=== PATIENT | male | born 1995 | race Caucasian/White ===

== ENCOUNTER 2017-02-20 17:42 | Inpatient (IN) | payer OTHER ==
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
[2017-02-20] MEDS ORDERED: LORazepam 1 MG TAB PO STA (21:18)
[2017-02-20] MEDS ORDERED: ZIPRASIDONE 20 MG VIAL IM PRN (22:21)
[2017-02-20] MEDS ORDERED: MAGNESIUM HYDROXIDE 2,400 MG/10 ML CUP PO PRN (22:21)
[2017-02-20] MEDS ORDERED: MAG HYDROX/AL HYDROX/SIMETH 30 ML CUP PO PRN (22:21)
[2017-02-20] MEDS: QUEtiapine 100 MG TAB PO SCH (22:32)
[2017-02-20] MEDS: LORazepam 1 MG TAB PO PRN (22:37)
[2017-02-21] MEDS: NICOTINE 21MG/24HR PATCH TRANSDERM SCH ×2 (10:30→12:12)
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
[2017-02-21] MEDS: LORazepam 1 MG TAB PO PRN ×2 (12:14→22:57)
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
[2017-02-21] MEDS: QUEtiapine 100 MG TAB PO SCH (21:59)
[2017-02-21] MEDS ORDERED: QUETIAPINE FUMARATE 300 MG PO SCH (22:25)
[2017-02-22] MEDS: NICOTINE 21MG/24HR PATCH TRANSDERM SCH (10:22)
--- NOTE | 2017-02-22 11:09 | P.PN ---
Progress Note - Text Interval history: The patient is found in his room sleeping in bed. He is verbally arousable. He does not wish to follow me to an interview room to speak. He does appear sedated. Staff report that he has not eaten breakfast this morning has not attended groups. They report that yesterday afternoon he continued to demonstrate bizarre behavior make bizarre statements and would come out of his room without clothing. Mental status exam: The patient is a thin male he is lying in bed covered with a blanket eye contact is poor he provides brief quiet answers to questions asked. He keeps his eyes closed. He does shake his head yes or no to respond to some questions as well. He describes his mood as being "exquisite ". He provides no responses to questions pertaining to the presence of hallucinations or specific delusions. He provides no answer to questions regarding suicidal or homicidal thinking. He demonstrates no agitated behavior. Plan: We will continue the Seroquel but I will reduce the dose to 200 mg at bedtime as it seems to 300 mg dose was too high to initiate the medication. Vital signs reviewed. We will continue to monitor him for safety. For acute symptoms of psychosis sees requiring continued psychiatric inpatient care.
[2017-02-22] MEDS: ACETAMINOPHEN TAB 325 MG TAB PO PRN (16:02)
[2017-02-22] MEDS: LORazepam 1 MG TAB PO PRN (16:02)
[2017-02-22] MEDS: QUEtiapine 200 MG TAB PO SCH (22:24)
[2017-02-22] MEDS ORDERED: WATER FOR INJECTION, STERILE 10 ML IV ONE (23:11)
[2017-02-22] MEDS ORDERED: ZIPRASIDONE 20 MG VIAL IM ONE (23:11)
[2017-02-23] MEDS: NICOTINE 21MG/24HR PATCH TRANSDERM SCH ×2 (11:51→12:37)
[2017-02-23] MEDS ORDERED: WATER FOR INJECTION, STERILE 10 ML IV ONE (12:45)
--- NOTE | 2017-02-23 13:16 | P.PN ---
Progress Note - Text Interval history: Patient seen in [facility] today for Dr. Gallardo. The patient was initially seen out in the hallway with security and nurses there and he was seated in the area by the phone. Staff were discussing with him regarding receiving an IM injection which he did not want. I talked with the patient briefly and he is agreeable to come to the interview room to talk about alternative medication options. We discussed him receiving a dose of Seroquel which he was agreeable with. He states that he does not like to get IM injections. He states this episode started after he had talked with his mom on the phone and he relates that he felt she was controlling him. He then called his stepdad and felt he was supporting his mom so he called his girlfriend which did help him. Per staff, his mom had called the unit. Current diagnosis is unspecified psychotic disorder. Mental status exam: He is alert and cooperative with the interview. His affect overall is restricted. He does not show any significant agitation at this time. Denies any current thoughts of harm to self or others. He is agreeable to initiate an oral dose of Seroquel in the daytime. He does have a dose scheduled at night. Plan: We'll order a dose of Seroquel 50 mg now and daily to accompany his 200 mg at bedtime dose. We'll monitor his response and monitor for any agitated behavior. The Geodon Im is ordered as needed. We'll monitor for any medication side effects.
[2017-02-23] MEDS: QUEtiapine 50 MG TAB PO SCH ×2 (13:40→15:44)
--- NOTE | 2017-02-23 16:41 | P.PN ---
Progress Note - Text Met with patient again at patient's request. He had refused the added dose of Seroquel earlier today. Patient talked about wanting to take 50 mg of Geodon and then also makes reference to perhaps wanting to be switched over to Geodon orally instead of the Seroquel. Discussed with the patient that the plan was to titrate up on his Seroquel to add a 50 mg dose daily to help him. He again stated that he does not like the injection of Geodon and relayed that he wanted that to be discontinued because just thought of it bothers him. He makes reference to issues of control. His thought processes do show some disorganization at times. He talks or recent stressor was dog passing away. He makes reference to a lot of thoughts going through his mind. Discussed with him again the potential benefits of taking the extra dose of Seroquel which she at this time refuses. Explained to him that the injection of Geodon is ordered only as needed.
[2017-02-23] MEDS: QUEtiapine 200 MG TAB PO SCH (21:10)
[2017-02-23] MEDS: ACETAMINOPHEN TAB 325 MG TAB PO PRN (22:56)
[2017-02-24] MEDS: QUEtiapine 50 MG TAB PO SCH (11:17)
[2017-02-24] MEDS: NICOTINE 21MG/24HR PATCH TRANSDERM SCH (11:17)
--- NOTE | 2017-02-24 15:09 | P.PN ---
Progress Note - Text Interval history: Patient seen in [facility] today for Dr. Gallardo. He reports that he feels like he was forgetful of things for a certain period after receiving the IM Geodon, makes reference during the session regarding suing related to getting the shot. He was cooperative with taking the oral Seroquel this morning and relays that it did help him slow things down. It did Not make him feel too sedated. He does describe feeling as though he has difficulties with his memory. We discussed that memory difficulties can accompany for example mood disturbance He makes reference to his mom having brought in clothes for him. Mental status exam: He is alert and cooperative. He does show some range of affect. His thought processes do show some disorganization at times. His mood overall seems to be improved. He is not showing any agitation. He does not voice any thoughts of harm to self or others. He does not verbalize any hallucinations. Plan: We'll maintain current psychotropic medication regimen. We'll monitor for any medication side effects. Dr. Gallardo to resume care of this patient starting tomorrow.
[2017-02-24] MEDS: QUEtiapine 200 MG TAB PO SCH (21:02)
[2017-02-25] MEDS: NICOTINE 21MG/24HR PATCH TRANSDERM SCH (10:12)
[2017-02-25] MEDS: QUEtiapine 50 MG TAB PO SCH (10:12)
--- NOTE | 2017-02-25 11:07 | P.PN ---
Progress Note - Text Interval history: The patient is found in the hallway he follows me to an interview room. The patient states he would like to be discharged and he is mildly agitated when he learns that we are not planning for discharge today. He spent several minutes stating he does not believe I am Dr. Gallardo. He states I have not met with him before and I have only seen him at [facility]. Reality orientation was provided but he is not able to accept that. He freely describes paranoid and persecutory thoughts. Staff report that the patient has been intrusive and has been agitating to other patients. Mental status exam: The patient is a thin male he is alert he is dressed in his own clothing. Hygiene and grooming are adequate. Eye contact is staring in nature. He suspicious and guarded. He indicates he feels I have ulterior motives. He reports feelings of irritability and anger. He demonstrates no verbal or physical aggressiveness during our session. He intrusively yells my name or approaches me in the hallway and tries to discuss his treatment in that setting. He does require redirection. Insight and judgment are poor. He is reporting no suicidal or homicidal ideation. He denies having any auditory or visual hallucinations however he is likely underreporting. He is oriented to person daily week as Saturday year and place. Plan: The patient will continue on the Seroquel we will titrate the Seroquel to 300 mg at bedtime continue the 50 mg dose during the day that was started over the weekend. The patient continues to demonstrate psychosis he does not appear to be overly sedated due to the Seroquel at this time. We will continue to provide reality orientation when possible. We will continue monitoring him for safety.
[2017-02-25] MEDS: QUEtiapine 100 MG TAB PO SCH (21:33)
[2017-02-26] MEDS: NICOTINE 21MG/24HR PATCH TRANSDERM SCH (08:35)
[2017-02-26] MEDS: QUEtiapine 50 MG TAB PO SCH (08:35)
--- NOTE | 2017-02-26 08:49 | P.PN ---
Progress Note - Text Interval history: The patient is found at the [facility] he follows me to an interview room. He reports he slept well last night however it's documented he only slept 4 hours. He has been compliant with his medication we discussed the recent titration. The patient admits that he feels aggravated that he has not been discharged. He is lacking insight into his behavior and delusional thinking. Again he spontaneously reports paranoid and persecutory thoughts. He states he plans on filing complaints with the recipient's rights officer as he is still here in the hospital. Mental status exam: The patient is a thin male he seated calmly despite his frustration he demonstrates no verbal or physical aggressiveness. Eye contact is staring in nature. He continues to feel that we and an ulterior motive in keeping him here. He continues to have some paranoid and persecutory thoughts with some grandiose thinking. He is reporting no suicidal or homicidal ideation. Insight and judgment are impaired. Thought process is more linear he will still get off of topic randomly. No abnormal involuntary movements observed. He maintains a fairly Belva affect today. He describes and agitated mood. Plan: We will continue to titrate the Seroquel and increase to 100 mg in the morning 300 mg at bedtime. Vital signs reviewed. The patient requires continued psychiatric hospitalization for symptoms of psychosis and thought disorganization at times. He is encouraged to a properly participate in the milieu.
[2017-02-26] MEDS ORDERED: QUEtiapine 50 MG TAB PO ONE (09:00)
[2017-02-26] MEDS: LORazepam 1 MG TAB PO PRN (09:29)
[2017-02-26] MEDS: QUEtiapine 100 MG TAB PO SCH (21:43)
--- NOTE | 2017-02-27 09:31 | P.PN ---
Progress Note - Text Interval history: The patient is found in his room he reluctantly gets up to speak with me in an interview room. He states that we are ruining his life by keeping him here. He feels he should never have been admitted and certainly doesn't need to continue staying here. He is quite tired during our session but not lethargic. It appears he took an Ativan sometime this morning. He has no questions regarding the Seroquel. He reports selectively attending groups. Mental status exam: The patient's is seated calmly in the chair eye contact is intermittent. He speaks quietly. He has some spontaneous speech. He briefly response to questions asked. He appears tired but he is not lethargic area he is endorsing no suicidal or homicidal thoughts. He does continue to convey some paranoid and suspicious thinking. He describes persecutory thoughts stating that this is incarceration for him and he doesn't understand why he is here. Insight and judgment are impaired. He demonstrates no abnormal involuntary movements he demonstrates no verbal or physical aggressiveness. He denies having any auditory or visual hallucinations but could be underreporting. He is oriented to person place and date. Hygiene and grooming are fair. Plan: The patient will continue on the Seroquel we will increase the evening dose to 400 mg. It's likely that he appears tired this morning due to taking Ativan. We will continue to monitor him for safety and encourage his participation in the milieu. He requires continued psychiatric hospitalization for symptoms of psychosis.
[2017-02-27] MEDS: NICOTINE 21MG/24HR PATCH TRANSDERM SCH (09:54)
[2017-02-27] MEDS: QUEtiapine 100 MG TAB PO SCH (09:54)
[2017-02-27] MEDS: LORazepam 1 MG TAB PO PRN (09:56)
[2017-02-27] MEDS: QUEtiapine 400 MG TAB PO SCH ×2 (21:57→23:23)
[2017-02-27] MEDS ORDERED: QUEtiapine 100 MG TAB PO SCH (22:15)
--- NOTE | 2017-02-28 10:24 | P.PN ---
Progress Note - Text Interval History: The patient is found in his room he reluctantly gets up to speak with me. Staff report that the patient was found in a shower with appear last evening although there was no evidence of physical contact. The patient states he was just sitting in there because it was quiet and dark. We discussed the use of medication. Specifically we addressed his concerns related to Seroquel. He continues to lack insight into his symptoms and wants to be discharged. He states his stepfather and fianc visited last evening. He has not attended groups this morning or breakfast but plans on attending later in the day. Mental status exam: The patient is a thin male he seated calmly eye contact is staring in nature. He reports his mood is fine although he is frustrated he is still here. He is reporting no suicidal or homicidal thoughts he endorses no symptoms of psychosis however he continues to make bizarre statements and demonstrates bizarre behavior. He continues to accuse me of holding him here for unknown reasons when "everyone else thinks I'm fine to leave". He demonstrates no verbal or physical aggressiveness. No abnormal involuntary movements observed. Plan: The patient will be continued on Seroquel 100 mg in the morning 400 mg in the evening. He was previously stabilized on 600 mg during a previous hospitalization. Social work will contact family to discuss the interaction last evening. Vital signs reviewed. We will continue to monitor him for safety and provide reality orientation when possible.
[2017-02-28] MEDS: NICOTINE 21MG/24HR PATCH TRANSDERM SCH (11:18)
[2017-02-28] MEDS: QUEtiapine 100 MG TAB PO SCH (11:19)
[2017-02-28] MEDS: LORazepam 1 MG TAB PO PRN (15:43)
[2017-02-28] MEDS ORDERED: QUEtiapine 400 MG TAB PO SCH (21:00)
[2017-03-01] MEDS: NICOTINE 21MG/24HR PATCH TRANSDERM SCH (10:48)
[2017-03-01] MEDS: QUEtiapine 100 MG TAB PO SCH (11:03)
[2017-03-01] MEDS: OLANZapine 5 MG TAB PO PRN (13:01)
[2017-03-01] MEDS: ACETAMINOPHEN TAB 325 MG TAB PO PRN (21:35)
[2017-03-02 06:34] VITALS: RESP 16
[2017-03-02] MEDS: NICOTINE 21MG/24HR PATCH TRANSDERM SCH (09:10)
[2017-03-02] MEDS: OLANZapine 5 MG TAB PO PRN ×2 (09:11→21:27)
--- NOTE | 2017-03-02 12:47 | PN ---
DATE OF SERVICE: 03/01/2017 CHIEF COMPLAINT: The patient was admitted due to symptoms of psychosis. He has a prior diagnosis of bipolar disorder. He had stopped taking medications. He was making references that were delusional. He had hallucinations. He had suspiciousness. INTERVAL HISTORY: The patient has been doing fair. He continued to be distressed about being in the hospital. He says that he has various side effects of his medications. He does not like the increase in his Seroquel. He notes that he has been struggling in telephone contacts he has with his parents. Apparently, his stepfather called the transition social worker and indicated that the family did not want him calling his mother. He had been calling frequently where the two of them then get into quite a bit of arguing. On the patients part, he says he feels his mother is trying to control him and does not acknowledge things that are important in his life. He points to the fact that he was stable psychiatrically for an extended period of time of over a year and that he believes the current hospitalization was not necessary. We had an extensive discussion regarding these issues including behavior he has shown on the unit. He can be quite irritable and have an angry manner. He will be avoidant. I met with the patient and transition social worker and we reviewed these issues as well as what would be a reasonable treatment plan. For the patients part, he said that he would be comfortable at taking 300 mg of Seroquel just at bedtime with none in the daytime. He feels the morning dose of Seroquel makes him tired. He discussed issues about his mother being guardian. We discussed the process by which he can approach the court and if he can move towards at least beginning to get a public guardian and from there working to get released from having guardianship. The patient stated that was his goal. We discussed the behavior that he would need to demonstrate on the unit as part of planning for discharge. On the patients part, he said he would make an effort to not get into conflicted phone calls with his mother. In fact, it was suggested that he might consider some brief contacts leaving some messages that apology for his own behavior and desire to work on having a more productive relationship. At the same time, we discussed the need for him to engage in treatment on the unit including groups and appropriate interactions with staff. We discussed ways that he can work on managing some of his periods where he gets anxious and distressed including a walking program and activities to help calm him and divert some of his attention. The patient does seem to be willing to make an effort in that regard. He has not had change in his general health. He appears to tolerate psychotropic medications. MENTAL STATUS: The patient had fairly good eye contact. He was somewhat restless though he seemed to quiet down. As far as psychomotor activity his thoughts were clear and coherent. Additionally he rambled some when he would talk about some of the issue with his mother. As the interview went on, he was more interactive. His affect has seemed to move from being anxious to a calmer manner. His mood improved as the interview went on. He had a relaxed manner by the end of the interview. There were no indications of thought disorder. ASSESSMENT: I will continue the current diagnosis and treatment plan. As noted above, we reviewed behavior issues that would be critical for the patient to move towards discharge planning. I will continue Seroquel XR 300 mg to take at 7 in the evening. In addition, I will start Zyprexa 5 mg twice a day prn. Informed the patient that he can utilize Zyprexa as needed if he does get into more distress and anxiety. That along with non pharmacological ways to help control his anxiety, he has some medications for backup. We will continue to focus on stabilization and discharge planning. I discussed with the patient that we could possibly target early in the week for discharge though not until he has follow-up with Dr. Gallardo. I suggested that discharge planning would depend on his level of function over the next few days. HELEN
--- NOTE | 2017-03-02 16:01 | P.PN ---
Progress Note - Text Date of service: 03/02/2017 Chief complaint: "I feel very good" Subjective: The patient has been seen today as follow-up, chart reviewed, case discussed with the treatment team. Patient slept about 7 hours last night. Patient has been going to groups and other unit activities. Patient reports fair appetite problems. The patient stated he feels a stable emotionally and he denies any depression, severe anxiety, or any drastic mood swings. The patient denies any manic symptoms including sustained period of time with elevated or irritable mood, impulsive or irrational behavior, inflated self-esteem, or absence need to sleep due to increases goal-directed activities. The patient denies any auditory or visual hallucinations. Also the patient denies any paranoid ideation. The patient is compliant with his medications and denies any adverse reactions. Review of other systems: Patient denies any physical symptoms besides what has been mentioned above. No breathing problems, no chest pain reported today. Objective: Vitals has been reviewed. Mental status examination; Appearance: The patient appears stated age,fairly groomed and dressed, no specific features. Gait/posture: Normal arm swinging: No abnormal movements. Attitude and behavior: engaged, cooperative, fair eye contact. Motor activity: normal psychomotor activity Speech: normal rate, rhythm and articulation Mood:not depressed Affect: normal , congruent Thought form: goal-directed, linear, coherent. Thought content: Non-delusional, denies suicidal thoughts, denies homicidal thoughts, denies intentions or plans. Perception: Denies any auditory or visual hallucinations Attention: No impairment. Patient was able to repeat serial 7. Orientation: Patient patient was fully oriented to time place person and situation. Insight: Patient has fair insight about his psychiatric disorder. Judgment: Patient has fair judgment about his psychiatric treatment. Assessment: Psychosis unspecified History of bipolar 1 disorder Rule out schizoaffective disorder Cannabis use disorder Plan: Continue with inpatient psychiatric hospitalization for monitoring and continue treatment. Continue group therapy and other unit activities. Continue psychiatric medications: Seroquel 300mg HS as mood stabilizer Discharge planning is ongoing.
[2017-03-03] MEDS: ACETAMINOPHEN TAB 325 MG TAB PO PRN (08:17)
[2017-03-03] MEDS: NICOTINE 21MG/24HR PATCH TRANSDERM SCH (08:17)
[2017-03-03] MEDS ORDERED: BENZOCAIN/BENZALKONM ORAL GEL 12 GM TUBE MM PRN (11:47)
--- NOTE | 2017-03-03 12:05 | P.PN ---
Progress Note - Text Date of service: 03/03/2017 Chief complaint: "I broke my tooth" Subjective: The patient has been seen today as follow-up, chart reviewed, case discussed with the treatment team. Patient slept about 6 hours last night. Patient has been going to groups and other unit activities. Patient reports fair appetite problems. The patient reports in general feel stable emotionally and denies feeling depressed, severe anxiety or drastic mood swings. The patient was little stressed because of dental pain. Patient reports probably he was grinding his teeth during sleep. The patient denies any auditory or visual hallucinations. Also the patient denies any paranoid ideation. The patient is compliant with his medications and denies any adverse reactions. Review of other systems: Patient denies any physical symptoms besides what has been mentioned above. No breathing problems, no chest pain reported today. Objective: Vitals has been reviewed. Mental status examination; Appearance: The patient appears stated age,fairly groomed and dressed, no specific features. Gait/posture: Normal arm swinging: No abnormal movements. Attitude and behavior: engaged, cooperative, fair eye contact. Motor activity: normal psychomotor activity Speech: normal rate, rhythm and articulation Mood: not depressed Affect: normal , congruent Thought form: goal-directed, linear, coherent. Thought content: Non-delusional, denies suicidal thoughts, denies homicidal thoughts, denies intentions or plans. Perception: Denies any auditory or visual hallucinations Attention: No impairment. Patient was able to repeat serial 7. Orientation: Patient patient was fully oriented to time place person and situation. Insight: Patient has fair insight about his psychiatric disorder. Judgment: Patient has fair judgment about his psychiatric treatment. Assessment: Psychosis unspecified History of bipolar 1 disorder Rule out schizoaffective disorder Cannabis use disorder Plan: Continue with inpatient psychiatric hospitalization for monitoring and continue treatment. Continue group therapy and other unit activities. Continue psychiatric medications: Seroquel 300mg HS as mood stabilizer Orajel and Motrin PRN for dental pain Discharge planning is ongoing.
[2017-03-03] MEDS: IBUPROFEN 200 MG TAB PO PRN ×2 (12:29→22:35)
[2017-03-03] MEDS: OLANZapine 5 MG TAB PO PRN (21:28)
[2017-03-04 00:21] VITALS: BP 139/66; PULSE 70; TEMP 98.3
[2017-03-04] MEDS: NICOTINE 21MG/24HR PATCH TRANSDERM SCH (10:58)
[2017-03-04] MEDS: OLANZapine 5 MG TAB PO PRN (10:59)
== END 2017-03-04 13:53 | disposition home or self-care (01) | DRG 885 ==
LOC: EEVIPCON 17:42 → EC 17:42 → 3MHU 21:07
PROVIDERS: ADMIT Psychiatry & Neurology Psychiatry; ATTEND Psychiatry & Neurology Psychiatry
DX: F29 Unspecified psychosis not due to a substance or known physiological condition (principal); Z91.19 Patient's noncompliance with other medical treatment and regimen; F41.9 Anxiety disorder, unspecified; F17.200 Nicotine dependence, unspecified, uncomplicated; F12.90 Cannabis use, unspecified, uncomplicated; K08.89 Other specified disorders of teeth and supporting structures; Z79.899 Other long term (current) drug therapy; Z80.7 Family history of other malignant neoplasms of lymphoid, hematopoietic and related tissues; Z82.49 Family history of ischemic heart disease and other diseases of the circulatory system; Z83.3 Family history of diabetes mellitus
CPT/HCPCS: 80306; 82075

== ENCOUNTER 2017-04-18 21:33 | Inpatient (IN) | payer MEDICAID, OTHER ==
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
[2017-04-18] MEDS ORDERED: ARIPiprazole 5 MG TAB PO STA (23:29)
[2017-04-19 00:30] VITALS: BMI 22.4
[2017-04-19] MEDS ORDERED: LORazepam 1 MG TAB PO PRN (01:50)
[2017-04-19] MEDS ORDERED: ZIPRASIDONE 20 MG VIAL IM PRN (01:50)
[2017-04-19] MEDS ORDERED: MAG HYDROX/AL HYDROX/SIMETH 30 ML CUP PO PRN (01:50)
[2017-04-19] MEDS ORDERED: MAGNESIUM HYDROXIDE 2,400 MG/10 ML CUP PO PRN (01:50)
[2017-04-19] MEDS: NICOTINE 7MG/24HR PATCH TRANSDERM SCH ×2 (09:08→09:13)
[2017-04-19] MEDS: ACETAMINOPHEN TAB 325 MG TAB PO PRN (09:13)
[2017-04-19 10:27] LABS: Basophils % (A) 0 %; CHCM 33.3; Eosinophils # (A) 0.1 k/uL (0-0.7); Eosinophils % (A) 1 %; HCT 42.9 % (39.0-53.0); HGB 13.9 gm/dL (13.0-17.5); Luc # (Auto) 0.09; Luc % (Auto) 2; Lymphocytes # (A) 1.4 k/uL (1.0-4.8); Lymphocytes % (A) 27 %; MCH 29.5 pg (25.0-35.0); MCHC 32.5 g/dL (31.0-37.0); MCV 90.8 fL (80.0-100.0); Mean Platelet Volume 7.8; Monocytes # (A) 0.4 k/uL (0-1.0); Monocytes % (A) 7 %; Neutrophils # (A) 3.2 k/uL (1.3-7.7); Neutrophils % (A) 63 %; RBC 4.72 m/uL (4.30-5.90); RDW 14.3 % (11.5-15.5); WBC 5.1 k/uL (4.0-11.0); WBC (Perox) 4.69
[2017-04-19 11:02] LABS: Hemoglobin A1C 5.2 % (4.2-6.1)
[2017-04-19 11:03] LABS: ALT 30 U/L (21-72); AST 22 U/L (17-59); Alkaline Phosphatase 72 U/L (38-126); Anion Gap 12 mmol/L; Blood Urea Nitrogen 14 mg/dL (9-20); Calcium 9.4 mg/dL (8.4-10.2); Carbon Dioxide 27 mmol/L (22-30); Chloride 105 mmol/L (98-107); Cholesterol 99 mg/dL (<200); Glucose 77 mg/dL (74-99); HDL Cholesterol 41 mg/dL (40-60); Non-African American GFR(MDRD) >60 (>60 ml/min/1.73 sqM); Potassium 4.8 mmol/L (3.5-5.1); Sodium 144 mmol/L (137-145); Total Bilirubin 0.6 mg/dL (0.2-1.3); Total Protein 7.5 g/dL (6.3-8.2)
[2017-04-19] MEDS: LORazepam 1 MG TAB PO SCH ×2 (16:17→21:08)
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
[2017-04-20 06:41] VITALS: RESP 16
[2017-04-20] MEDS: ARIPiprazole 5 MG TAB PO SCH (08:51)
[2017-04-20] MEDS: NICOTINE 21MG/24HR PATCH TRANSDERM SCH (08:51)
[2017-04-20] MEDS: LORazepam 1 MG TAB PO SCH ×3 (08:51→21:58)
--- NOTE | 2017-04-20 15:35 | P.PN ---
Progress Note - Text Progress Note Date: 04/20/17 Interval history: Patient is seen in cross coverage today for Dr. Graves. He seems to be eating well overall and does not voice any adverse psychotropic medication side effects. He does describe that he is hungry now because he didn 't eat a full lunch. He does describe feeling better. Mental status exam: He is alert and cooperative with the interview. His speech is fluent, not rapid or pressured. Thought processes overall are organized. He denies any thoughts of harm to self or others. He seems to report that his mood is doing better. In describes it as an 8 out of 10. She does not show any agitation. Plan: We'll maintain current psychotropic medication regimen. Patient is reporting improvement. We will monitor for any medication side effects monitor his ongoing response. Continue to cover this patient for Dr. Graves through the weekend.
[2017-04-20 16:57] LABS: Appearance,Urine Clear (Clear); Bilirubin,Urine Negative (Negative); Glucose,Urine (UA) Negative (Negative); Ketones,Urine Negative (Negative); Leukocyte Esterase,Urine Negative (Negative); Nitrite,Urine Negative (Negative); Protein,Urine Negative (Negative); Specific Gravity,Urine 1.008 (1.001-1.035); UA Billing (MACRO vs. MICRO) CHEM; Urobilinogen,Urine <2.0 mg/dL (<2.0)
[2017-04-21] MEDS: ARIPiprazole 5 MG TAB PO SCH (10:03)
[2017-04-21] MEDS: LORazepam 1 MG TAB PO SCH ×4 (10:03→21:29)
[2017-04-21] MEDS: NICOTINE 21MG/24HR PATCH TRANSDERM SCH (10:03)
[2017-04-21] MEDS: ACETAMINOPHEN TAB 325 MG TAB PO PRN (12:31)
--- NOTE | 2017-04-21 18:08 | P.PN ---
Progress Note - Text Progress Note Date: 04/21/17 Interval history: Patient seen in cross coverage today for Dr. Graves. He does report feeling tired and wonders if this is coming from the Abilify. His Abilify scheduled in the morning. He relates that the Ativan does not cause sedation for him. It does help calm him. He states he talked with his fiance on the phone and things seem to be going well. He states that he does feel numb today. Mental status exam: He is alert and cooperative with the interview. His speech is fluent, not rapid or pressured. Thought processes are organized. His mood seems to be pretty stable he does describe feeling numb. He denies any thoughts of harm to self or others. He does not verbalize any hallucinations, he does not make any keren delusional statements. He does not show any agitation. Plan: We'll maintain current psychotropic medication regimen. Consider changing the scheduling of Abilify to bedtime if it is felt that it is causing some sedation. Dr. Graves resume care this patient starting tomorrow.
[2017-04-22] MEDS: ARIPiprazole 5 MG TAB PO SCH (10:05)
[2017-04-22] MEDS: LORazepam 1 MG TAB PO SCH ×2 (10:05→21:40)
[2017-04-22] MEDS: NICOTINE 21MG/24HR PATCH TRANSDERM SCH ×2 (10:08→12:22)
--- NOTE | 2017-04-22 19:22 | P.PN ---
Progress Note - Text Progress Note Date: 04/29/17 Vital Signs: Temp 97.6 F 04/22/17 07:02 Pulse 50 L 04/22/17 07:02 Resp 16 04/22/17 07:02 BP 100/53 04/22/17 07:02 Pulse Ox 98 04/18/17 21:36 Interval History: Patient interviewed privately. Patient looks more dull today and less energetic than previous exams. Patient doesn't endorse any new complaints although after multiple inquiries finally admits to difficulty staying asleep at night and waking up and feeling tired. Patient has no residual signs or addi or hypomania at present. Patient is still agreeable to discharge home tomorrow. All questions/concerns answered. Mental Status Exam: Appearance: alert, well groomed, appears stated age, steady gait Behavior: no psychomotor agitation, no abnormal movements, fair eye contact Attitude: cooperative Speech: normal rate, rhythm, fluency, articulation, volume, and prosody; primary language: Qatari Mood: "tired" Affect: dull Thought processes: linear Thought content: patient does not appear to be responding to internal stimuli; patient auditory and visual hallucinations, no delusions appreciated, denies SI/HI Insight: poor - improving Judgment: fair Cognitive: oriented to all 3 spheres, average intelligence Current Medications: Generic Name Dose Route Trade Name Freq PRN Reason Acetaminophen 650 mg Tylenol Tab PO Q4HR PRN Pain/Discomfort Al Hydroxide/Mg Hydroxide 30 ml Maalox PO Q4HR PRN GI Upset Aripiprazole 5 mg Abilify PO HS KARLY Lorazepam 1 mg Ativan PO TID PRN Anxiety, Agitation Lorazepam 1 mg Ativan PO BID KARLY Magnesium Hydroxide 2,400 mg Milk Of Magnesia PO DAILY PRN Constipation Nicotine 1 patch Habitrol 21mg/24hr Patch TRANSDERM DAILY KARLY Trazodone HCl 150 mg Desyrel PO HS KARLY Ziprasidone 20 mg Geodon IM BID PRN Agitation or Acute Psychosis
[2017-04-22] MEDS ORDERED: ARIPiprazole 5 MG TAB PO SCH (21:00)
[2017-04-22] MEDS ORDERED: traZODone HCL 50 MG TAB PO SCH (21:00)
[2017-04-23 06:21] VITALS: PULSE 51; TEMP 97.9
[2017-04-23 06:22] VITALS: BP 92/49
[2017-04-23] MEDS: NICOTINE 21MG/24HR PATCH TRANSDERM SCH ×2 (10:14→12:16)
[2017-04-23] MEDS: LORazepam 1 MG TAB PO SCH ×2 (10:14→12:16)
[2017-04-23] MEDS ORDERED: ARIPiprazole 5 MG TAB PO SCH (21:00)
--- NOTE | 2017-05-12 16:58 | P.DS ---
Providers Date of admission: 04/18/17 23:24 Expected date of discharge: 04/23/17 Attending physician: Lucas Graves DO Consults: 04/19/17 01:50 Consult Physician Routine Consulting Provider: Reyes Ag Consult Reason/Comments: H and P with medical follow up Do you want consulting provider notified?: Yes, Notify in am Primary care physician: Mauro Beaver - Discharge Diagnosis(es) (1) Bipolar I disorder Status: Inactive Hospital Course: HOSPITAL COURSE: * Legal status at discharge: Voluntary * Compliant with medications: Yes * Reported adverse side effects: No * Required restraints/seclusion: No * Emergency Medication administered: No * Attended group, recreational, activity therapies: Intermittently Patient is a 22-year-old male who was recently discharged on 2016 after an inpatient admission for manic episode. He was stabilized on Abilify, Seroquel XR, and Ativan. Patient was transitioned to Abilify Maintena 400 mg IM every 4 weeks and discharged home prescriptions for Seroquel XR and Ativan. Patient was insttructed to continue his Seroquel XR for at least 14 days and to follow-up with his psychiatrist and discussed tapering at that time. Per collateral from family approximately 3 weeks after discharge patient started to have breakthrough manic symptoms after otherwise doing well. Upon presentation patient was hyperverbal, but speech was not pressured. He was overall logical, circumstantial bordering on tangential. During his hospital course patient reported great difficulty sleeping since Seroquel XR had been stopped. Patient was started on trazodone which was titrated up to 150 mg by mouth daily at bedtime. Ativan was continued on milligram twice a day. Abilify 5 mg by mouth daily at bedtime was added to supplement Abilify Maintena , which worked well and resolved breakthrough manic symptoms. Prior to discharge, family was home with patient, his mother who is his guardian, community mental health social worker, and attending. Hospital course, treatment plan, medications, risks, benefits, side effects, realistic expectations, alternatives were discussed. All questions and concerns were answered. Patient and mother voiced understanding. At time of discharge, patient was calm and cooperative with no overt signs of depression or addi. He was sleeping at least 5 hours each night. He was eating well and drinking well. He denied SI /HI/ AVH. Patient will follow-up with [facility] for next injection. Discharge Medication List ARIPiprazole [Abilify] 5 mg PO HS #14 tab 04/23/17 [Rx] LORazepam [Ativan] 1 mg PO BID #14 tab 04/23/17 [Rx] Nicotine 21Mg/24Hr Patch [Habitrol] 1 patch TRANSDERM DAILY #14 patch 04/23/17 [ Rx] traZODone HCL 150 mg PO HS #14 tablet 04/23/17 [Rx] ARIPiprazole IM [Abilify Maintena] 400 mg IM QMONTH #1 vial 04/29/17 [Rx] MENTAL STATUS EXAM: Appearance: alert, well groomed, appears stated age, steady gait Behavior: no psychomotor agitation or psychomotor retardation, no abnormal movements, fair eye contact Attitude: cooperative Speech: normal rate, rhythm, fluency, articulation, volume, and prosody; primary language: Norwegian Mood: "pretty good" Affect: congruent, reactive Thought processes: linear Thought content: patient does not appear to be responding to internal stimuli ; patient denies auditory and visual hallucinations, no delusions appreciated Insight: fair Judgment: limited to fair - improving Cognitive: oriented to all 3 spheres, average intelligence Patient Condition at Discharge: Good Plan - Discharge Summary New Discharge Prescriptions: New ARIPiprazole [Abilify] 5 mg PO HS #14 tab LORazepam [Ativan] 1 mg PO BID #14 tab Nicotine 21Mg/24Hr Patch [Habitrol] 1 patch TRANSDERM DAILY #14 patch traZODone HCL 150 mg PO HS #14 tablet Continue ARIPiprazole IM [Abilify Maintena] 400 mg IM QMONTH #1 vial Discontinued clonazePAM [KlonoPIN] 0.5 mg PO BID #28 tab QUEtiapine XR [SEROquel XR] 300 mg PO HS #14 tab Acetaminophen [Tylenol Extra Strength] 500 mg PO DAILY PRN PRN Reason: Pain Discharge Medication List ARIPiprazole [Abilify] 5 mg PO HS #14 tab 04/23/17 [Rx] LORazepam [Ativan] 1 mg PO BID #14 tab 04/23/17 [Rx] Nicotine 21Mg/24Hr Patch [Habitrol] 1 patch TRANSDERM DAILY #14 patch 04/23/17 [ Rx] traZODone HCL 150 mg PO HS #14 tablet 04/23/17 [Rx] ARIPiprazole IM [Abilify Maintena] 400 mg IM QMONTH #1 vial 04/29/17 [Rx] Follow up Appointment(s)/Referral(s): [facility] [Outside] - 04/23/17 5:00 pm (04/23/17 @ 5:00PM w/ Elva Shah 04/29/17 @10:30 w/ Dr. Jaimes) Mauro Beaver MD [Primary Care Provider] - 1-2 days Patient Instructions/Handouts: How to Stop Smoking (DC), Cigarette Smoking and Your Health (GEN), Bipolar Disorder (DC) Activity/Diet/Wound Care/Special Instructions: Take all medications as prescribed and keep your follow-up appointment. Do not take any street drugs or drink alcohol. Crisis Line 2 [phone]. Discharge Disposition: HOME SELF-CARE
== END 2017-04-23 14:02 | disposition home or self-care (01) | DRG 885 ==
LOC: EC 21:33 → 3MHU 23:24
PROVIDERS: ADMIT Psychiatry & Neurology Psychiatry; ATTEND Psychiatry & Neurology Psychiatry
DX: F31.2 Bipolar disorder, current episode manic severe with psychotic features (principal); F20.9 Schizophrenia, unspecified; F17.200 Nicotine dependence, unspecified, uncomplicated; Z79.899 Other long term (current) drug therapy; Z80.7 Family history of other malignant neoplasms of lymphoid, hematopoietic and related tissues; T43.505A Adverse effect of unspecified antipsychotics and neuroleptics, initial encounter; R49.0 Dysphonia; Z91.5 Personal history of self-harm; Z87.898 Personal history of other specified conditions
CPT/HCPCS: 80053; 80061; 80306; 81003; 82075; 83036; 84443; 85025; 99285

== ENCOUNTER 2019-03-28 23:53 | Emergency (ER) | payer MEDICAID, OTHER ==
[2019-03-29] VITALS: BP 137/82; PULSE 52; RESP 18; TEMP 97.5
--- NOTE | 2019-03-29 00:10 | ED ---
General Adult HPI - General Source: patient, family Mode of arrival: ambulatory Limitations: no limitations <LamontBowen sun Gustavo - Last Filed: 03/29/19 01:09> <Orin Miranda Yaritza - Last Filed: 03/29/19 07:40> - General Chief complaint: Psychiatric Symptoms Stated complaint: Mental Health Time Seen by Provider: 03/29/19 00:02 - History of Present Illness Initial comments: Dictation was produced using [employer] dictation software. please excuse any grammatical, word or spelling errors. Chief Complaint: Patient is a 24-year-old male presents with suicidal ideation. History of Present Illness: 24-year-old male who presents today with suicidal ideation. Patient has been in and out of the hospital for suicidal complaints and other psychiatric acute issues before. Patient has outpatient psychiatrist. He has history of bipolar disorder. Patient and family were initially at [facility] however they were redirected to come here for psych services. Patient states he is feeling suicidal. He does not have a detailed plan. Patient denies having been suicidal before. He denies homicidality. No auditory or visual hallucinations. Presents with family family is concerned about his well-being and accompanied patient to the emergency department. She denies any other complaints at this time. The ROS documented in this emergency department record has been reviewed and confirmed by me. Those systems with pertinent positive or negative responses have been documented in the HPI. All other systems are other negative and/or noncontributory. PHYSICAL EXAM: General Impression: Alert and oriented x3, not in acute distress HEENT: Normocephalic atraumatic, extra-ocular movements intact, pupils equal and reactive to light bilaterally, mucous membranes moist. Cardiovascular: Heart regular rate and rhythm, S1&S2 audible, no murmurs, rubs or gallops Chest: Lungs clear to auscultation bilaterally, no rhonchi, no wheeze, no rales Abdomen: Bowel sounds present, abdomen soft, non-tender, non-distended, no organomegaly Musculoskeletal: Pulses present and equal in all extremities, no peripheral edema Motor: no focal deficits noted Neurological: CN II-XII grossly intact, no focal motor or sensory deficits noted Skin: Intact with no visualized rashes Psych: Flat affect ED course: 24-year-old male presents with suicidal ideation. Ends upon arrival are within acceptable limits. Patient medically cleared for EPS evaluation. Patient care signed out to Dr. Miranda for follow-up of EPS recommendations. (Bowen Rice) - Related Data Previous Rx's Medication Instructions Recorded ARIPiprazole [Abilify] 5 mg PO HS #14 tab 04/23/17 LORazepam [Ativan] 1 mg PO BID #14 tab 04/23/17 Nicotine 21Mg/24Hr Patch [Habitrol] 1 patch TRANSDERM DAILY #14 patch 04/23/17 traZODone HCL 150 mg PO HS #14 tablet 04/23/17 ARIPiprazole IM [Abilify Maintena] 400 mg IM QMONTH #1 vial 04/29/17 Allergies Allergy/AdvReac Type Severity Reaction Status Date / Time [place] Allergy Rash/Hives Uncoded 04/19/17 00:37 Review of Systems ROS Other: All systems not noted in ROS Statement are negative. <Bowen Rice - Last Filed: 03/29/19 01:09> ROS Other: All systems not noted in ROS Statement are negative. <Orin Miranda - Last Filed: 03/29/19 07:40> ROS Statement: Those systems with pertinent positive or pertinent negative responses have been documented in the HPI. Past Medical History Past Medical History: No Reported History Additional Past Medical History / Comment(s): he thinks that he may of have a seizure at that time per history-- Pt states that he has never been dx with seizure history. History of Any Multi-Drug Resistant Organisms: None Reported Past Surgical History: Orthopedic Surgery, Tonsillectomy Past Anesthesia/Blood Transfusion Reactions: No Reported Reaction Past Psychological History: Anxiety, Bipolar, Depression, Schizophrenia Smoking Status: Current every day smoker Past Alcohol Use History: None Reported Past Drug Use History: None Reported - Past Family History Mother History Unknown: Yes Additional Family Medical History / Comment(s): Mother is alive with history of diabetes, hypertension, stroke, chronic back problems. Father Additional Family Medical History / Comment(s): Patient states he does not know his father but does know he has Hodgkin's lymphoma. Brother(s) Additional Family Medical History / Comment(s): Patient has 7/2 brothers and does not know any medical problems. Patient has 1 half-sister and he does not know her medical problems. <Bowen Rice Gustavo - Last Filed: 03/29/19 01:09> General Exam Limitations: no limitations <Bowen Rice - Last Filed: 03/29/19 01:09> Course Vital Signs 03/28/19 23:54 Temperature 97.5 F L Pulse Rate 52 L Respiratory 18 Rate Blood Pressure 137/82 O2 Sat by Pulse 100 Oximetry Medical Decision Making - Lab Data Result diagrams: 03/29/19 01:54 03/29/19 01:54 <Orin Miranda - Last Filed: 03/29/19 07:40> - Lab Data Lab Results 03/29/19 03/29/19 03/29/19 Range/Units 00:30 00:30 01:54 WBC 8.2 (3.8-10.6) k/uL RBC 4.96 (4.30-5.90) m/uL Hgb 14.0 (13.0-17.5) gm/dL Hct 42.2 (39.0-53.0) % MCV 85.1 (80.0-100.0) fL MCH 28.2 (25.0-35.0) pg MCHC 33.2 (31.0-37.0) g/dL RDW 13.3 (11.5-15.5) % Plt Count 174 (150-450) k/uL Neutrophils % 63 % Lymphocytes % 27 % Monocytes % 7 % Eosinophils % 1 % Basophils % 1 % Neutrophils # 5.2 (1.3-7.7) k/uL Lymphocytes # 2.2 (1.0-4.8) k/uL Monocytes # 0.5 (0-1.0) k/uL Eosinophils # 0.1 (0-0.7) k/uL Basophils # 0.1 (0-0.2) k/uL Sodium (137-145) mmol/L Potassium (3.5-5.1) mmol/L Chloride (98-107) mmol/L Carbon Dioxide (22-30) mmol/L Anion Gap mmol/L BUN (9-20) mg/dL Creatinine (0.66-1.25) mg/dL Est GFR (CKD-EPI)AfAm (>60 ml/min/1.73 sqM) Est GFR (CKD-EPI)NonAf (>60 ml/min/1.73 sqM) Glucose (74-99) mg/dL Calcium (8.4-10.2) mg/dL Total Bilirubin (0.2-1.3) mg/dL AST (17-59) U/L ALT (21-72) U/L Alkaline Phosphatase (38-126) U/L Total Protein (6.3-8.2) g/dL Albumin (3.5-5.0) g/dL Urine Color Yellow Urine Appearance Clear (Clear) Urine pH 6.0 (5.0-8.0) Ur Specific [place] 1.023 (1.001-1.035) Urine Protein Trace H (Negative) Urine Glucose (UA) Negative (Negative) Urine Ketones Negative (Negative) Urine Blood Negative (Negative) Urine Nitrite Negative (Negative) Urine Bilirubin Negative (Negative) Urine Urobilinogen <2.0 (<2.0) mg/dL Ur Leukocyte Esterase Negative (Negative) Urine Opiates Screen Detected H (NotDetected) Ur Oxycodone Screen Not Detected (NotDetected) Urine Methadone Screen Not Detected (NotDetected) Ur Propoxyphene Screen Not Detected (NotDetected) Ur Barbiturates Screen Not Detected (NotDetected) U Tricyclic Antidepress Not Detected (NotDetected) Ur Phencyclidine Scrn Not Detected (NotDetected) Ur Amphetamines Screen Not Detected (NotDetected) U Methamphetamines Scrn Not Detected (NotDetected) U Benzodiazepines Scrn Not Detected (NotDetected) Urine Cocaine Screen Not Detected (NotDetected) U Marijuana (THC) Screen Detected H (NotDetected) 03/29/19 Range/Units 01:54 WBC (3.8-10.6) k/uL RBC (4.30-5.90) m/uL Hgb (13.0-17.5) gm/dL Hct (39.0-53.0) % MCV (80.0-100.0) fL MCH (25.0-35.0) pg MCHC (31.0-37.0) g/dL RDW (11.5-15.5) % Plt Count (150-450) k/uL Neutrophils % % Lymphocytes % % Monocytes % % Eosinophils % % Basophils % % Neutrophils # (1.3-7.7) k/uL Lymphocytes # (1.0-4.8) k/uL Monocytes # (0-1.0) k/uL Eosinophils # (0-0.7) k/uL Basophils # (0-0.2) k/uL Sodium 141 (137-145) mmol/L Potassium 3.9 (3.5-5.1) mmol/L Chloride 107 (98-107) mmol/L Carbon Dioxide 25 (22-30) mmol/L Anion Gap 9 mmol/L BUN 10 (9-20) mg/dL Creatinine 0.71 (0.66-1.25) mg/dL Est GFR (CKD-EPI)AfAm >90 (>60 ml/min/1.73 sqM) Est GFR (CKD-EPI)NonAf >90 (>60 ml/min/1.73 sqM) Glucose 92 (74-99) mg/dL Calcium 9.7 (8.4-10.2) mg/dL Total Bilirubin 0.8 (0.2-1.3) mg/dL AST 26 (17-59) U/L ALT 20 L (21-72) U/L Alkaline Phosphatase 76 (38-126) U/L Total Protein 8.2 (6.3-8.2) g/dL Albumin 4.6 (3.5-5.0) g/dL Urine Color Urine Appearance (Clear) Urine pH (5.0-8.0) Ur Specific [place] (1.001-1.035) Urine Protein (Negative) Urine Glucose (UA) (Negative) Urine Ketones (Negative) Urine Blood (Negative) Urine Nitrite (Negative) Urine Bilirubin (Negative) Urine Urobilinogen (<2.0) mg/dL Ur Leukocyte Esterase (Negative) Urine Opiates Screen (NotDetected) Ur Oxycodone Screen (NotDetected) Urine Methadone Screen (NotDetected) Ur Propoxyphene Screen (NotDetected) Ur Barbiturates Screen (NotDetected) U Tricyclic Antidepress (NotDetected) Ur Phencyclidine Scrn (NotDetected) Ur Amphetamines Screen (NotDetected) U Methamphetamines Scrn (NotDetected) U Benzodiazepines Scrn (NotDetected) Urine Cocaine Screen (NotDetected) U Marijuana (THC) Screen (NotDetected) Disposition <Bowen Rice - Last Filed: 03/29/19 01:09> Is patient prescribed a controlled substance at d/c from ED?: No - Out of Hospital Transfer - Req. Specs Out of Hospital Transfer - Requested Specifics: Other Non-Acute ([place]) <Orin Miranda - Last Filed: 03/29/19 07:40> Clinical Impression: Suicidal ideations Disposition: TRANSFER TO PSYCH HOSP/UNIT Condition: Stable Referrals: Mauro Beaver MD [Primary Care Provider] - 1-2 days
[2019-03-29 00:59] LABS: Amphetamine Screen,Urine Not Detected (NotDetected); Barbiturate Screen,Urine Not Detected (NotDetected); Benzodiazepines Screen,Urine Not Detected (NotDetected); Cocaine Screen,Urine Not Detected (NotDetected); Methadone Screen, Urine Not Detected (NotDetected); Opiate Screen,Urine Detected (NotDetected); Oxycodone Screen, Urine Not Detected (NotDetected); Phencyclidine Screen,Urine Not Detected (NotDetected); Tricyclic Antidepressant,Urine Not Detected (NotDetected); Urn Cannabinoid Scrn Detected (NotDetected)
[2019-03-29 01:57] LABS: Appearance,Urine Clear (Clear); Bilirubin,Urine Negative (Negative); Blood,Urine Negative (Negative); Color,Urine Yellow; Glucose,Urine (UA) Negative (Negative); Ketones,Urine Negative (Negative); Leukocyte Esterase,Urine Negative (Negative); Nitrite,Urine Negative (Negative); Protein,Urine Trace (Negative); Specific Gravity,Urine 1.023 (1.001-1.035); Urobilinogen,Urine <2.0 mg/dL (<2.0)
[2019-03-29 02:16] LABS: Basophils # (A) 0.1 k/uL (0-0.2); Basophils % (A) 1 %; Eosinophils # (A) 0.1 k/uL (0-0.7); Eosinophils % (A) 1 %; HCT 42.2 % (39.0-53.0); Lymphocytes # (A) 2.2 k/uL (1.0-4.8); Lymphocytes % (A) 27 %; MCH 28.2 pg (25.0-35.0); MCHC 33.2 g/dL (31.0-37.0); MCV 85.1 fL (80.0-100.0); Mean Platelet Volume 7.3; Monocytes # (A) 0.5 k/uL (0-1.0); Monocytes % (A) 7 %; Neutrophils # (A) 5.2 k/uL (1.3-7.7); Neutrophils % (A) 63 %; Platelet Count 174 k/uL (150-450); RBC 4.96 m/uL (4.30-5.90); RDW 13.3 % (11.5-15.5); WBC 8.2 k/uL (3.8-10.6)
[2019-03-29 02:24] LABS: ALT 20 U/L (21-72); AST 26 U/L (17-59); African American GFR (CKD) >90 (>60 ml/min/1.73 sqM); Albumin 4.6 g/dL (3.5-5.0); Alkaline Phosphatase 76 U/L (38-126); Anion Gap 9 mmol/L; Blood Urea Nitrogen 10 mg/dL (9-20); Calcium 9.7 mg/dL (8.4-10.2); Carbon Dioxide 25 mmol/L (22-30); Chloride 107 mmol/L (98-107); Glucose 92 mg/dL (74-99); Potassium 3.9 mmol/L (3.5-5.1); Sodium 141 mmol/L (137-145); Total Bilirubin 0.8 mg/dL (0.2-1.3); Total Protein 8.2 g/dL (6.3-8.2)
[2019-03-29] MEDS ORDERED: LORazepam 1 MG TAB PO STA (05:11)
== END 2019-03-29 08:00 ==
LOC: EC 23:53
DX: R45.851 Suicidal ideations (principal); F17.200 Nicotine dependence, unspecified, uncomplicated; Z91.018 Allergy to other foods; Z86.59 Personal history of other mental and behavioral disorders
CPT/HCPCS: 36415; 80053; 80306; 81003; 82075; 85025; 99285

== ENCOUNTER 2019-04-08 15:14 | Inpatient (IN) | payer MEDICAID, OTHER ==
--- NOTE | 2019-04-08 15:36 | ED ---
General Adult HPI - General Stated complaint: Mental health Time Seen by Provider: 04/08/19 15:19 - History of Present Illness Initial comments: Dictation was produced using [employer] dictation software. please excuse any grammatical, word or spelling errors. Chief Complaint: 24-year-old male with past medical history of psychiatric disease presents with acute addi. History of Present Illness: 24-year-old male presents with addi. Patient is unreliable historian at this time. According to EMS patient has been having manic behaviors. Patient was brought in by EMS. Mother allegedly called EMS. Patient has history of psychiatric disease. Recently admitted to the hospital. She has no medical complaints at this time. The ROS documented in this emergency department record has been reviewed and confirmed by me. Those systems with pertinent positive or negative responses have been documented in the HPI. All other systems are other negative and/or noncontributory. PHYSICAL EXAM: General Impression: Alert and oriented x3, not in acute distress HEENT: Normocephalic atraumatic, extra-ocular movements intact, pupils equal and reactive to light bilaterally, mucous membranes moist. Cardiovascular: Heart regular rate and rhythm Chest: Bilateral breath sounds Abdomen: abdomen soft, Motor: no focal deficits noted Neurological: CN II-XII grossly intact, no focal motor or sensory deficits noted Psych: Manic with tangential speech ED course: 24-year-old male presents with acute psychosis. Upon arrival are within acceptable limits. Medically speaking patient is well-appearing. Patient medically cleared for EPS evaluation. Patient was evaluated by EPS and recommended inpatient psychiatric admission. - Related Data Home Medications Medication Instructions Recorded Confirmed ARIPiprazole [Abilify Maintena] 300 mg IM Q28D 04/08/19 04/08/19 QUEtiapine [SEROquel] 25 - 50 mg PO DAILY PRN 04/08/19 04/08/19 Allergies Allergy/AdvReac Type Severity Reaction Status Date / Time Cantaloupe Allergy Rash/Hives Uncoded 04/08/19 16:53 Review of Systems ROS Statement: Those systems with pertinent positive or pertinent negative responses have been documented in the HPI. ROS Other: All systems not noted in ROS Statement are negative. Past Medical History Past Medical History: No Reported History Additional Past Medical History / Comment(s): he thinks that he may of have a seizure at that time per history-- Pt states that he has never been dx with seizure history. History of Any Multi-Drug Resistant Organisms: None Reported Past Surgical History: Orthopedic Surgery, Tonsillectomy Past Anesthesia/Blood Transfusion Reactions: No Reported Reaction Past Psychological History: Anxiety, Bipolar, Depression, Schizophrenia Smoking Status: Current every day smoker Past Alcohol Use History: None Reported Past Drug Use History: None Reported - Past Family History Mother History Unknown: Yes Additional Family Medical History / Comment(s): Mother is alive with history of diabetes, hypertension, stroke, chronic back problems. Father Additional Family Medical History / Comment(s): Patient states he does not know his father but does know he has Hodgkin's lymphoma. Brother(s) Additional Family Medical History / Comment(s): Patient has 7/2 brothers and does not know any medical problems. Patient has 1 half-sister and he does not know her medical problems. Course Vital Signs 04/08/19 04/08/19 04/08/19 15:27 17:36 17:47 Temperature 98.3 F 98.3 F 98.3 F Pulse Rate 69 69 69 Respiratory 18 18 18 Rate Blood Pressure 165/85 165/85 165/85 O2 Sat by Pulse 98 98 98 Oximetry Medical Decision Making - Lab Data Lab Results 04/08/19 Range/Units 15:43 Urine Opiates Screen Not Detected (NotDetected) Ur Oxycodone Screen Not Detected (NotDetected) Urine Methadone Screen Not Detected (NotDetected) Ur Propoxyphene Screen Not Detected (NotDetected) Ur Barbiturates Screen Not Detected (NotDetected) U Tricyclic Antidepress Detected H (NotDetected) Ur Phencyclidine Scrn Not Detected (NotDetected) Ur Amphetamines Screen Not Detected (NotDetected) U Methamphetamines Scrn Not Detected (NotDetected) U Benzodiazepines Scrn Not Detected (NotDetected) Urine Cocaine Screen Not Detected (NotDetected) U Marijuana (THC) Screen Detected H (NotDetected) Disposition Clinical Impression: Acute psychosis Disposition: ADMITTED IP TO THIS [facility] Condition: Fair Decision Time: 07:11
[2019-04-08 16:42] LABS: Amphetamine Screen,Urine Not Detected (NotDetected); Barbiturate Screen,Urine Not Detected (NotDetected); Benzodiazepines Screen,Urine Not Detected (NotDetected); Cocaine Screen,Urine Not Detected (NotDetected); Methadone Screen, Urine Not Detected (NotDetected); Opiate Screen,Urine Not Detected (NotDetected); Oxycodone Screen, Urine Not Detected (NotDetected); Phencyclidine Screen,Urine Not Detected (NotDetected); Tricyclic Antidepressant,Urine Detected (NotDetected); Urn Cannabinoid Scrn Detected (NotDetected)
[2019-04-08] MEDS ORDERED: LORazepam 2 MG/ML INJ IM STA (17:13)
[2019-04-08] MEDS ORDERED: HALOPERIDOL LACTATE 5 MG/ML 1 ML VIAL IM ONE (17:30)
[2019-04-08] MEDS ORDERED: MAGNESIUM HYDROXIDE 2,400 MG/10 ML CUP PO PRN (17:47)
[2019-04-08] MEDS ORDERED: MAG HYDROX/AL HYDROX/SIMETH 30 ML CUP PO PRN (17:47)
[2019-04-08] MEDS: QUEtiapine 50 MG TAB PO SCH (23:41)
[2019-04-08] MEDS: LORazepam 2 MG/ML INJ IM PRN (23:42)
[2019-04-08] MEDS: HALOPERIDOL LACTATE 5 MG/ML 1 ML VIAL IM PRN (23:42)
[2019-04-09] MEDS: QUEtiapine 50 MG TAB PO SCH (00:38)
[2019-04-09] MEDS: NICOTINE 7MG/24HR PATCH TRANSDERM SCH (08:22)
[2019-04-09] MEDS: LORazepam 1 MG TAB PO PRN ×2 (10:28→18:59)
--- NOTE | 2019-04-09 13:01 | P.HP ---
Psychiatric H&P - . H&P Date: 04/09/19 History & Physical: Allergies Allergy/AdvReac Type Severity Reaction Status Date / Time Cantaloupe Allergy Rash/Hives Uncoded 04/08/19 16:53 Vital Signs Temp 98.4 F 04/08/19 18:42 Pulse 144 H 04/09/19 05:41 Resp 18 04/09/19 05:41 BP 147/89 04/09/19 05:41 Pulse Ox 97 04/08/19 18:42 Intake & Output 04/08/19 04/09/19 04/09/19 18:59 06:59 18:59 Weight 64.8 kg Laboratory Last Values Urine Opiates Screen Not Detected (NotDetected) 04/08/19 15:43 Ur Oxycodone Screen Not Detected (NotDetected) 04/08/19 15:43 Urine Methadone Screen Not Detected (NotDetected) 04/08/19 15:43 Ur Propoxyphene Screen Not Detected (NotDetected) 04/08/19 15:43 Ur Barbiturates Screen Not Detected (NotDetected) 04/08/19 15:43 U Tricyclic Antidepress Detected (NotDetected) H 04/08/19 15:43 Ur Phencyclidine Scrn Not Detected (NotDetected) 04/08/19 15:43 Ur Amphetamines Screen Not Detected (NotDetected) 04/08/19 15:43 U Methamphetamines Scrn Not Detected (NotDetected) 04/08/19 15:43 U Benzodiazepines Scrn Not Detected (NotDetected) 04/08/19 15:43 Urine Cocaine Screen Not Detected (NotDetected) 04/08/19 15:43 U Marijuana (THC) Screen Detected (NotDetected) H 04/08/19 15:43 04/09/19 12:48 IDENTIFYING DATA: Patient is a 24-year-old male is currently and lives with his and one child is son in a trailer HPI: Patient presented to the hospital after his mother called EMS due to concerns that patient was exhibiting manic behavior at his house. Patient was evaluated in the ER yesterday and appeared to be manic and agitated and exhibiting bizarre behaviors. On admission to the unit patient was aggressive and intrusive and trying to open up to worse from other patient's rooms and required when necessary medications. Patient was escorted to the quiet room however patient hit his nose the door and suffered a superficial small laceratio n which was attended to by the nurses and the doctor. Today patient was seen near the nurse's desk being intrusive and inappropriate loud however was directable and agreeable to be interviewed in the conference room. Patient appears to have a blank stare and was inappropriate with expert medical writer during the conversation. Patient has poor insight and poor judgment and poor impulse control. Patient was also tangential and illogical in his responses. He states that his family and his mother have a problem with him and that he was "blowing up" on his mother which is why he is in the hospital. Patient spoke about wanting to leave to take care of his kid and asked multiple options to expert medical writer about himself. Patient also stated that he 7 times and states that this is why he went to [facility] and that he also on the ambulance ride coming to [place] in hospital. Patient states that he stayed 10 days at [facility] and received his Abilify IM injection. When asked about other medications that helped him patient states that only Seroquel helps them when asked about lithium and Depakote, patient stated that Depakote gets me "hard on my chest". Patient denies any suicidal or homicidal ideations intent or plan. At this time patient denies any auditory or visual hallucinations. Patient admits to using marijuana however does not specify the quantity. Patient claims that he is a every day smoker. He denies any other drugs or alcohol use. PAST PSYCHIATRIC HISTORY: Patient states that he has a history of bipolar disorder with several hospitalizations his last hospitalization was at [facility] and he received Abilify Maintenna 400 mg IM injection last on 04/01 and has been getting this monthly injection through [facility] prior to that. Patient was also discharged on Lamictal 100 mg daily. Patient is previously been on Seroquel in the past. Patient admits to 3 previous suicide attempts however does not give information about them. She was last hospitalized on the mental unit on 04/2017 for bipolar addi PMH:denies ALLERGIES: as per EMR CHEMICAL DEPENDENCY HISTORY: as per HPI FAMILY PSYCHIATRIC/SUBSTANCE USE HISTORY: He states that "bipolar runs in my family". SOCIAL HISTORY: Patient states that he was born and raised in [place] and dropped out of the 12th grade to start working. Patient currently lives with his one child who is his son and lives in a trailer. MENTAL STATUS EXAM: General Appearance: Patient appears to be stated age is alert, intrusive, and appears to be bizarre. Patient has poor hygiene and poor grooming and a blank stare. Behavior: Patient is seated without any agitated behavior however appears to be intrusive at times. Speech: Patient's speech is fluent and nonpressured. Monotone Mood/Affect: Patient reports their mood is happy, affect is incongruent and constricted. Suicidality/Homicidality: Patient denies having any suicidal or homicidal ideation intent or plan. Perceptions: Patient denies any auditory or visual hallucinations. Though content/process: Patient has disorganized thought process is tangential and illogical. Memory and concentration: AOX3, grossly intact for the purposes of this session. Cannot spell "WORLD" backwards Judgment and insight: Poor STRENGTHS/WEAKNESSES: strength is that patient has a supportive family. Weaknesses that patient has chronic history of mental illness and noncompliance. INTELLECT: Below average IMPRESSIONS: Bipolar disorder, currently in manic episode severe without psychotic features Cannabis use disorder Nicotine dependence PLAN: -Patient is admitted under voluntary status to MHU for stabilization of psychiatric symptoms and safety. Patient signed adult voluntary form and medication consent and is placed in patient's chart. -Medications : Will start patient on Seroquel 100 mg daily at bedtime for mood stabilization/insomnia. This will be increased as tolerated. Patient will also be started on lithium 450 mg twice a day for mood stabilization. Patient is already on and received Abilify Maintenna 400 mg every monthly last given on 04/01/2019. Will be due for her next injection on 04/29/2019 -He is on and Haldol and Ativan PRN for agitation/aggression -Patient was informed of the risks, benefits and side effects of the medication and patient verbally consented to taking the medications. Patient signed med consent form and was placed in chart. -NRT - nicotine patch - on board for discharge planning
[2019-04-09] MEDS: LITHIUM CARBONATE 150 MG CAP PO SCH ×2 (13:35→21:41)
--- NOTE | 2019-04-09 18:22 | P.CONS ---
History of Present Illness - Reason for Consult Consult date: 04/09/19 Medical management Requesting physician: Leif Cruz - Chief Complaint Manic - History of Present Illness Consultation: This is a 24-year-old patient who follows with Dr. David Beaver. Patient was brought into the ER who presented to the [facility]. Per the EMS patient is having really manic behavior. Patient's mother had called the EMS. When questioning the patient patient sometimes rather divergent. He is not sure why he is here. He is very hyperactive during the interview. Somewhat restless. He wants to start working with me. 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 Appetite is good. No change in bowel pattern no fever no chills. Denies any heartburn. Difficult to get a proper history from the patient. Patient does smoke cigarettes. Possibly marijuana. Currently not working. Review of systems: GEN.: None EYES: None HEENT: None NECK: None RESPIRATORY: None CARDIOVASCULAR: None GASTROINTESTINAL: None GENITOURINARY: None MUSCULOSKELETAL: None LYMPHATICS: None HEMATOLOGICAL: None PSYCHIATRY: As above NEUROLOGICAL: None Social history: Currently not employed. Lives with his and a child. Does smoke cigar ettes. He apparently in the past he has used some crack cocaine and heroine for a limited use. Does agree to smoking cigarettes. Physical examination: VITAL SIGNS: 98.3, 69, 18, 165/85, 98% room air GENERAL: BMI 19.9, sitting up somewhat restless. EYES: Pupils equal. Conjunctiva normal. HEENT: External appearance of nose and ears normal, oral cavity grossly normal. NECK: JVD not raised; masses not palpable. HEART: First and second heart sounds are normal; no edema. LUNGS: Respiratory rate normal; clear to auscultation. ABDOMEN: Soft, nontender, liver spleen not palpable, no masses palpable. PSYCH: Alert and oriented x3; mood and affect hyperactivel. NEUROLOGICAL: Cranial nerves grossly intact; no facial asymmetry, power and sensation grossly intact. LYMPHATICS: No lymph nodes palpable in the axilla and neck INVESTIGATIONS, reviewed in the clinical context: Urine drug screen positive for tricyclic antidepressants and marijuana Assessment: -Recreational marijuana use -Chronic nicotine dependence patient cigarette smoker -Bipolar disorder with manic episode Plan: Patient advised against use of smoking and marijuana. Did have a nicotine patch. Patient should follow with his family doctor. Thank you Dr. Cruz Past Medical History Past Medical History: No Reported History Additional Past Medical History / Comment(s): he thinks that he may of have a seizure at that time per history-- Pt states that he has never been dx with seizure history. History of Any Multi-Drug Resistant Organisms: None Reported Past Surgical History: Orthopedic Surgery, Tonsillectomy Past Anesthesia/Blood Transfusion Reactions: No Reported Reaction Past Psychological History: Anxiety, Bipolar, Depression, Schizophrenia Smoking Status: Current every day smoker Past Alcohol Use History: None Reported Past Drug Use History: None Reported - Past Family History Mother History Unknown: Yes Additional Family Medical History / Comment(s): Mother is alive with history of diabetes, hypertension, stroke, chronic back problems. Father Additional Family Medical History / Comment(s): Patient states he does not know his father but does know he has Hodgkin's lymphoma. Brother(s) Additional Family Medical History / Comment(s): Patient has 7/2 brothers and does not know any medical problems. Patient has 1 half-sister and he does not know her medical problems. Medications and Allergies Home Medications Medication Instructions Recorded Confirmed Type ARIPiprazole [Abilify Maintena] 300 mg IM Q28D 04/08/19 04/08/19 History QUEtiapine [SEROquel] 25 - 50 mg PO DAILY PRN 04/08/19 04/08/19 History Allergies Allergy/AdvReac Type Severity Reaction Status Date / Time Cantaloupe Allergy Rash/Hives Uncoded 04/08/19 16:53 Physical Exam Vitals: Vital Signs Temp Pulse Pulse Resp BP BP Pulse Ox 04/09/19 05:41 144 H 18 147/89 04/08/19 18:42 98.4 F 107 H 20 122/77 97 04/08/19 17:47 98.3 F 69 18 165/85 98 04/08/19 17:36 98.3 F 69 18 165/85 98 04/08/19 15:27 98.3 F 69 18 165/85 98 Intake and Output 04/08/19 04/09/19 04/09/19 22:59 06:59 14:59 Other: Weight 64.8 kg Results Labs: Abnormal Lab Results - Last 24 Hours (Table) 04/08/19 Range/Units 15:43 U Tricyclic Antidepress Detected H (NotDetected) U Marijuana (THC) Screen Detected H (NotDetected)
[2019-04-09] MEDS: QUEtiapine 100 MG TAB PO SCH (21:42)
[2019-04-10] MEDS: NICOTINE 7MG/24HR PATCH TRANSDERM SCH ×2 (08:25→09:01)
[2019-04-10] MEDS: LITHIUM CARBONATE 150 MG CAP PO SCH ×2 (08:25→21:16)
[2019-04-10] MEDS: ACETAMINOPHEN TAB 325 MG TAB PO PRN (11:54)
--- NOTE | 2019-04-10 13:04 | PN ---
PROGRESS NOTE DATE OF SERVICE: 04/10/2019 CHIEF COMPLAINT: The patient was agitated. He was exhibiting bizarre behavior. He was distressed over family issues and had agitation. He was admitted on an involuntary status. INTERVAL HISTORY: The patient continues to struggle. Last evening he was noted to be quite disorganized in his thoughts and function. He had episodes of anger. He made statements that were nonsensical such as "I have 7 times". He was noted to be intrusive. He was coming to the nursing station with various demands. He was making threatening statements towards staff in regard to what actions he might take. He did not make any specific statements in that regard. Last evening at 7:15 in the evening, he received Ativan 1 mg due to escalating anger and being argumentative. It was documented that he slept 6 hours last night. Today he has been up. He wanders the unit. He has been attending groups. He is noted to be intrusive and disorganized in his thoughts. When I saw the patient, he was wandering about the unit. He did not seem to be interacting with others. He made a number of statements that was hard to follow his train of thought. He declined getting blood work drawn. He has been compliant with his medications. He reports no problems or side effects with his medications. MENTAL STATUS: Patient was quite restless. He talked quite a bit, though it was difficult to follow his train of thought. He made tangential comments. He was not able to provide much clear history about his coming to the hospital. He had an intense angry affect. His mood was depressed. He was significantly distressed. He made unusual statements that suggested underlying thought disorder. He made a comment to me several times about dying different times when he was in the hospital during his previous admission recently at [facility]. On cognitive exam, he was oriented to his immediate circumstances. He gave some accurate history. He did make an effort to answer formal cognitive questions. ASSESSMENT: I will continue the current diagnosis and treatment plan. We will continue to engage the patient in individual and group therapeutic activities. I will encourage the patient to consider an increase in his Seroquel though I deferred presenting it to him during the initial interview due to his disorganized thoughts. I would look at increasing his Seroquel to possibly b.i.d. dosing. At this point, he is subtherapeutic in Seroquel in regards to an indication for psychosis at 100 mg a day. The indicated dose would be 400 to 600 mg a day. I will continue lithium 450 mg twice a day. We would likely need to get a lithium level drawn on Saturday. Lab work on 03/29 included a CBC and comprehensive profile that was unremarkable. Creatinine 0.7. TSH 1.0. Urinalysis is unremarkable. We will continue to focus on stabilization and discharge planning. MMODL / IJN: [id number] /
[2019-04-10] MEDS: QUEtiapine 100 MG TAB PO SCH (21:17)
[2019-04-10] MEDS: LORazepam 1 MG TAB PO PRN (21:18)
[2019-04-11] MEDS: ACETAMINOPHEN TAB 325 MG TAB PO PRN ×2 (03:49→12:07)
[2019-04-11] MEDS: LORazepam 1 MG TAB PO PRN (05:16)
[2019-04-11] MEDS: NICOTINE 7MG/24HR PATCH TRANSDERM SCH (08:25)
[2019-04-11] MEDS: LITHIUM CARBONATE 150 MG CAP PO SCH ×2 (08:25→20:15)
--- NOTE | 2019-04-11 10:45 | P.PN ---
Progress Note - Text Interval history: The patient is found in the hallway. He intrusively approaches me several times. He states that he would like me to take him off of lithium and off of Seroquel. He would like melatonin in their place. We discussed that both medications have a therapeutic purpose and they would not be discontinued at this time. He reports he slept through the night staff recorded he slept 2 hours. He indicates appetite is stable. He states he would like to be discharged immediately as he wants to go home and be with his family. Mental status exam: The patient is tired appearing but not lethargic. He is dressed in his own clothing he has a disheveled appearance. He is observed ambulating felt the hallway talking to anybody passing by. Thought process is disorganized at times he demonstrates a mildly irritable affect but affect is labile he will demonstrate smiling and laughter at times as well. During a portion of the session is focused on lyrics that he is having printed off. He is reporting no suicidal or homicidal thoughts. Insight and judgment are impaired. He demonstrates no involuntary or tardive movements. Plan: The patient will continue on his current psychotropic medication. He has been recently started on lithium and restarted on Seroquel. He already has Abilify maintena in place. We will allow the time to demonstrate efficacy. We will monitor him for safety and encourage participation in the milieu.
[2019-04-11] MEDS: QUEtiapine 100 MG TAB PO SCH (20:15)
[2019-04-12] MEDS: ACETAMINOPHEN TAB 325 MG TAB PO PRN ×2 (01:10→16:44)
[2019-04-12] MEDS: LORazepam 1 MG TAB PO PRN ×2 (01:12→18:35)
[2019-04-12] MEDS: HALOPERIDOL LACTATE 5 MG/ML 1 ML VIAL IM PRN (01:52)
[2019-04-12] MEDS: NICOTINE 7MG/24HR PATCH TRANSDERM SCH ×2 (07:38→16:46)
[2019-04-12] MEDS: LITHIUM CARBONATE 150 MG CAP PO SCH ×2 (07:39→20:57)
--- NOTE | 2019-04-12 10:29 | P.PN ---
Progress Note - Text Interval history: The patient's found in the hallway he intrusively approaches me several times. We met in a conference room. Staff report that he had a difficult evening last night he did receive an injection for agitated behavior. The indicated he slept 2 hours. The patient refutes that and states he slept throughout the night. He does acknowledge that he received an injection. He ventilates frustration that he is still in the hospital. We reviewed his psychotropic medication. He continues to ask to be taken off of lithium but he was informed we will continue this to see if that will have a stabilizing influence. He will be due for a level early this week. We discussed titrating the Seroquel further. Initially he was resistant and then eventually he was more agreeable. Mental status exam: The patient is alert he is dressed in his own clothing. Eye contact is appropriate. He is intrusive in conversation he is intrusive on the unit in observing him with others. He demonstrates a disorganized thought process. He demonstrates tangential thinking and loose associations. He lacks insight into his current symptoms. He is reporting no thoughts of harming himself or others. He demonstrated no verbal or physical aggressiveness during our session. He had inappropriate exaggerated laughter at times. He is endorsing no symptoms of psychosis but likely he has a delusional thought content. He demonstrates no involuntary repetitive movements. Plan: The patient will continue his current psychotropic medications. We will add a 50 mg Seroquel dose in the morning and increase the bedtime Seroquel to 200 mg. This may be a temporary maneuver but we are trying to stabilize his mood and psychotic symptoms which so far have been fairly refractory. Vital signs reviewed. He is encouraged to appropriate participate in the milieu. Vital signs reviewed.
[2019-04-12] MEDS: QUEtiapine 50 MG TAB PO SCH (10:30)
[2019-04-12] MEDS ORDERED: QUEtiapine 200 MG TAB PO SCH (21:00)
[2019-04-13] MEDS: ACETAMINOPHEN TAB 325 MG TAB PO PRN (01:18)
[2019-04-13] MEDS: BENZOCAINE 20 % GEL 15 GM TUBE MM PRN ×2 (01:18→20:05)
[2019-04-13] MEDS: LORazepam 1 MG TAB PO PRN ×3 (03:46→20:05)
[2019-04-13] MEDS: NICOTINE 7MG/24HR PATCH TRANSDERM SCH (08:50)
[2019-04-13] MEDS: LITHIUM CARBONATE 150 MG CAP PO SCH ×2 (08:51→20:05)
[2019-04-13] MEDS: QUEtiapine 50 MG TAB PO SCH (08:52)
--- NOTE | 2019-04-13 11:37 | P.PN ---
Progress Note - Text Progress Note Date: 04/13/19 Interval History: Patient was seen at the nurse's desk and was agreeable to speak to underwriter mortgage loan in the office. Patient continues to have a blank stare and acts bizarrely in front of underwriter mortgage loan. Patient is tangential and often times illogical. Patient has poor insight and poor judgment. He has been noted to an disruptive in groups and was also noted to be kicked out of a morning group due to throwing a pen at someone else. Patient continues to minimize symptoms and is preoccupied with discharge. Patient does appear somewhat calmer and denies any depressive symptoms or anxiety at this time. He states that he slept to the night. He also claimed that his mother visited him over the weekend. At this time patient denies any suicidal or homical ideations, intent or plan. Patient denies any auditory, visual hallucinations. Patient denies any side effects from the medications and has been compliant with meds. Mental Status Exam: General Appearance: Patient appears to be stated age is alert, directable, and appears to be bizarre. Patient has improving hygiene and poor grooming and a bl ank stare. Behavior: Patient is seated without any agitated behavior however appears to be intrusive at times. Speech: Patient's speech is fluent and nonpressured. Mood/Affect: Patient reports their mood is happy, affect is incongruent and constricted. Suicidality/Homicidality: Patient denies having any suicidal or homicidal ideation intent or plan. Perceptions: Patient denies any auditory or visual hallucinations. Though content/process: Patient is less disorganized thought process is tangential and illogical. Memory and concentration: AOX3, grossly intact for the purposes of this session. Judgment and insight: Poor/superficial Assessment Bipolar disorder, currently in manic episode severe without psychotic features Cannabis use disorder Nicotine dependence Plan: -Patient continues to meet criteria for inpatient psychiatric admission for symptom stabilization and safety. Patient has signed adult voluntary form and medication consent and was placed in patient's chart. -Medications: Will continue with lithium 450 mg twice a day for mood stabilization. We'll check level tomorrow prior to dosing in the a.m. Seroquel will be increased to 50 mg +250 mg for mood stabilization/psychosis. -Patient is already on and received Abilify Maintenna 400 mg every monthly last given on 04/01/2019. Will be due for her next injection on 04/29/2019 -When necessary Haldol and Ativan for agitation/aggression. -NRT - [nicotine patch] -SW on board for discharge planning. Patient's case has been filed for court by [facility] who are attempting to get treatment in order as patient is currently on deferral.
[2019-04-13] MEDS: QUEtiapine 100 MG TAB PO SCH (20:05)
[2019-04-14] MEDS: ACETAMINOPHEN TAB 325 MG TAB PO PRN (00:35)
[2019-04-14] MEDS: BENZOCAINE 20 % GEL 15 GM TUBE MM PRN (03:08)
[2019-04-14] MEDS: NICOTINE 7MG/24HR PATCH TRANSDERM SCH (08:02)
[2019-04-14] MEDS: LITHIUM CARBONATE 150 MG CAP PO SCH ×2 (08:02→21:14)
[2019-04-14] MEDS: QUEtiapine 50 MG TAB PO SCH (08:02)
--- NOTE | 2019-04-14 10:09 | P.PN ---
Progress Note - Text Progress Note Date: 04/14/19 Interval History: Patient was seen at the nurse's desk and was agreeable to speak to internal communications writer in the office. Patient is somewhat directable however continues to have a blank stare and acts bizarrely, asking inappropriate questions to internal communications writer at times. Patient is tangential and often times illogical. Patient has poor insight and poor judgment. Patient continues to minimize symptoms and is preoccupied with discharge and his medications. Patient states that he is going to court today however does not know why as he claims that "I'm taking my meds, what are they want from me". Patient is somewhat grandiose claiming that he wants to get his GED and go to University so he can "change the world". Patient does appear somewhat calmer and denies any depressive symptoms or anxiety at this time. He states that he slept throughout the night. He states that he does not want his mother is his guardian any longer. At this time patient denies any suicidal or homical ideations, intent or plan. Patient denies any auditory, visual hallucinations. Patient denies any side effects from the medications and has been compliant with meds. Mental Status Exam: General Appearance: Patient appears to be stated age is alert, directable, and appears to be bizarre. Patient has improving hygiene and poor grooming and a blank stare. Behavior: Patient is seated without any agitated behavior however appears to be intrusive at times. Speech: Patient's speech is fluent and nonpressured. Mood/Affect: Patient reports their mood is "awesome", affect is incongruent and constricted. Suicidality/Homicidality: Patient denies having any suicidal or homicidal ideation intent or plan. Perceptions: Patient denies any auditory or visual hallucinations. Though content/process: Patient is less disorganized thought process is tangential and illogical. Memory and concentration: AOX3, grossly intact for the purposes of this session. Judgment and insight: Poor/superficial Assessment Bipolar disorder type I, currently in manic episode severe without psychotic features Cannabis use disorder Nicotine dependence Plan: -Patient continues to meet criteria for inpatient psychiatric admission for symptom stabilization and safety. Patient has signed adult voluntary form and medication consent and was placed in patient's chart. -Medications: Will continue with lithium 450 mg twice a day for mood stabilization. Patient declined lithium level this morning. Seroquel will be increased to 100 mg +250 mg for mood stabilization/psychosis. -Patient is already on and received Abilify Maintenna 400 mg every monthly last given on 04/01/2019. Will be due for her next injection on 04/29/2019 -When necessary Haldol and Ativan for agitation/aggression. -NRT - nicotine patch - on board for discharge planning. Patient's case has been filed for court by [employer] [facility] who are attempting to get treatment in order as patient is currently on deferral, court date set for today.
[2019-04-14] MEDS: LORazepam 1 MG TAB PO PRN (21:14)
[2019-04-14] MEDS: QUEtiapine 100 MG TAB PO SCH (21:14)
[2019-04-15] MEDS: LORazepam 2 MG/ML INJ IM PRN ×2 (02:50→12:39)
[2019-04-15] MEDS: HALOPERIDOL LACTATE 5 MG/ML 1 ML VIAL IM PRN ×3 (02:50→23:00)
[2019-04-15] MEDS ORDERED: diphenhydrAMINE 50 MG/ML 1 ML VIAL IM STA (03:23)
[2019-04-15] MEDS: BENZOCAINE 20 % GEL 15 GM TUBE MM PRN (05:50)
[2019-04-15] MEDS: NICOTINE 7MG/24HR PATCH TRANSDERM SCH (08:48)
[2019-04-15] MEDS: LITHIUM CARBONATE 150 MG CAP PO SCH ×2 (08:49→20:54)
[2019-04-15] MEDS ORDERED: QUEtiapine 100 MG TAB PO SCH ×2 (09:00→21:00)
--- NOTE | 2019-04-15 13:17 | P.PN ---
Progress Note - Text Progress Note Date: 04/15/19 Interval History: Patient was seen at the nurse's desk and was agreeable to speak to fiction writer in the office. Patient was noted by overnight staff to be in the bathroom with his pants down and another female in the room with him. He stated that she was not doing anything sexual to him and that he was only using the toilet. Patient was initially directable however continues to have a blank stare and acts bizarrely, asking inappropriate questions to fiction writer during the interview. Patient contin ues to be inappropriate and illogical in his answers and spoke of multiple things that he wants to do when he leaves the hospital. Patient did say threatening words towards fiction writer which was unprovoked. Patient has poor insight and poor judgment. Patient continues to minimize symptoms and is preoccupied with discharge. Patient stated that he did consent to treatment and claims "you can do whatever you want me, they're happy?". Patient is grandiose and appears to continue to be hyperverbal. Patient does appear somewhat calmer and denies any depressive symptoms or anxiety at this time. He states that he slept throughout the night and multiple staff members informed fiction writer that patient did not sleep at all. At this time patient denies any suicidal or homical ideations, intent or plan. Patient denies any auditory, visual hallucinations. Patient denies any side effects from the medications and has been compliant with meds. Prior to ending the interview with the patient, patient refused to leave the room and started singing lyrics from a song written on paper. Staff was called to escort the patient out however patient continued to decline to leave the office and became agitated when he was directed to leave. Patient required a PRN medication afterwards. Mental Status Exam: General Appearance: Patient appears to be stated age is alert, directable, and appears to be bizarre. Patient has improving hygiene and poor grooming and a blank stare. Behavior: Patient is seated without any agitated behavior however appears to be intrusive at times and inappropriate. Speech: Patient's speech is fluent and nonpressured. Mood/Affect: Patient reports their mood is "fine", affect is incongruent and constricted. Suicidality/Homicidality: Patient denies having any suicidal or homicidal ideation intent or plan. Perceptions: Patient denies any auditory or visual hallucinations. Though content/process: Patient is disorganized thought process is tangential and illogical and is inappropriate. Memory and concentration: AOX3, grossly intact for the purposes of this session. Judgment and insight: Poor/superficial Assessment Bipolar disorder type I, currently in manic episode severe without psychotic features Cannabis use disorder Nicotine dependence Plan: -Patient continues to meet criteria for inpatient psychiatric admission for symptom stabilization and safety. Patient has signed adult voluntary form and medication consent and was placed in patient's chart. Patient was court ordered yesterday as he agreed to treatment after the demand for hearing. -Medications: Will continue with lithium 450 mg twice a day for mood stabilization. Patient declined lithium level, will retry to obtain this once patient improves clinically. Seroquel will be decreased down to 50 mg daily at bedtime and further will be titrated off as patient does not appear to be responding to it. -Steward/Stewardess Room spoke with patient's mother/guardian on the phone Jyoti Aguayo [phone] and explained patient's clinical course and medication/treatment options. It was agreed upon that patient was not doing well on Abilify Maintenna and that it should be discontinued at this time. Discussed the other options available including Haldol and Prolixin which are available in long- acting injections and mother stated that she would prefer patient be put on Prolixin. Started Prolixin 2 mg twice a day by mouth for psychosis/aggression. If patient refuses or is seen to be cheeking medication, then by court order should receive Haldol IM. -Patient received Abilify Maintenna 400 mg every monthly last given on 04/01/2019. We'll discontinue this medication at this time as it is not helping patient symptoms. -When necessary Haldol and Ativan for agitation/aggression. Haldol IM if patient is seen to be cheeking medications or refusing Prolixin by mouth. -NRT - nicotine patch -SW on board for discharge planning. Patient agreed to court ordered treatment yesterday after the demand for hearing.
[2019-04-15] MEDS: LORazepam 1 MG TAB PO PRN ×2 (15:27→20:56)
[2019-04-15] MEDS: QUEtiapine 50 MG TAB PO SCH (20:54)
[2019-04-16] MEDS: NICOTINE 7MG/24HR PATCH TRANSDERM SCH (08:57)
[2019-04-16] MEDS: LITHIUM CARBONATE 150 MG CAP PO SCH ×2 (08:57→21:30)
[2019-04-16] MEDS ORDERED: HALOPERIDOL LACTATE 5 MG/ML 1 ML VIAL IM PRN (09:42)
--- NOTE | 2019-04-16 09:53 | P.PN ---
Progress Note - Text Progress Note Date: 04/16/19 Interval History: Patient was seen during [facility] activity group and was agreeable to speak to assembly instructions writer in the [facility] area. Patient was noted by overnight staff to be agitated and hit the meter in his room with his hand and also kicking the door at night. Patient received Haldol and Ativan for agitation and slept thereafter. Patient appears to be more directable today and more appropriate during conversation however at times is tangential and illogical. Patient continues to try and nego tiate his medications and his treatment and is preoccupied with discharge. Patient has mildly improved insight and judgment. Patient is less threatening today and less agitated. He continues to show an improvement in his sedation level and also his speech becoming less hyperverbal and less intrusive. Patient denies any depressive symptoms or anxiety at this time. He states that he slept throughout the night and minimized the events that happened last night where he felt agitated. At this time patient denies any suicidal or homical ideations, intent or plan. Patient denies any auditory, visual hallucinations. Patient denies any side effects from the medications and has been compliant with meds. Mental Status Exam: General Appearance: Patient appears to be stated age is more alert and directable today. Patient has improving hygiene and poor grooming Behavior: Patient is seated without any agitated behavior. Less inappropriate comments. Speech: Patient's speech is fluent and nonpressured. Mood/Affect: Patient reports their mood is "ok", affect is incongruent and constricted. Suicidality/Homicidality: Patient denies having any suicidal or homicidal ideation intent or plan. Perceptions: Patient denies any auditory or visual hallucinations. Though content/process: Patient is less disorganized in his thought process is tangential and illogical at times Memory and concentration: AOX3, grossly intact for the purposes of this session. Judgment and insight: Poor/superficial, improving moderately. Assessment Bipolar disorder type I, currently in manic episode severe without psychotic features Cannabis use disorder Nicotine dependence Plan: -Patient continues to meet criteria for inpatient psychiatric admission for symptom stabilization and safety. Patient has signed adult voluntary form and medication consent and was placed in patient's chart. Patient was court ordered on 04/14/2019 as he agreed to treatment after the demand for hearing. -Medications: Will increase Prolixin to 2.5 mg twice a day for psychosis/mood stabilization. Plan will be to give long-acting injection prior to discharge. Will continue with lithium 450 mg twice a day for mood stabilization. Patient declined lithium level, will retry to obtain tomorrow morning. Seroquel to be continued at 50 mg daily at bedtime and further will be titrated off if possible. -When necessary Haldol and Ativan for agitation/aggression. Haldol IM was increased to 5 mg every 6 hours PRN if patient is seen to be cheeking medications or refusing Prolixin by mouth. -NRT - nicotine patch -SW on board for discharge planning. Patient is court ordered at this time.
[2019-04-16] MEDS: MELATONIN 3 MG TABLET PO SCH (21:30)
[2019-04-16] MEDS: QUEtiapine 50 MG TAB PO SCH (21:31)
[2019-04-17] MEDS: LORazepam 1 MG TAB PO PRN (11:29)
[2019-04-17] MEDS: NICOTINE 7MG/24HR PATCH TRANSDERM SCH (11:29)
[2019-04-17] MEDS: LITHIUM CARBONATE 150 MG CAP PO SCH ×2 (11:42→23:12)
--- NOTE | 2019-04-17 13:47 | P.PN ---
Progress Note - Text Progress Note Date: 04/17/19 Interval History: Patient was seen today after lunch and was agreeable to speak to marketing underwriter. Patient was noted by overnight staff to have slept through the majority of the night however was caught with some sort of silver ring object in his possession which was taken from them. Patient did not receive any Haldol and Ativan injections the past 24 hours. Patient appears to be more directable today and is showing some mild improvement with regards to his tangential and illogical thinking. Patient did ask some inappropriate questions today to the marketing underwriter and tried to pose different scenarios and demands to the marketing underwriter about his medications. Patient continues to try and negotiate his medications. Patient asked several times about his treatment and is preoccupied with discharge. Patient has mildly improved insight and judgment. Patient is less threatening today and more directable. He continues to show an improvement in his sedation level. Patient denies any depressive symptoms or anxiety at this time. He states that he slept throughout the night. At this time patient denies any suicidal or homical ideations, intent or plan. Patient denies any auditory, visual hallucinations. Patient denies any side effects from the medications and has been compliant with meds. Mental Status Exam: General Appearance: Patient appears to be stated age is more alert and directable today. Patient has improving hygiene and poor grooming Behavior: Patient is seated without any agitated behavior. Less inappropriate comments. Speech: Patient's speech is fluent and nonpressured. Mood/Affect: Patient reports their mood is "fine", affect is incongruent and constricted. Suicidality/Homicidality: Patient denies having any suicidal or homicidal ideation intent or plan. Perceptions: Patient denies any auditory or visual hallucinations. Though content/process: Patient is less disorganized in his thought process is tangential and illogical at times Memory and concentration: AOX3, grossly intact for the purposes of this session. Judgment and insight: Poor/superficial, improving mildly Assessment Bipolar disorder type I, currently in manic episode severe without psychotic features Cannabis use disorder Nicotine dependence Plan: -Patient continues to meet criteria for inpatient psychiatric admission for symptom stabilization and safety. Patient has signed adult voluntary form and medication consent and was placed in patient's chart. Patient was court ordered on 04/14/2019 as he agreed to treatment after the demand for hearing. -Medications: Will increase Prolixin to 3 mg twice a day for psychosis/mood stabilization. Plan will be to give long-acting injection prior to discharge. Will continue with lithium 450 mg twice a day for mood stabilization. [place] level drawn this morning 0.6. Seroquel to be to be discontinued. We'll continue with melatonin for sleep. -When necessary Haldol and Ativan for agitation/aggression. Haldol IM was increased to 5 mg every 6 hours PRN if patient is seen to be cheeking medications or refusing Prolixin by mouth. -NRT - nicotine patch -I spoke with patient's mother/guardian Jyoti over the phone. She stated her concerns with patient's medications and questions and concerns were addressed. Informed her of patient's gradual improvement over time and planning for future treatment. -ROCK on board for discharge planning. Patient is court ordered at this time. Likely discharge next week.
[2019-04-17] MEDS: LORazepam 1 MG TAB PO SCH ×2 (14:22→23:12)
[2019-04-17] MEDS: BENZOCAINE 20 % GEL 15 GM TUBE MM PRN (14:23)
[2019-04-17] MEDS: ACETAMINOPHEN TAB 325 MG TAB PO PRN (17:43)
[2019-04-17] MEDS: MELATONIN 3 MG TABLET PO SCH (23:12)
[2019-04-18] MEDS: NICOTINE 7MG/24HR PATCH TRANSDERM SCH (09:03)
[2019-04-18] MEDS: LORazepam 1 MG TAB PO SCH ×2 (09:05→21:07)
[2019-04-18] MEDS: LITHIUM CARBONATE 150 MG CAP PO SCH ×2 (09:05→21:06)
[2019-04-18] MEDS: MELATONIN 3 MG TABLET PO SCH (21:07)
--- NOTE | 2019-04-18 21:11 | P.PN ---
Progress Note - Text Progress Note Date: 04/18/19 IDENTIFICATION DATA: 24-year-old male admitted to [facility] with symptoms of addi and aggression INTERVAL HISTORY: Patient was seen today. He reports feeling better and says his medications are helping him to stay stable and focused. He says his thoughts are much organized and is able to think well. He says his goals are to get a job aunts boyfriends company and also to work in the golf course. He reports good sleep and appetite. MENTAL STATUS EXAMINATION: 24-year old male appears stated age in fair grooming and hygine. Is alert and oriented 4. Mood is reported as good and affect is appropriate. Speech and thought processes are linear and goal directed. thought content is negative for suicidal or homicidal ideation. Denies auditory and visual hallucinations. Denies paranoid ideations. insight and judgment are improving Assessment Bipolar disorder type I, currently in manic episode severe without psychotic features Cannabis use disorder Nicotine dependence Plan continue Prolixin to 3 mg twice a day for psychosis/mood stabilization. Patient to receive long-acting injection prior to discharge. Will continue with lithium 450 mg twice a day for mood stabilization. [place] level is 0.6. melatonin for sleep.
[2019-04-19] MEDS: LORazepam 1 MG TAB PO SCH ×2 (09:05→21:13)
[2019-04-19] MEDS: LITHIUM CARBONATE 150 MG CAP PO SCH ×2 (09:05→21:13)
[2019-04-19] MEDS: NICOTINE 14MG/24HR PATCH TRANSDERM SCH (09:55)
[2019-04-19] MEDS: ACETAMINOPHEN TAB 325 MG TAB PO PRN (09:59)
[2019-04-19] MEDS: NICOTINE 7MG/24HR PATCH TRANSDERM SCH (10:01)
--- NOTE | 2019-04-19 15:15 | P.PN ---
Progress Note - Text Progress Note Date: 04/19/19 IDENTIFICATION DATA: 24-year-old male admitted to [facility] with symptoms of addi and aggression INTERVAL HISTORY: Patient was seen today. He reports feeling better denies symptoms of depression, anxiety. He reports stable moods and is happy with his progress. Tolerates medi cations well with no side effects. No symptoms of psychosis. MENTAL STATUS EXAMINATION: 24-year old male appears stated age in fair grooming and hygine. Is alert and oriented 4. Mood is reported as better and affect is appropriate. Speech and thought processes are linear and goal directed. thought content is negative for suicidal or homicidal ideation. Denies auditory and visual hallucinations. Denies paranoid ideations. insight and judgment are improving Assessment Bipolar disorder type I, currently in manic episode severe without psychotic features Cannabis use disorder Nicotine dependence Plan continue Prolixin to 3 mg twice a day for psychosis/mood stabilization. continue with lithium 450 mg twice a day for mood stabilization. [place] level is 0.6. melatonin for sleep. Patient to receive long-acting injection prior to discharge
[2019-04-19] MEDS: MELATONIN 3 MG TABLET PO SCH (21:13)
[2019-04-20] MEDS: BENZOCAINE 20 % GEL 15 GM TUBE MM PRN (05:13)
[2019-04-20 07:04] VITALS: RESP 16
[2019-04-20] MEDS: LORazepam 1 MG TAB PO SCH ×2 (08:46→21:22)
[2019-04-20] MEDS: NICOTINE 14MG/24HR PATCH TRANSDERM SCH ×2 (08:46→12:28)
[2019-04-20] MEDS: LITHIUM CARBONATE 150 MG CAP PO SCH ×2 (08:46→21:22)
--- NOTE | 2019-04-20 09:53 | P.PN ---
Progress Note - Text Progress Note Date: 04/20/19 Interval History: Patient was seen today after breakfast and was agreeable to speak to screenplay writer. Patient appeared to be participating in goal setting this morning appropriately. Patient was not noted to have any overnight events. Patient appears to be more directable today and cooperative with the interview. Patient apologized for his behaviors earlier on in the hospitalization and thanked screenplay writer for helping him. Patient was more directable today and appeared to have improved insight and j udgment. Patient stated that she would like to be discharged soon so he can spend time with his fianc and go to [place]. He states that he is attending groups and finding them helpful. He continues to show an improvement in his sedation level and appears to be more awake today. Patient denies any depressive symptoms or anxiety at this time. He states that he slept throughout the night. At this time patient denies any suicidal or homical ideations, intent or plan. Patient denies any auditory, visual hallucinations. Patient denies any side effects from the medications and has been compliant with meds. Mental Status Exam: General Appearance: Patient appears to be stated age is more alert and directable today. Patient has improving hygiene and poor grooming Behavior: Patient is seated without any agitated behavior Speech: Patient's speech is fluent and nonpressured. Mood/Affect: Patient reports their mood is "good", affect is congruent and constricted. Suicidality/Homicidality: Patient denies having any suicidal or homicidal ideation intent or plan. Perceptions: Patient denies any auditory or visual hallucinations. Though content/process: Patient is less disorganized in his thought process is more goal oriented and logical. Memory and concentration: AOX3, grossly intact for the purposes of this session. Judgment and insight: improving mildly Assessment Bipolar disorder type I, currently in manic episode severe without psychotic features Cannabis use disorder Nicotine dependence Plan: -Patient continues to meet criteria for inpatient psychiatric admission for symptom stabilization and safety. Patient has signed adult voluntary form and medication consent and was placed in patient's chart. Patient was court ordered on 04/14/2019 as he agreed to treatment after the demand for hearing. -Medications: Will continue with Prolixin to 3 mg twice a day for psychosis/mood stabilization. Plan will be to give long-acting injection today. Will continue with lithium 450 mg twice a day for mood stabilization. [place] level drawn this morning 0.6. We'll continue with melatonin for sleep. -When necessary Haldol and Ativan for agitation/aggression. -NRT - nicotine patch -SW on board for discharge planning. Patient is court ordered at this time. Likely discharge tomorrow after receiving long-acting injection.
[2019-04-20] MEDS ORDERED: fluPHENAZine DECANOATE 25 MG/ML 5ML MDV IM ONE (13:00)
[2019-04-20] MEDS: MELATONIN 3 MG TABLET PO SCH (21:22)
[2019-04-21 00:59] VITALS: BMI 19.9
[2019-04-21] MEDS: ACETAMINOPHEN TAB 325 MG TAB PO PRN (02:41)
[2019-04-21 07:07] VITALS: BP 115/67; PULSE 83; TEMP 97.8
[2019-04-21] MEDS: NICOTINE 14MG/24HR PATCH TRANSDERM SCH (07:46)
[2019-04-21] MEDS: LORazepam 1 MG TAB PO SCH (07:47)
[2019-04-21] MEDS: LITHIUM CARBONATE 150 MG CAP PO SCH (07:47)
--- NOTE | 2019-04-21 09:18 | P.DS ---
Providers Date of admission: 04/08/19 17:21 Expected date of discharge: 04/21/19 Attending physician: Leif Cruz MD Consults: 04/08/19 17:47 Consult Physician Routine Consulting Provider: Reyes Ag Consult Reason/Comments: H&P for mental [facility] admission Do you want consulting provider notified?: Yes, Notify in am Primary care physician: Mauro Beaver - Discharge Diagnosis(es) (1) Bipolar disorder with severe addi Current Visit: Yes Status: Acute Priority: High (2) Cannabis abuse Current Visit: Yes Status: Acute Priority: Medium (3) Nicotine dependence Current Visit: Yes Status: Acute Priority: Low Hospital Course: Admission HPI: Patient is a 24-year-old male is currently and lives with his and one child his son in a trailer. Patient presented to the hospital after his mother called EMS due to concerns that patient was exhibiting manic behavior at his house. Patient was evaluated in the ER yesterday and appeared to be manic and agitated and exhibiting bizarre behaviors. On admission to the unit patient was aggressive and intrusive and trying to open up to worse from other patient's rooms and required when necessary medications. Patient was escorted to the quiet room however patient hit his nose the door and suffered a superficial small laceration which was attended to by the nurses and the doctor. Today patient was seen near the nurse's desk being intrusive and inappropriate loud however was directable and agreeable to be interviewed in the conference room. Patient appears to have a blank stare and was inappropriate with speech writer during the conversation. Patient has poor insight and poor judgment and poor impulse control. Patient was also tangential and illogical in his responses. He states that his family and his mother have a problem with him and that he was "blowing up" on his mother which is why he is in the hospital. Patient spoke about wanting to leave to take care of his kid and asked multiple options to speech writer about himself. Patient also stated that he 7 times and states that this is why he went to [facility] and that he also on the ambulance ride coming to [place] in hospital. Patient states that he stayed 10 days at [facility] and received his Abilify IM injection. When asked about other medications that helped him patient states that only Seroquel helps them when asked about lithium and Depakote, patient stated that Depakote gets me "hard on my chest". Patient denies any suicidal or homicidal ideations intent or plan. At this time patient denies any auditory or visual hallucinations. Patient admits to using marijuana however does not specify the quantity. Patient claims that he is a every day smoker. He denies any other drugs or alcohol use. Hospital course: Upon admission to the unit patient was initially bizarre, aggressive, uncooperative. Patient was however directable and agreeable to commence treatment. patient initially had several behavioral problems and required PRN medications for agitation and aggression. Patient also required the seclusion/quiet room for being difficult to redirect and aggressive towards others. Patient was compliant with the medications and denied any side effects throughout hospital course. Patient had received his Abilify Maintenna injection several days prior to coming into the hospital and patient was not able to be stabilized on Seroquel alone. Patient did not want to be started on Depakote due to side effects and inability to tolerate the medication and opted to start on lithium 450 mg twice a day as a mood stabilizer. patient was also started on Prolixin by mouth and titrated up to a dose of 3 mg twice a day for psychosis/mood stabilization which patient tolerated well and improved his symptoms. Patient received Prolixin-Decanoate 25 mg IM on 04/20/2019 and tolerated it well. patient was also started on Ativan 1 mg twice a day for anxiety/agitation. patient had a demand for hearing which was started by [employer] and patient was given a treatment order by the court on 04/14/2019. Patient spoke of his stressors and engaged in therapy both group and individual. Patient was also seen by medical team for history and physical exam. during hospitalization, lithium level was drawn and found to be 0.6. Throughout the course of the hospitalization patient gradually improved with regards to mood, behaviors, anxiety, sleep and became future oriented with improved insight and judgment. On the day of discharge patient denied any suicidal or homicidal ideations intent or plan denied any auditory or visual hallucinations. Patient endorsed wanting to live for his family. The patient denied any access to guns or weapons. Patient denied any paranoia and did not endorse any delusions. Patient does have a significant history of substance abuse and was counseled on abstaining from all substances including alcohol and marijuana. Patient was also counseled on the medications and need for regular compliance and was encouraged to follow-up with their outpatient appointment for mental health and also for primary care. Prior to discharge a family meeting will be arranged by high school social science teacher to answer any questions and ensure safety upon discharge. speech writer did call and spoke with over the phone patient's guardian/mother Jyoti, to give update on patient's condition and answer any questions regarding medications and treatment. Mental status exam: General Appearance: Patient appears to be stated age is alert, pleasant, and cooperative. Patient is in no acute distress and has fair hygiene and grooming Behavior: Patient is calmly seated without any agitated behavior. Speech: Patient's speech is fluent and nonpressured. Mood/Affect: Patient reports their mood is "better", affect is congruent and euthymic. Suicidality/Homicidality: Patient denies having any suicidal or homicidal ideation intent or plan. Perceptions: Patient denies any auditory or visual hallucinations. Though content/process: There is no evidence of any delusional thought content and thought process is linear and goal-directed. Memory and concentration: AOX3, grossly intact for the purposes of this session. Can spell "WORLD" backwards correctly. Judgment and insight: fair, improved Impression: bipolar disorder type I, severe manic episode without psychotic features. Cannabis use disorder Nicotine dependence Plan: -Continue with discharge today as patient has improved and stabilized psychiatrically and is not currently an imminent threat to himself and/or others. -Continue medications: Prolixin 3 mg will be decreased to daily at bedtime dosing for psychosis and will be continued for 5 days. Patient received Prolixin D 25 mgIM injection on04/20/2019 and tolerated it well. Patient will be due for next long-acting injection dose in 3 weeks. Continue with lithium 450 mg twice a day for mood stabilization. we'll continue Ativan 1 mg daily when necessary for anxiety. -Patient was counseled on the need for medication compliance and appropriate follow-up at mental health and also primary care for medical issues. Patient verbalized understanding and agreed. -patient is court ordered for treatment starting from 04/14/2019. -Social work to arrange for and conduct family meeting to ensure safety upon discharge and answer any questions/concerns. Social work also to arrange for patients follow up appointments with [facility] along with follow up with primary care provider. -Patient counseled on abstaining from recreational drugs and marijuana and alcohol. Was informed/educated on the adverse effects on their physical and mental health. patient verbally understood and agreed. -Patient was instructed to return to the hospital or seek immediate medical care if their psychiatric or medical systems do worsen or reoccur. Patient Condition at Discharge: Fair Plan - Discharge Summary Discharge Rx Participant: No New Discharge Prescriptions: New LORazepam [Ativan] 1 mg PO DAILY PRN #14 tab PRN Reason: Anxiety Nicotine 14Mg/24Hr Patch [Habitrol] 1 patch TRANSDERM DAILY 14 Days patch [place] Carbonate 450 mg PO BID 28 Days cap Melatonin 6 mg PO HS 28 Days tablet Benzocaine 20 % Gel [Orajel] 0.5 gm MM Q6HR PRN #2 tube PRN Reason: right back mouth pain fluPHENAZine [Prolixin] 3 mg PO HS 5 Days tab Discontinued QUEtiapine [SEROquel] 25 - 50 mg PO DAILY PRN PRN Reason: MOOD ARIPiprazole [Abilify Maintena] 300 mg IM Q28D Discharge Medication List Benzocaine 20 % Gel [Orajel] 0.5 gm MM Q6HR PRN #2 tube 04/21/19 [Rx] LORazepam [Ativan] 1 mg PO DAILY PRN #14 tab 04/21/19 [Rx] [place] Carbonate 450 mg PO BID 28 Days cap 04/21/19 [Rx] Melatonin 6 mg PO HS 28 Days tablet 04/21/19 [Rx] Nicotine 14Mg/24Hr Patch [Habitrol] 1 patch TRANSDERM DAILY 14 Days patch 04/21/19 [Rx] fluPHENAZine [Prolixin] 3 mg PO HS 5 Days tab 04/21/19 [Rx] Follow up Appointment(s)/Referral(s): Mauro Beaver MD [Primary Care Provider] - 1-2 days Activity/Diet/Wound Care/Special Instructions: Activity and diet as tolerated. No guns or weapons in the home. Refrain from A lcohol and street drugs not prescribed by your physician/s. Take all medications as prescribed, and attend your scheduled follow up appointments for psychiatric after care. If in need of medication refills, please to your primary care physician, or your out patient psychiatric provider. If in crisis please call , or go the nearest ER for an evaluation. Discharge Disposition: HOME SELF-CARE
[2019-04-21 11:01] LABS: Appearance,Urine Clear (Clear); Bilirubin,Urine Negative (Negative); Blood,Urine Negative (Negative); Color,Urine Colorless; Glucose,Urine (UA) Negative (Negative); Ketones,Urine Negative (Negative); Leukocyte Esterase,Urine Negative (Negative); Nitrite,Urine Negative (Negative); Protein,Urine Negative (Negative); Specific Gravity,Urine 1.002 (1.001-1.035); Urobilinogen,Urine <2.0 mg/dL (<2.0)
== END 2019-04-21 12:14 | disposition home or self-care (01) | DRG 885 ==
LOC: EC 15:14 → 3MHU 17:21
PROVIDERS: ADMIT Psychiatry & Neurology Psychiatry; ATTEND Psychiatry & Neurology Psychiatry
DX: F30.10 Manic episode without psychotic symptoms, unspecified (principal); F17.210 Nicotine dependence, cigarettes, uncomplicated; F41.9 Anxiety disorder, unspecified; Z80.7 Family history of other malignant neoplasms of lymphoid, hematopoietic and related tissues; Z82.3 Family history of stroke; Z82.49 Family history of ischemic heart disease and other diseases of the circulatory system; Z83.3 Family history of diabetes mellitus; Z91.5 Personal history of self-harm; Z91.018 Allergy to other foods; F12.10 Cannabis abuse, uncomplicated; S01.21XA Laceration without foreign body of nose, initial encounter; W22.01XA Walked into wall, initial encounter
CPT/HCPCS: 80178; 80306; 81003; 82075; 93005; 96372; 99285

== ENCOUNTER 2019-06-08 12:08 | Inpatient (IN) | payer MEDICAID, OTHER ==
--- NOTE | 2019-06-08 12:44 | ED ---
General Adult HPI - General Chief complaint: Psychiatric Symptoms Stated complaint: Mental health Time Seen by Provider: 06/08/19 12:30 Source: EMS, RN notes reviewed, old records reviewed Limitations: no limitations - History of Present Illness Initial comments: This is a 24-year-old male who presents emergency Department with a past medical history significant for bipolar. Patient states he is not taking his lithium for the last few days because he hasn't had it with him. Patient states he was petition by the court. Patient states he is not suicidal or homicidal. Patient states he just came here because his counselor advised him to and he isn't like to be checked out. Patient denies any physical complaints today patient denies hearing any voices patient denies seeing anything abnormal. Patient states she's not been any drugs or drinking alcohol. - Related Data Home Medications Medication Instructions Recorded Confirmed [place] Carbonate ER [Lithobid] 450 mg PO HS 06/08/19 06/08/19 fluPHENAZine DECANOATE [Prolixin 25 mg IM Q21D 06/08/19 06/08/19 Decanoate] Allergies Allergy/AdvReac Type Severity Reaction Status Date / Time [place] Allergy Rash/Hives Uncoded 04/08/19 16:53 Review of Systems ROS Statement: Those systems with pertinent positive or pertinent negative responses have been documented in the HPI. ROS Other: All systems not noted in ROS Statement are negative. Past Medical History Past Medical History: No Reported History Additional Past Medical History / Comment(s): he thinks that he may of have a seizure at that time per history-- Pt states that he has never been dx with seizure history. History of Any Multi-Drug Resistant Organisms: None Reported Past Surgical History: Orthopedic Surgery, Tonsillectomy Past Anesthesia/Blood Transfusion Reactions: No Reported Reaction Past Psychological History: Anxiety, Bipolar, Depression, Schizophrenia Smoking Status: Current every day smoker Past Alcohol Use History: None Reported Past Drug Use History: None Reported - Past Family History Mother History Unknown: Yes Additional Family Medical History / Comment(s): Mother is alive with history of diabetes, hypertension, stroke, chronic back problems. Father Additional Family Medical History / Comment(s): Patient states he does not know his father but does know he has Hodgkin's lymphoma. Brother(s) Additional Family Medical History / Comment(s): Patient has 7/2 brothers and does not know any medical problems. Patient has 1 half-sister and he does not know her medical problems. General Exam - General Exam Comments Initial Comments: GENERAL: Patient is well-developed and well-nourished. Patient is nontoxic and well- hydrated and is in no acute distress. ENT: Neck is soft and supple. No significant lymphadenopathy is noted. Oropharynx is clear. Moist mucous membranes. Neck has full range of motion without eliciting any pain. EYES: The sclera were anicteric and conjunctiva were pink and moist. Extraocular movements were intact and pupils were equal round and reactive to light. Eyelids were unremarkable. PULMONARY: Unlabored respirations. Good breath sounds bilaterally. No audible rales rhonchi or wheezing was noted. CARDIOVASCULAR: There is a regular rate and rhythm without any murmurs gallops or rubs. ABDOMEN: Soft and nontender with normal bowel sounds. No palpable organomegaly was noted. There is no palpable pulsatile mass. SKIN: Skin is clear with no lesions or rashes and otherwise unremarkable. NEUROLOGIC: Patient is alert and oriented x3. Cranial nerves II through XII are grossly intact. Motor and sensory are also intact. Normal speech, volume and content. Symmetrical smile. MUSCULOSKELETAL: Normal extremities with adequate strength and full range of motion. No lower extremity swelling or edema. No calf tenderness. LYMPHATICS: No significant lymphadenopathy is noted PSYCHIATRIC: Normal psychiatric evaluation. Patient denies any suicidal or homicidal ideations. Limitations: no limitations Course Vital Signs 06/08/19 12:27 Temperature 98 F Pulse Rate 94 Respiratory 18 Rate Blood Pressure 126/77 O2 Sat by Pulse 98 Oximetry Medical Decision Making - Lab Data Lab Results 06/08/19 Range/Units 12:45 Urine Opiates Screen Detected H (NotDetected) Ur Oxycodone Screen Not Detected (NotDetected) Urine Methadone Screen Not Detected (NotDetected) Ur Propoxyphene Screen Not Detected (NotDetected) Ur Barbiturates Screen Not Detected (NotDetected) U Tricyclic Antidepress Not Detected (NotDetected) Ur Phencyclidine Scrn Not Detected (NotDetected) Ur Amphetamines Screen Not Detected (NotDetected) U Methamphetamines Scrn Not Detected (NotDetected) U Benzodiazepines Scrn Not Detected (NotDetected) Urine Cocaine Screen Detected H (NotDetected) U Marijuana (THC) Screen Detected H (NotDetected) Disposition Clinical Impression: Bipolar disorder Disposition: ADMITTED IP TO THIS HOSP Referrals: Mauro Beaver MD [Primary Care Provider] - 1-2 days Time of Disposition: 14:47
[2019-06-08 13:14] LABS: Amphetamine Screen,Urine Not Detected (NotDetected); Barbiturate Screen,Urine Not Detected (NotDetected); Benzodiazepines Screen,Urine Not Detected (NotDetected); Cocaine Screen,Urine Detected (NotDetected); Methadone Screen, Urine Not Detected (NotDetected); Opiate Screen,Urine Detected (NotDetected); Oxycodone Screen, Urine Not Detected (NotDetected); Phencyclidine Screen,Urine Not Detected (NotDetected); Tricyclic Antidepressant,Urine Not Detected (NotDetected); Urn Cannabinoid Scrn Detected (NotDetected)
[2019-06-08] MEDS ORDERED: LORazepam 1 MG TAB PO STA (14:48)
[2019-06-08] MEDS ORDERED: fluPHENAZine DECANOATE 25 MG/ML 5ML MDV IM SCH (17:00)
[2019-06-08] MEDS ORDERED: MAG HYDROX/AL HYDROX/SIMETH 30 ML CUP PO PRN (17:01)
[2019-06-08] MEDS ORDERED: MAGNESIUM HYDROXIDE 2,400 MG/10 ML CUP PO PRN (17:01)
[2019-06-08] MEDS: NICOTINE 14MG/24HR PATCH TRANSDERM SCH (17:22)
[2019-06-08] MEDS ORDERED: LITHIUM CARBONATE ER 450 MG TABLET.ER PO SCH (21:00)
--- NOTE | 2019-06-08 22:52 | CONS ---
CONSULTATION DATE OF CONSULTATION: 06/08/2019. REASON FOR CONSULTATION: Medical management requested by Dr. Ramsay. CONSULTATION: This is a 24-year-old patient who follows with Dr. David Beaver. The patient has a known history of bipolar disorder. The patient has been on lithium. Patient got 5 days ago, has a 3-year-old son turning 4 tomorrow. The patient ran out of his lithium 4 days ago and patient has not slept for a few days. The patient does smoke cigarettes. Does marijuana. Has done other recreational drugs in the past. The patient has otherwise been tolerating his diet. 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 The patient does appear to be a bit tensed and slightly anxious. REVIEW OF SYSTEMS: CONSTITUTIONAL: None. HEENT: None. RESPIRATORY none. CARDIOVASCULAR: None. GASTROINTESTINAL none. GENITOURINARY: None. MUSCULOSKELETAL: None. HEMATOLOGIC: None. LYMPHATICS: None. PSYCHIATRY as above. NEUROLOGICAL none. DERMATOLOGICAL: Patient has some body tattoo and skin piercing. PAST MEDICAL HISTORY: Bipolar disorder. Recreational marijuana use. SOCIAL HISTORY: The patient is only working 1 job right now. Went through a divorce 5 days ago. He has a 3-year-old child. Does smoke cigarettes, variable amount. Does marijuana. In the past, has done crack cocaine and heroin not recently. FAMILY HISTORY: Reviewed. Noncontributory to presentation. HOME MEDICATIONS: 1. Prolixin 25 mg IM q.21 days. 2. Lithobid ER 450 mg q.h.s. ALLERGIES: CANTALOUPE. PHYSICAL EXAMINATION: VITAL SIGNS: On examination, temperature 98.6. Pulse 107, respiratory 16, blood pressure 124/79, pulse ox 98% on room air. GENERAL APPEARANCE: Average built, slightly anxious. EYES: Pupil equal. Conjunctivae normal. HEENT: External appearance of nose and ears normal. Oral cavity normal. Ear piercing. NECK: JVD not raised. Mass not palpable. RESPIRATORY effort normal. LUNGS are clear. CARDIOVASCULAR: First and second sounds normal. No edema. ABDOMEN soft, nontender. Liver and spleen not palpable. LYMPHATIC: No lymph nodes palpable in the neck and axilla. PSYCHIATRY: Alert and oriented times three. Mood and affect anxious-appearing. INVESTIGATIONS: Urine positive for opiate and cocaine, marijuana. ASSESSMENT: 1. Bipolar disorder with possible manic episode. 2. Chronic nicotine dependence, patient is a cigarette smoker. 3. Recreational marijuana use. 4. Cocaine use occasionally. PLAN: Care was discussed with the patient. Told to avoid any recreational drugs. The patient will be given a nicotine patch. The patient should follow up with Dr. David Beaver upon discharge. Thank you Dr. Ramsay. Copy to Dr. David Beaver [facility]. MMKATHLEENL / APOLINARN: [id number] /
[2019-06-08] MEDS: LORazepam 1 MG TAB PO PRN (23:43)
[2019-06-09] MEDS: ZIPRASIDONE 20 MG VIAL IM PRN ×2 (01:12→12:20)
[2019-06-09] MEDS: LORazepam 2 MG/ML INJ IM PRN ×2 (01:12→12:20)
[2019-06-09] MEDS ORDERED: NICOTINE 14MG/24HR PATCH TRANSDERM SCH (09:00)
[2019-06-09] MEDS: NICOTINE 14MG/24HR PATCH TRANSDERM SCH (09:18)
[2019-06-09 09:20] LABS: ALT 27 U/L (21-72); AST 29 U/L (17-59); African American GFR (CKD) >90 (>60 ml/min/1.73 sqM); Alkaline Phosphatase 82 U/L (38-126); Anion Gap 14 mmol/L; Blood Urea Nitrogen 19 mg/dL (9-20); Calcium 9.9 mg/dL (8.4-10.2); Carbon Dioxide 26 mmol/L (22-30); Chloride 102 mmol/L (98-107); Cholesterol 105 mg/dL (<200); Glucose 82 mg/dL (74-99); HDL Cholesterol 43 mg/dL (40-60); LDL Cholesterol,Calculated 44 mg/dL (0-99); Non-African American GFR(CKD) >90 (>60 ml/min/1.73 sqM); Potassium 4.4 mmol/L (3.5-5.1); Sodium 142 mmol/L (137-145); Total Bilirubin 0.8 mg/dL (0.2-1.3); Total Protein 8.8 g/dL (6.3-8.2); Triglycerides 92 mg/dL (<150)
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
[2019-06-09] MEDS: LITHIUM CARBONATE ER 450 MG TABLET.ER PO SCH (20:17)
[2019-06-09] MEDS: LORazepam 1 MG TAB PO PRN (20:17)
[2019-06-10] MEDS: LITHIUM CARBONATE ER 450 MG TABLET.ER PO SCH ×2 (09:15→21:00)
[2019-06-10] MEDS: NICOTINE 14MG/24HR PATCH TRANSDERM SCH (09:15)
[2019-06-10] MEDS: ACETAMINOPHEN TAB 325 MG TAB PO PRN (11:18)
[2019-06-10] MEDS: LORazepam 1 MG TAB PO PRN ×2 (11:18→21:01)
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
[2019-06-11] MEDS: NICOTINE 14MG/24HR PATCH TRANSDERM SCH (07:42)
[2019-06-11] MEDS: LORazepam 1 MG TAB PO PRN ×2 (07:43→20:58)
[2019-06-11] MEDS: LITHIUM CARBONATE ER 450 MG TABLET.ER PO SCH ×2 (07:43→20:57)
[2019-06-11] MEDS: ZIPRASIDONE 20 MG VIAL IM PRN ×2 (12:09→21:28)
[2019-06-11] MEDS: LORazepam 2 MG/ML INJ IM PRN (12:10)
--- NOTE | 2019-06-11 16:12 | P.PN ---
Progress Note - Text Progress Note Date: 06/11/19 linical Problems: Bipolar disorder most recent episode manic with psychotic features, cocaine use disorder, marijuana abuse disorder, opiate disorder, poor compliance with psychiatric treatment Interim history: I reviewed the medical record, interviewed the patient and discuss his treatment and treatment plan during team meeting. He approached me several times throughout the day requesting to talk. During each meeting he requested to be taken off "one-to-one" and alleged that "someone else" placed the sharp items in his room. He also repeatedly requested to discharge and denying that he has a mental illness or needs psychiatric treatment. Mental status exam: He presented as a tall, thin male. His hands remain heavily ink stained. He was demanding and intrusive. He had a blunted facial expression and frequently stare mute during the interview. At times began sobbing when he talked about missing his son's birthday republican. He was able to sit during the interview but is frequently pacing the unit. His speech was spontaneous and varied according to his mood. His speech was at times rapid. His affect was labile. He denied suicidal ideation or wishes. He expressed feeling hopeless and helpless regarding his continued hospitalization. He ruminated about this hospitalization and didn't be discharged to attend his son's birthday republican. He appeared paranoid and guarded. His thinking was illogical and associations were not coherent. He denied hallucinations and did not appear to be responding to internal stimuli. Assessment: He is seriously mentally ill and minimally improve from admission. He shows no insight or understanding of his need for psychiatric treatment. Plan: Continue inpatient treatment. Continue safety cautions with one-to-one. Continue Lithobid 450 mg twice a day, obtain lithium level in 1-2 days and adjust the dose lithium to achieve a serum level between 0.80 and 1.2. Continue monthly injections of Prolixin decanoate 25 mg IM. Continue Ativan 1 mg by mouth/IM 3 times a day when necessary for agitation or aggression as well as Geodon 20 mg IM twice a day when necessary for agitation or aggression. Encourage participation in therapeutic groups and activities. Evaluate clinical status response to treatment daily basis.
[2019-06-11] MEDS: ACETAMINOPHEN TAB 325 MG TAB PO PRN (17:08)
[2019-06-12] MEDS: NICOTINE 14MG/24HR PATCH TRANSDERM SCH (09:13)
[2019-06-12] MEDS: LORazepam 1 MG TAB PO PRN (09:13)
[2019-06-12] MEDS: LITHIUM CARBONATE ER 450 MG TABLET.ER PO SCH (09:13)
--- NOTE | 2019-06-12 12:26 | P.PN ---
Progress Note - Text Progress Note Date: 06/12/19 Clinical Problems: Bipolar disorder most recent episode manic with psychotic features, cocaine use disorder, marijuana abuse disorder, opiate disorder, poor compliance with psychiatric treatment Interim history: I reviewed the medical record, interviewed the patient and discuss his treatment and treatment plan during team meeting. He remains on one-to-one due to his impulsivity and confusion. He is frequently requesting when necessary Ativan for complaints of anxiety. Yesterday, he became angry and restless following a conversation with his mother and ex-. He demanded "a shot of Ativan and Geodon." Apparently his parents informed him that he cannot return to his former home and they're recommending placement in a long term. He complained that his "" is selling their home. Yesterday he received 2 mg of Ativan by mouth, 1 mg IM and 20 mg of Geodon IM. Macopin level this morning was 0.5 Mental status exam: He presented as a tall, thin male. His hands remainink stained. He was not demanding intrusive as he was during prior encounters. He had a blunted facial expression and frequently stare mute during the interview. He cried when he talked about his "divorce" and his , selling their home." He was able to sit during the interview but is frequently pacing the unit. His speech was spontaneous but so that at times he was inaudible. His affect was labile. He denied suicidal ideation or wishes. He expressed feeling hopeless and helpless regarding his continued hospitalization. He did not ruminated about discharge. He appeared paranoid and guarded. His thinking was illogical and associations were not coherent. He denied hallucinations and did not appear to be responding to internal stimuli. Assessment: He is seriously mentally ill and minimally improve from admission. He shows no insight or understanding of his need for psychiatric treatment. Plan: Continue inpatient treatment. Continue safety cautions with one-to-one. Increase lithium to 600 mg twice a day. Continue monthly injections of Prolixin decanoate 25 mg IM. Continue Ativan 1 mg by mouth/IM 3 times a day when necessary for agitation or aggression as well as Geodon 20 mg IM twice a day when necessary for agitation or aggression. Encourage participation in therapeutic groups and activities. Evaluate clinical status response to treatment daily basis.
[2019-06-12] MEDS: BENZOCAINE 20 % GEL 15 GM TUBE MM PRN (14:52)
[2019-06-12] MEDS: ACETAMINOPHEN TAB 500 MG TAB PO PRN (19:33)
[2019-06-12] MEDS: LITHIUM CARBONATE 300 MG CAP PO SCH (21:56)
--- NOTE | 2019-06-13 09:44 | P.PN ---
Progress Note - Text Interval history: The patient is in the hallway he approaches the office to speak with me. He indicates feeling frustrated that he is not discharge. He asked to be discharged this weekend. In reviewing the last progress note the patient's lithium has just been increased to 600 mg twice daily. The last lithium levels have been 0.2 and most recently 0.5. BUN and creatinine have been within normal limits. We discussed the purpose of the lithium his questions were answered regarding his medications. Staff report he slept 5 hours last evening. He indicates he is going to groups and eating meals. He does demonstrate some thought disorganization. At one point he was discussing concern as to where he will stay and requested to go to a "half way house". Mental status exam: The patient is a tired appearing but not lethargic. He is a disheveled appearance eye contact is appropriate speech is fluent spontaneous nonpressured. He answer several questions briefly in a linear fashion. Was spontaneous speech he discusses unrelated topics. He continues to demonstrate a lack of appreciation for his presenting symptoms and his mental illness in general. He is reporting no suicidal or homicidal ideation. He is reporting no auditory or visual hallucinations he denies having specific delusions however he is not a valid historian. He demonstrates no verbal or physical aggressiveness. He demonstrates no tremor or involuntary repetitive movement. Plan: The patient will continue on his current psychotropic medication. We will continue to monitor him for safety he is encouraged to participate in the milieu. Vital signs reviewed. He requires continued psychiatric hospitalization.
[2019-06-13] MEDS: LITHIUM CARBONATE 300 MG CAP PO SCH ×2 (09:49→20:49)
[2019-06-13] MEDS: NICOTINE 14MG/24HR PATCH TRANSDERM SCH (09:49)
[2019-06-13] MEDS: ACETAMINOPHEN TAB 500 MG TAB PO PRN (23:27)
[2019-06-13] MEDS: LORazepam 1 MG TAB PO PRN (23:27)
[2019-06-14] MEDS: NICOTINE 14MG/24HR PATCH TRANSDERM SCH (09:04)
[2019-06-14] MEDS: LITHIUM CARBONATE 300 MG CAP PO SCH ×2 (09:05→21:54)
[2019-06-14] MEDS: BENZOCAINE 20 % GEL 15 GM TUBE MM PRN (09:05)
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
[2019-06-15] MEDS: NICOTINE 14MG/24HR PATCH TRANSDERM SCH (10:29)
[2019-06-15] MEDS: LITHIUM CARBONATE 300 MG CAP PO SCH ×2 (10:29→20:41)
[2019-06-15] MEDS: BENZOCAINE 20 % GEL 15 GM TUBE MM PRN ×3 (10:30→20:46)
[2019-06-15] MEDS: ACETAMINOPHEN TAB 500 MG TAB PO PRN ×2 (13:27→20:44)
[2019-06-15] MEDS ORDERED: ETODOLAC 400 MG TAB PO PRN (13:44)
--- NOTE | 2019-06-15 14:58 | P.PN ---
Progress Note - Text Progress Note Date: 06/15/19 Clinical Problems: Bipolar disorder most recent episode manic with psychotic features, cocaine use disorder, marijuana abuse disorder, opiate disorder, poor compliance with psychiatric treatment Interim history: I reviewed the medical record, interviewed the patient and discuss his treatment and treatment plan during team meeting. We discontinued one-to-one last Saturday. He has had no episodes of behavioral dyscontrol or episodes of aggression since we discontinued the one-to-one. He complained of increased sedation from the increased dose of lithium. He talked about returning to his trailer home after discharge. He does not want to be placed in the detention as recommended by his guardian. He is attending most therapeutic groups and activities. He slept 5 hours last night. Mental status exam: He presented as a tall, thin male who appeared mildly sedated. Most of the ink has been washed his hands. He was not demanding or intrusive as he was during prior encounters. He had a blunted facial expression and frequently stare mute during the interview. He was not l abile. He is able to focus and attend to the interview. He was able to sit during the interview and is not been pacing the unit. His speech was spontaneous but so that at times he was inaudible. His affect was blunted but stable. He denied suicidal ideation or wishes. He did not expressed feeling hopeless and helpless. He did not ruminated about discharge. He did not appear paranoid and guarded. His thinking was concrete and associations were coherent. He denied hallucinations and did not appear to be responding to internal stimuli. Assessment: He is seriously mentally ill and moderately improve from admission. He shows no insight or understanding of his need for psychiatric treatment. Plan: Continue inpatient treatment. Continue safety cautions with one-to-one. Increase lithium to 600 mg twice a day and obtain a repeat lithium level in 2 days. Continue monthly injections of Prolixin decanoate 25 mg IM. Continue Ativan 1 mg by mouth/IM 3 times a day when necessary for agitation or aggression as well as Geodon 20 mg IM twice a day when necessary for agitation or aggression. Encourage participation in therapeutic groups and activities. Evaluate clinical status response to treatment daily basis.
[2019-06-15] MEDS: LORazepam 1 MG TAB PO PRN (20:42)
[2019-06-16] MEDS: NICOTINE 14MG/24HR PATCH TRANSDERM SCH (11:07)
[2019-06-16] MEDS: LITHIUM CARBONATE 300 MG CAP PO SCH ×2 (11:07→21:12)
[2019-06-16] MEDS: ACETAMINOPHEN TAB 500 MG TAB PO PRN ×2 (11:10→21:12)
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
[2019-06-16] MEDS: BENZOCAINE 20 % GEL 15 GM TUBE MM PRN (21:12)
[2019-06-16] MEDS: LORazepam 1 MG TAB PO PRN (21:12)
[2019-06-17] MEDS: NICOTINE 14MG/24HR PATCH TRANSDERM SCH ×2 (09:43→09:48)
[2019-06-17] MEDS: LITHIUM CARBONATE 300 MG CAP PO SCH ×2 (09:44→21:34)
--- NOTE | 2019-06-17 14:32 | P.PN ---
Progress Note - Text Progress Note Date: 06/17/19 Clinical Problems: Bipolar disorder most recent episode manic with psychotic features, cocaine use disorder, marijuana abuse disorder, opiate disorder, poor compliance with psychiatric treatment Interim history: I reviewed the medical record, interviewed the patient and discuss his treatment and treatment plan during team meeting. He remains angry about the guardians recommendation for alf placement. Again, he expressed a belief that his mother wants him placed in a alf so she could profit from selling his property. I asked him why he place a hinge pen in his shoe. He alleged that he found it in the laundry room and hid it because he planned to use it "to escape". He t hought he might be able to use the hinge pin to pry open a door or "pick a lock." He gave a disjointed explanation of how he would use a hinge pin to pry open a locked door or pick a lot. After he escaped he would both live in work at the [facility]. He stated that he will not allow us to "draw another lithium level". He talked about "it being of violation of God." Mental status exam: He presented as a tall, thin male who appeared mildly sedated. He now only had ink stains under his fingernails. He was not demanding or intrusive. He had a blunted facial expression. He was angry about the discharge plan but was not hostile or inappropriate during our interview. He is able to focus and attend to the interview. He was able to sit during the interview. His speech was spontaneous but so that at times he was inaudible. He smiled intermittently during the interview. He denied suicidal ideation or wishes. He did not expressed feeling hopeless and helpless. He did not ruminated about discharge. He did not appear paranoid and guarded. His thinking was concrete and associations were not coherent, logical or organized. He denied hallucinations and did not appear to be responding to internal stimuli. Assessment: He is seriously mentally ill and moderately improve from admission. He shows no insight or understanding of his need for psychiatric treatment. Plan: Continue inpatient treatment. Continue safety cautions with one-to-one. Continue lithium to 600 mg twice a day and encourage him to allow a repeat lithium level. Continue monthly injections of Prolixin decanoate 25 mg IM. Continue Ativan 1 mg by mouth/IM 3 times a day when necessary for agitation or aggression as well as Geodon 20 mg IM twice a day when necessary for agitation or aggression. Encourage participation in therapeutic groups and activities. Evaluate clinical status response to treatment daily basis. [facility] is pursuing alf placement.
[2019-06-17] MEDS: ACETAMINOPHEN TAB 500 MG TAB PO PRN (21:30)
[2019-06-17] MEDS: BENZOCAINE 20 % GEL 15 GM TUBE MM PRN ×2 (21:34→23:51)
[2019-06-17] MEDS: LORazepam 1 MG TAB PO PRN (21:34)
[2019-06-18] MEDS ORDERED: ETODOLAC 400 MG TAB PO PRN (00:34)
[2019-06-18] MEDS: LIDOCAINE VISCOUS 2% 15 ML CUP MUCOUS MEM PRN (00:51)
[2019-06-18] MEDS: LITHIUM CARBONATE 300 MG CAP PO SCH ×2 (09:28→20:40)
[2019-06-18] MEDS: NICOTINE 14MG/24HR PATCH TRANSDERM SCH (09:28)
--- NOTE | 2019-06-18 15:30 | P.PN ---
Progress Note - Text Progress Note Date: 06/18/19 Clinical Problems: Bipolar disorder most recent episode manic with psychotic features, cocaine use disorder, marijuana abuse disorder, opiate disorder, poor compliance with psychiatric treatment Interim history: I reviewed the medical record, interviewed the patient and discuss his treatment and treatment plan during team meeting. He complained of being "overmedicated" and expressed continued dissatisfaction regarding halfway placement. I again encouraged him to consent to the lithium level to evaluate the appropriateness of the current dose. He is not attending therapeutic groups or activities. He spends most of his time in bed. Mental status exam: He presented as a tall, thin male who appeared mildly sedated. He was not demanding or intrusive. He had a blunted facial expression. He was angry about the discharge plan but was not hostile or inappropriate during our interview. He is able to focus and attend to the interview. He was able to sit during the interview. His speech was spontaneous but so that at times he was inaudible. His affect was blunted. He denied suicidal ideation or wishes. He did not expressed feeling hopeless and helpless. He did not ruminated about discharge. He did not appear paranoid and guarded. His thinking was concrete and associations were not coherent, logical or organized. He denied hallucinations and did not appear to be responding to internal stimuli. Assessment: He is seriously mentally ill and moderately improve from admission. He shows no insight or understanding of his need for psychiatric treatment. Plan: Continue inpatient treatment. Continue safety cautions. Continue lithium to 600 mg twice a day and encourage him to allow a repeat lithium level. Continue monthly injections of Prolixin decanoate 25 mg IM. Continue Ativan 1 mg by mouth/IM 3 times a day when necessary for agitation or aggression as well as Geodon 20 mg IM twice a day when necessary for agitation or aggression. Encourage participation in therapeutic groups and activities. Evaluate clinical status response to treatment daily basis. [facility] is pursuing halfway placement.
[2019-06-18] MEDS: ACETAMINOPHEN TAB 500 MG TAB PO PRN (20:50)
[2019-06-18] MEDS: LORazepam 1 MG TAB PO PRN (23:34)
[2019-06-19] MEDS: LITHIUM CARBONATE 300 MG CAP PO SCH (09:33)
[2019-06-19] MEDS: NICOTINE 14MG/24HR PATCH TRANSDERM SCH ×2 (09:33→09:36)
--- NOTE | 2019-06-19 12:36 | P.PN ---
Progress Note - Text Progress Note Date: 06/19/19 Clinical Problems: Bipolar disorder most recent episode manic with psychotic features, cocaine use disorder, marijuana abuse disorder, opiate disorder, poor compliance with psychiatric treatment Interim history: I reviewed the medical record, interviewed the patient and discuss his treatment and treatment plan during team meeting. He again complained of being "overmedicated" again. He remains unhappy with his mother's decision regarding custodial placement. We discussed treatment options and agreed to decrease the lithium back to 900 mg daily. We discussed other options including switching to a second generation antipsychotic. He requested to "hold off" a major medication changes until after he is discharged. He again refused as blood drawn for a lithium level. He is not attending therapeutic groups or activities. He spends most of his time in bed. Mental status exam: He presented as a tall, thin male who appeared mildly sedated. He had a blunted facial expression. He was pleasant and cooperative with the interview. He is able to focus and attend to the inte rview. He was able to sit during the interview. His speech was spontaneous but with decreased rate and rhythm. His affect was blunted. He denied suicidal ideation or wishes. He did not expressed feeling hopeless and helpless. He did not ruminated about discharge. He did not appear paranoid and guarded. His thinking was concrete and associations were not coherent, logical or organized. He denied hallucinations and did not appear to be responding to internal stimuli. Assessment: He is seriously mentally ill and moderately improve from admission. He shows no insight or understanding of his need for psychiatric treatment. Plan: Continue inpatient treatment. Continue safety cautions. Change lithium to 450 mg twice a day and continue to encourage him to allow a repeat lithium level. Continue monthly injections of Prolixin decanoate 25 mg IM. Continue Ativan 1 mg by mouth/IM 3 times a day when necessary for agitation or aggression as well as Geodon 20 mg IM twice a day when necessary for agitation or aggression. Encourage participation in therapeutic groups and activities. Evaluate clinical status response to treatment daily basis. [facility] is pursuing custodial placement.
[2019-06-19] MEDS: ACETAMINOPHEN TAB 500 MG TAB PO PRN (20:13)
[2019-06-19] MEDS: LITHIUM CARBONATE ER 450 MG TABLET.ER PO SCH (20:13)
[2019-06-19] MEDS: LORazepam 1 MG TAB PO PRN (20:13)
[2019-06-20] MEDS: LITHIUM CARBONATE ER 450 MG TABLET.ER PO SCH ×2 (08:15→20:18)
[2019-06-20] MEDS: NICOTINE 14MG/24HR PATCH TRANSDERM SCH (08:16)
--- NOTE | 2019-06-20 12:17 | P.PN ---
Progress Note - Text Progress Note Date: 06/20/19 Interval history: Patient was seen in his room lying down in the bed and was agreeable street to contract technical writer. Patient appeared to be more cooperative today and states that he is "doing much better document". He states that he is getting her to take his lithium at the current dose and also states that he may be going to [facility] upon discharge. He also claims that he's been speaking with his family members and possibly his friend may come and visit him today but she is looking forward to. Patient states that he slept well last night and has been going to groups however did not quit the morning group. He admits to fair energy and fair appetite. At this time patient denies any suicidal or homicidal ideations intent or plan. Denies any Auditory or visual hallucinations. Patient denies any side effects from the medications and has been compliant with meds. Mental status exam: General Appearance: Patient appears to be stated age is alert, directable with marginal hygiene and grooming. Fair eye contact. Behavior: No agitated behavior. Patient is calm and directable Speech: Patient's speech is fluent and nonpressured. Soft-spoken. Mood/Affect: Mood is improving, affect is congruent and constricted. Suicidality/Homicidality: Patient denies having any suicidal or homicidal ideation intent or plan. Perceptions: Patient denies any auditory or visual hallucinations. Though content/process: There is no evidence of any delusional thought content and thought process is linear and goal-directed. More future oriented. Memory and concentration: AOX3, grossly intact for the purposes of this session Judgment and insight: improving mildly. Assessment/Plan: Continue with current diagnosis. Patient continues to meet criteria for inpatient psychiatric admission for symptom stabilization and safety.Patient will be maintained on current psychotropic medication regimen. Monitor for medication compliance and for any psychotropic medication side effects. Will continue to monitor ongoing response to treatment.
[2019-06-21] MEDS: ACETAMINOPHEN TAB 500 MG TAB PO PRN (00:57)
[2019-06-21] MEDS: LORazepam 1 MG TAB PO PRN ×2 (01:18→23:35)
[2019-06-21] MEDS: LITHIUM CARBONATE ER 450 MG TABLET.ER PO SCH ×2 (09:30→21:04)
[2019-06-21] MEDS: NICOTINE 14MG/24HR PATCH TRANSDERM SCH (09:30)
[2019-06-21 10:32] VITALS: BMI 21.8
--- NOTE | 2019-06-21 11:04 | P.PN ---
Progress Note - Text Progress Note Date: 06/21/19 Interval history: Patient was seen in his room lying down in the bed and was agreeable street to editorial writer. patient refused to leave his room and states that he is feeling tired today. He claims that he had a difficult time sleeping last night. He offered no other complaints and states that he is doing well at this time. Patient was asking about possible discharge and wanted to leave the hospital. He states that his mood has been improving. he claimed that he went to some groups yesterday however not this morning. He admits to fair energy and fair appetite. At this time patient denies any suicidal or homicidal ideations intent or plan. Denies any Auditory or visual hallucinations. Patient denies any side effects from the medications and has been compliant with meds. Mental status exam: General Appearance: Patient appears to be stated age is alert, directable with marginal hygiene and grooming. Fair eye contact. Behavior: No agitated behavior. Patient is calm and directable Speech: Patient's speech is fluent and nonpressured. Soft-spoken. Mood/Affect: Mood is improving, affect is congruent and constricted. Suicidality/Homicidality: Patient denies having any suicidal or homicidal ideation intent or plan. Perceptions: Patient denies any auditory or visual hallucinations. Though content/process: There is no evidence of any delusional thought content and thought process is linear and goal-directed.focused on discharge. Memory and concentration: AOX3, grossly intact for the purposes of this session Judgment and insight: improving Assessment/Plan: Continue with current diagnosis. Patient continues to meet criteria for inpatient psychiatric admission for symptom stabilization and safety.Patient will be maintained on current psychotropic medication regimen. Monitor for medication compliance and for any psychotropic medication side effects. Will continue to monitor ongoing response to treatment.
[2019-06-22] MEDS: LITHIUM CARBONATE ER 450 MG TABLET.ER PO SCH ×2 (09:30→20:44)
[2019-06-22] MEDS: NICOTINE 14MG/24HR PATCH TRANSDERM SCH ×2 (09:30→09:34)
--- NOTE | 2019-06-22 13:37 | P.PN ---
Progress Note - Text Progress Note Date: 06/22/19 Interval History: Patient is a 24-year-old male, his chart was reviewed and the patient was seen. Patient states that he is refusing another lithium level, states that he is going to sleep during his time here on the unit until he can leave. Patient states that he had been living with his partner and son and was working prior to his admission. He states that he and his partner in [facility], he left the home. He states that he went downhill at that time and states that he ran out of his medication for 3 days prior to admission. He reports that prior to coming into the hospital he had been living in his car in [place] because he had better access to drugs in and started using cocaine and heroin since the separation from his partner. He states that he has used marijuana on a daily basis since the age of 18. Patient states that his mother is his guardian and he is going to petition the court to have her removed is his guardian does not agree with placement in a senior living. Patient states that he doesn't see why he needs to go to a senior living and got into an argument with his mother last evening on the phone and stated to her that he might as well "hang myself in the bathroom" and he stated to me that he did not mean this but said it because he was angry with his mother. Patient states that he does not have any current suicide attempts and denied any prior attempts. Patient had no complaints of side effects from his medications. He states that he is attending activities but not group therapy. Mental Status: Appearance/Attitude: Patient is casually dressed, makes intermittent eye contact and was cooperative during the interview. Behavior: Patient did not exhibit any psychomotor agitation or retardation Speech/Language: Patient's speech was spontaneous of normal volume and rhythm and he was coherent Thought Process: Patient was goal-directed was no evidence of loose association or flight of ideas Thought Content: Patient denied any auditory or visual hallucinations and no delusions or paranoid ideation were elicited. Patient states that he got into an argument with his mother last evening on the phone that she is insisting that he go to a senior living when he is discharged from the hospital and the patient does not wish to do so. Patient's mother is his guardian and he states that he doesn't know why he has a guardian. Patient states that he threatened to hang himself in the bathroom last night when he was speaking with his mother states he had no intention of doing that. Patient's been sleeping about 4 hours a night, states he is going to sleep his way through the rest of his admission. Suicidal/Homicidal Ideation: Patient denies any current suicidal or homicidal ideation Sensorium/Cognition: Patient is alert and oriented to person, place and time and his recent and remote memory are grossly intact Mood/Affect: Patient's mood is irritable and affect is appropriate to his mood Insight/Judgment: Patient's insight and judgment are limited Assessment: Patient again refused to have a lithium level drawn, patient states that he is not attending group therapy but is a attending activities in the afternoon and stated that he was then going to sleep his way for the rest of his admission. Patient does not agree with the plan of his guardian to go to a senior living after discharge. Patient partner had asked him to leave in [facility] and patient have been living in his car prior to his admission stating that he was in [place] where he had better access to cocaine and heroin. Patient had no complaints of side effects from his medication. Patient denied any current suicidal ideation and states that he had no intent to act yesterday but was only making a comment to his mother because he was angry with her and angry with the plan for senior living placement. [facility] placement was discussed in team treatment meeting antedate there is no availability. Plan: Patient will continue on lithium 450 mg twice a day and he continues to refuse to have a lithium level drawn. Patient is also on Prolixin decanoate 25 mg every 21 days and last received an injection on June 08. Patient continues to require hospitalization to stabilize his symptoms. Will discontinue the one-to-one suicide precautions as the patient denies any current suicidal ideation. Continue to look for senior living placement for this patient.
[2019-06-22] MEDS: LORazepam 1 MG TAB PO PRN (20:45)
[2019-06-22] MEDS: ACETAMINOPHEN TAB 500 MG TAB PO PRN (20:45)
[2019-06-23] MEDS: LITHIUM CARBONATE ER 450 MG TABLET.ER PO SCH ×2 (10:47→20:28)
[2019-06-23] MEDS: NICOTINE 14MG/24HR PATCH TRANSDERM SCH (10:50)
--- NOTE | 2019-06-23 12:17 | P.PN ---
Progress Note - Text Progress Note Date: 06/23/19 Interval History: Patient is a 24-year-old male who was seen today, he was in his room in bed when approached. Patient states that he's still sleeping, had no complaints and stated "are we done here" and got up and left the office. Mental Status: Appearance/Attitude: Patient is casually dressed and makes intermittent eye contact and is superficially cooperative Behavior: Patient does not exhibit any psychomotor agitation or retardation Speech/Language: Patient's speech is spontaneous of normal volume and rhythm and he is coherent Thought Process: Patient is goal-directed there is no evidence of loose association or flight of ideas Thought Content: Patient denies any auditory or visual hallucinations and no delusions or paranoid ideation or elicited. Patient states that he is sleeping and eating well, not attending groups and states that he has no current concerns. Suicidal/Homicidal Ideation: Patient denied any current suicidal or homicidal ideation Sensorium/Cognition: Patient is alert and oriented to person, place, and time and his recent and remote memory are grossly intact Mood/Affect: Patient's mood is euthymic and his affect appropriate to his mood Insight/Judgment: Patient's insight and judgment are poor Assessment: Patient continues to spend his time in his room in bed, not attending groups or activities and today stated that if there was no new information regarding placement that he had nothing more state and left the interview room. He denies any current suicidal ideation. Patient is sleeping and eating. Patient reported no side effects from his medication. Patient continues to refuse to allow to have repeat lithium level drawn. Plan: He'll continue on lithium 450 mg twice a day to target his mood and Prolixin decanoate 25 mg every 21 days. In team treatment meeting was discussed that there is no source of financing for his fdc placement, [facility] will continue to research financial assistance for placement in a fdc as his guardian does not feel the patient can return to her home. Patient's guardian states that they've applied for SSI. Patient continues to require hospitalization until appropriate discharge placement can be arranged.
[2019-06-23] MEDS: ACETAMINOPHEN TAB 500 MG TAB PO PRN (20:29)
[2019-06-23] MEDS: BENZOCAINE 20 % GEL 15 GM TUBE MM PRN (20:29)
[2019-06-23] MEDS: LORazepam 1 MG TAB PO PRN (20:30)
[2019-06-23] MEDS: ETODOLAC 400 MG TAB PO PRN (23:11)
[2019-06-23] MEDS: LIDOCAINE VISCOUS 2% 15 ML CUP MUCOUS MEM PRN (23:12)
[2019-06-24] MEDS: LITHIUM CARBONATE ER 450 MG TABLET.ER PO SCH ×2 (09:48→21:00)
[2019-06-24] MEDS: NICOTINE 14MG/24HR PATCH TRANSDERM SCH (09:50)
--- NOTE | 2019-06-24 11:51 | P.PN ---
Progress Note - Text Progress Note Date: 06/24/19 Interval History: patient is a 24-year-old male who was in his room lying in bed and refused to get up and speak with me. Patient stated that he had spoken to his parents and they're coming to pick him up today. Patient refused to have any further conversation with me and continued to lie in his bed with his eyes closed. Mental Status: patient was seen in his room as he refused to get up out of bed and come to the office to speak with me. Patient stated that his parents were coming to pick him up today to take him home and he refused to answer any further questions or have any further conversation with me. Assessment: patient continues to spend his days in bed coming out in the even ing, patient is not attending groups, he is eating and sleeping. Plan: patient continues on lithium 450 mg twice a day and Prolixin [id number] mg every 21 days next dose due on June 29. We continue to await placement in a [facility], as his guardian has requested. Patient continues to require hospitalization until appropriate discharge placement can be obtained.
[2019-06-24] MEDS: ACETAMINOPHEN TAB 500 MG TAB PO PRN (21:02)
[2019-06-24] MEDS: LORazepam 1 MG TAB PO PRN (21:02)
[2019-06-24] MEDS: BENZOCAINE 20 % GEL 15 GM TUBE MM PRN (21:04)
[2019-06-25] MEDS: LITHIUM CARBONATE ER 450 MG TABLET.ER PO SCH ×2 (08:34→21:20)
[2019-06-25] MEDS: NICOTINE 14MG/24HR PATCH TRANSDERM SCH ×2 (08:34→18:58)
--- NOTE | 2019-06-25 13:09 | P.PN ---
Progress Note - Text Progress Note Date: 06/25/19 Interval History: patient is a 24-year-old male who refuses to get up out of bed and come to the interview room so spoke with him in his room. Patient continues to insist that his parents are coming up to pick him up and that he is being discharged. Patient refused to come and speak with me stating that if I wasn't going to tell me was discharged there is no reason for him to speak with me. Mental Status: patient is lying in a hospital bed and makes no eye contact and refuses to get up and come to the interview room to speak with me. Patient states he is being discharged as his parents agreed to take him home and that he won't speak to me unless about discharge. Further evaluation was not performed as patient refused to answer any further questions Assessment: patient continues to stay in bed and not attending any groups or activities, refused to come and speak with me and insists that his parents are coming to take him back home. In team meeting it was discussed that there still is no placement for this gentleman and social workers trying to contact the parents to clarify whether his statements are correct or not. Patient did sleep for 6 hours last night and has been compliant with his medications. Plan: patient will continue on lithium 450 mg twice a day and Prolixin long- acting injectable due on 06/29/2019.patient continues to require hospitalization to obtain appropriate placement at the time of discharge.
[2019-06-25] MEDS: ACETAMINOPHEN TAB 500 MG TAB PO PRN ×2 (17:41→23:26)
[2019-06-25] MEDS: ETODOLAC 400 MG TAB PO PRN (17:42)
[2019-06-25] MEDS: LORazepam 1 MG TAB PO PRN (17:43)
[2019-06-25] MEDS: BENZOCAINE 20 % GEL 15 GM TUBE MM PRN (21:21)
[2019-06-25] MEDS: LIDOCAINE VISCOUS 2% 15 ML CUP MUCOUS MEM PRN (23:26)
[2019-06-26] MEDS: NICOTINE 14MG/24HR PATCH TRANSDERM SCH (08:42)
[2019-06-26] MEDS: LITHIUM CARBONATE ER 450 MG TABLET.ER PO SCH ×2 (08:42→21:37)
--- NOTE | 2019-06-26 12:55 | P.PN ---
Progress Note - Text Progress Note Date: 06/26/19 Interval History: patient is a 24-year-old male who was seen today, he did come to the interview room questioned about why he got angry with the clinical social work aide yesterday he stated to me that his stepfather had said that she was the one who suggested a usp, he realized later that this wasn't in fact true and did apologize to her. Patient states he is getting tired of being in the hospital and waiting for placement. Patient states that his stepfather typically sets him off when he speaks with them. Patient states that he is frustrated with the lack of progress in placement. Mental Status: Appearance/Attitude: patient is casually dressed, makes eye contact and was superficially cooperative Behavior: patient did not display any psychomotor agitation or retardation. Speech/Language: patient's speech was spontaneous of normal volume and rhythm and he was coherent Thought Process: patient was goal-directed there is no evidence of loose association or flight of ideas Thought Content: patient denied any auditory or visual hallucinations and no delusions or paranoid ideation were elicited. Patient states that he is frustrated staying in the hospital and he only came here to get his meds adjusted. Patient states that he is sleeping fairly well, attended some groups this morning. He reports no appetite disturbance. Suicidal/Homicidal Ideation: patient denies any current suicidal or homicidal ideation Sensorium/Cognition: patient is alert and oriented to person, place and time and his recent and remote memory are grossly intact Mood/Affect: patient's mood is more pleasant today however he does remain irritable and his affect is appropriate to his mood Insight/Judgment: patient's insight and judgment are limited Assessment: patient continues to get angry at times his most recent episode with social work as his stepfather told him they suggested he go to a usp. Patient states he sees that is not true and apologized to the clinical social work aide. Per social work patient's mother will not speak with the patient on the phone because he is always making threats to her. Patient has attended some groups today, no appetite or sleep disturbance. Plan: patient continues on lithium 450 mg twice a day and Prolixin long-acting injectable 25 mg every 21 days. Patient was encouraged to continue to attend groups and activities, we continue to await placement prior to making discharge arrangements patient requires hospitalization to arrange a safe discharge plan.
[2019-06-26] MEDS: LORazepam 1 MG TAB PO PRN (14:47)
[2019-06-26] MEDS: ACETAMINOPHEN TAB 500 MG TAB PO PRN (21:36)
[2019-06-27] MEDS: LITHIUM CARBONATE ER 450 MG TABLET.ER PO SCH ×2 (10:04→21:28)
[2019-06-27] MEDS: NICOTINE 14MG/24HR PATCH TRANSDERM SCH (10:05)
--- NOTE | 2019-06-27 16:22 | P.PN ---
Progress Note - Text Progress Note Date: 06/27/19 interval history: Patient is seen in [facility] today. He reports he is waiting for placement in a [facility]. He does not voice any adverse psychotropic medication side effects. He has been attending some groups. Mental status exam: He is alert and cooperative with the interview. His speech is fluent, not rapid or pressured. Thought processes organized. His mood seems to be stable. He does not verbalize any thoughts of harm to self others. No evidence of active psychosis. He does not display any agitation. Plan: Patient will be maintained on current psychotropic medication regimen. Continue to monitor for any medication side effects and monitor his ongoing response to treatment. He is awaiting [facility] placement.
[2019-06-27] MEDS: LORazepam 1 MG TAB PO PRN (21:28)
[2019-06-28 07:09] VITALS: RESP 16
[2019-06-28] MEDS: LITHIUM CARBONATE ER 450 MG TABLET.ER PO SCH ×2 (08:51→20:21)
[2019-06-28] MEDS: NICOTINE 14MG/24HR PATCH TRANSDERM SCH (08:51)
[2019-06-28] MEDS: LORazepam 1 MG TAB PO PRN (14:25)
[2019-06-28] MEDS: ACETAMINOPHEN TAB 500 MG TAB PO PRN (14:27)
--- NOTE | 2019-06-28 18:34 | P.PN ---
Progress Note - Text Progress Note Date: 06/28/19 interval history: Patient is seen in [facility] [place] today. He reports that his mood is doing okay. He talks about having upcoming visit with his parents time. He makes reference to his parents wanting to take him home, he has been waiting for [facility] placement. He describes he feels like on his current dose of Prolixin at times with his blood pressure he gets more agitated and makes reference to wanting to be back on his lower dose. He is encouraged to continue to discuss potential side effects.he does describe dealing with some tooth pain. Mental status exam: He is alert and cooperative with the interview.his mood overall seems to be stable. He denies any thoughts of harm to self or others. He does not verbalize any hallucinations or keren delusions. He does not show any current agitation. Plan: Patient will be maintained on current psychotropic medication regimen. He is encouraged to continue discuss issues regarding side effects. We'll continue to monitor for any psychotropic medication side effects and monitor his ongoing response to treatment.
[2019-06-29] MEDS: NICOTINE 14MG/24HR PATCH TRANSDERM SCH (10:30)
[2019-06-29] MEDS: LITHIUM CARBONATE ER 450 MG TABLET.ER PO SCH ×2 (10:30→20:57)
[2019-06-29] MEDS ORDERED: fluPHENAZine DECANOATE 25 MG/ML 5ML MDV IM SCH (12:00)
--- NOTE | 2019-06-29 14:07 | P.PN ---
Progress Note - Text Progress Note Date: 06/29/19 Chief complaint: "I feel ready for discharge " Subjective: The patient has been seen today as follow-up, chart reviewed, case discussed with the treatment team. Patient slept about 4-5 hours last night. Patient has been going to some groups and other unit activities. Patient reports fair appet ite. Patient has been waiting for placement and according to the patient and social media content specialist who verified information from parents that parents willing to take the patient back to their house and he doesn't want the patient to wait for placement at a intermediate. Parents are the patient's guardian. Patient reports taking his medications and he is willing to get lithium level before discharge. He denies feeling depressed and he denies anxiety or mood swings. He denies any manic or psychotic symptoms and he denies suicidal or homicidal ideation. Patient denies any auditory or visual hallucinations or paranoid ideation. Patient generally presented with very restricted affect and was very superficial in his answers. Objective: Vitals has been reviewed. Mental status examination; Appearance: The patient appears stated age, adequately groomed and dressed, no specific features. Gait/posture: Normal gait, Normal arm swinging: No abnormal movements. Attitude and behavior: engaged, cooperative, eye contact. Motor activity: Normal psychomotor activity Speech: Normal rate, tone. Mood: Anxious Affect: Restricted Thought form: goal-directed, linear, coherent. Thought content: Non-delusional, denies suicidal thoughts, denies homicidal thoughts, denies intentions or plans. Perception: Denies any auditory or visual hallucinations Attention: No impairment. Patient was able to repeat serial 5. Orientation: Patient patient was fully oriented to time place person and situation. Insight: Patient has fair insight about his psychiatric disorder. Judgment: Patient has fair judgment about his psychiatric treatment. Assessment: Bipolar disorder type I, most recent episode manic with psychotic features. Cocaine use disorder. Cannabis use disorder. Opioid use disorder. Plan: Continue inpatient level of care due to need for further stabilization on medications, and discharge planning. Precautions: Continue 15 minutes check for safety. Consider medical consultation if any acute medical issues arise. Provide the patient individual, group therapy, substance use disorder counseling to give better insight and learn coping skills. Medications: Continue Prolixin D can wait 25 mg IM every 21 days for psychotic symptoms, the patient is due for injection today. Continue lithium 450 mg twice daily for mood stabilization. Labs: Obtain lithium level tomorrow. Discharge patient to OUTPATIENT services upon a stabilization Expected LOS: 1-2 days.
[2019-06-30 07:23] VITALS: BP 134/64; PULSE 72; TEMP 98.7
[2019-06-30] MEDS: NICOTINE 14MG/24HR PATCH TRANSDERM SCH (09:50)
[2019-06-30] MEDS: LITHIUM CARBONATE ER 450 MG TABLET.ER PO SCH (09:50)
--- NOTE | 2019-06-30 14:15 | P.DS ---
Providers Date of admission: 06/08/19 14:56 Expected date of discharge: 06/30/19 Attending physician: Cheyenne Mtz MD Consults: 06/08/19 17:01 Consult Physician Routine Consulting Provider: Reyes Ag Consult Reason/Comments: H&P and medical Do you want consulting provider notified?: Yes Primary care physician: Mauro Beaver [facility] Course: Brief HPI: As per the HPI from initial psychiatric evaluation during this hospital stay: " I reviewed the medical record and interviewed the patient. I approached him for the interview when he was sitting in the activity room. This was an unusual interview because he initially stated he could not come into my office because he is paralyzed from the waist down. He then proceeded to hop the chair across the hallway into my room. [place] through the hallway he slid off the chair and pulled himself across the hallway into my room and onto another chair. 15 minutes later he was walking normally along hallway. He alleged that he has "cerebral palsy" that ntermittently causes paralysis of his legs. He alleged that he came in hospital on his own accord in order to be "checked out". He is feeling better and wishes to be discharged. He perseverated about attending his 4-year-old son's birthday tomorrow. On admission to unit he was acutely agitated and required frequent redirection. He tampered with the water faucet in his room and flooded the floor of his room. He also removed the emergency messaging sensor on the ceiling of his room. He ripped the mirror off the wall of his room and was writing on the smith with a pen. His management required security and the administration of IM Ativan and Geodon. I asked about the results of his urine drug screen which was positive for opiates, cocaine and marijuana. He stated that his psychiatric medications "have not been working" and he was "self-medicating" with cocaine and took his girlfriend was T3's. He admitted to not taking lithium alleging that he had "ran out" and could not get an appointment. His lithium level on admission to the unit was less than 0.2. He did not keep his appointment for his monthly injection of Prolixin Decanoate. He denied problems or concerns. She denied all psychiatric symptoms. He denied feeling depressed, anxious or being restless. " Hospital Course: Psychiatric: The patient was initiated on psychotropic medication lithium for mood stabilization and Prolixin for psychotic symptoms which were the same psychiatric medication prior to his admission. Patient reports he was prescribed Ativan as needed for severe anxiety prior to this admission. Prolixin was given to the patient every 21 days with the first of those during this hospital stay was given on the June 08 and last dose prior to discharge was given on June 29, and his next injection is due on July 20. The medication doses has been adjusted to optimize the stability of the psychiatric symptoms, and to avoid side effects. Patient tolerated the above medication/s very well, without side effects. The patient was admitted for a safe and supportive environment. A psychiatric, medical, and psychosocial evaluations were done on admission. The patient attended some groups to obtain coping skills and process stress. Patient was compliant with his medications. Patient got along with other peers and with staff. The objective signs of mood instability and psychotic symptoms have been improved. Pt. denies any suicidal ideation, not made any hopelessness/helplessness statements for more than 3 days prior to discharge. Maximum hospitalization benefit was reached and subsequently discharge was planned, and patient is appropriate to continue treatment on an outpatient basis. On the day of discharge the patient was able to create an appropriate safety plan and denies any side effect of medications. Patient was educated about his psychiatric medications including need to monitor lithium level and obtain blood work to rule out any toxic side effects from lithium, patient expressed understanding and willing to continue blood work as ordered by his outpatient psychiatrist/provider. Discussion was held about need to stop use of drugs including marijuana , opioid, and cocaine , including their effects on mood, interaction with psychiatric medications, and their role in events leading up to admission. Patient is in the pre-contemplation stage of a change. Medical: Patient was educated about smoking cessation and a prescription for nicotine replacement therapy was offered and the time of discharge but the patient refused. Assessment: Assessment at the day of discharge: The patient was seen at the day of discharge. Patient denies any sleep or appetite disturbances, denies feeling hopeless, worthless or helpless. Also, patient denies any other depressive or manic symptoms. Patient denies any psychotic symptoms. Patient denies suicidal or homicidal thoughts, intention or plans. Nurses and therapist reported patient is psychiatrically stable, and agreed to discharge plan. Mental status examination on discharge: Appearance: The patient appears stated age, adequately groomed and dressed, no specific features. Gait/posture: Normal gait, Normal arm swinging: No abnormal movements. Attitude and behavior: engaged, cooperative, eye contact. Motor activity: Normal psychomotor activity Speech: Normal rate, tone. Mood: "fine" Affect: Constricted Thought form: goal-directed, linear, coherent. Thought content: Non-delusional, denies suicidal thoughts, denies homicidal thoughts, denies intentions or plans. Perception: Denies any auditory or visual hallucinations Attention: No impairment. Patient was able to repeat serial 5. Orientation: Patient patient was fully oriented to time place person and situation. Insight: Patient has fair insight about his psychiatric disorder. Judgment: Patient has fair judgment about his psychiatric treatment. Discharge diagnoses: Bipolar disorder type I, most recent episode manic with psychotic features. Cocaine use disorder. Cannabis use disorder. Opioid use disorder. Health Concerns: Activity: As tolerated Diet: Regular Special Instructions: Labs to be completed after discharge: As clinically indicated by his outpatient psychiatrist and PCP. Continue blood work to monitor lithium level in the rule out any toxic effect including kidney function test and thyroid function as clinically indicated. Discharge checklist for suicide and violence to determine stability: Safety plan was discussed with the patient. Patient denies any current suicidal/ homicidal or violent ideation/plan/ intent. Patient has ability to address stressors/emotions. Patient understands and is comfortable with discharge plan. [facility] Emergency number (911, crisis number) provided to the patient. Avoid the use of street drugs and alcohol. Take all medications as prescribed. When you are in need of refills please contact your medical provider and/or outpatient psychiatrist to have this done. Please go to scheduled outpatient appointment for aftercare. If symptoms return or become worse call the crisis line at and/or go to the nearest emergency room for an evaluation. Pertinent Studies: Laboratory Tests Range/Units 06/08/19 06/08/19 06/08/19 12:45 17:41 17:41 Sodium (137-145) mmol/L 142 Potassium (3.5-5.1) mmol/L 4.4 Chloride (98-107) mmol/L 102 Carbon Dioxide (22-30) mmol/L 26 Anion Gap mmol/L 14 BUN (9-20) mg/dL 19 Creatinine (0.66-1.25) mg/dL 0.97 Est GFR (CKD-EPI)AfAm (>60 ml/min/1.73 sqM) >90 Est GFR (CKD-EPI)NonAf (>60 ml/min/1.73 sqM) >90 Glucose (74-99) mg/dL 82 Calcium (8.4-10.2) mg/dL 9.9 Total Bilirubin (0.2-1.3) mg/dL 0.8 AST (17-59) U/L 29 ALT (21-72) U/L 27 Alkaline Phosphatase (38-126) U/L 82 Total Protein (6.3-8.2) g/dL 8.8 H Albumin (3.5-5.0) g/dL 5.0 Triglycerides (<150) mg/dL 92 Cholesterol (<200) mg/dL 105 LDL Cholesterol, Calc (0-99) mg/dL 44 HDL Cholesterol (40-60) mg/dL 43 TSH (0.465-4.680) mIU/L 1.130 Urine Opiates Screen (NotDetected) Detected H Ur Oxycodone Screen (NotDetected) Not Detected Urine Methadone Screen (NotDetected) Not Detected Ur Propoxyphene Screen (NotDetected) Not Detected Ur Barbiturates Screen (NotDetected) Not Detected U Tricyclic Antidepress (NotDetected) Not Detected Ur Phencyclidine Scrn (NotDetected) Not Detected Ur Amphetamines Screen (NotDetected) Not Detected U Methamphetamines Scrn (NotDetected) Not Detected U Benzodiazepines Scrn (NotDetected) Not Detected [place] mmol/L <0.2 Urine Cocaine Screen (NotDetected) Detected H U Marijuana (THC) Screen (NotDetected) Detected H Range/Units 06/12/19 06/30/19 08:40 08:22 Sodium (137-145) mmol/L Potassium (3.5-5.1) mmol/L Chloride (98-107) mmol/L Carbon Dioxide (22-30) mmol/L Anion Gap mmol/L BUN (9-20) mg/dL Creatinine (0.66-1.25) mg/dL Est GFR (CKD-EPI)AfAm (>60 ml/min/1.73 sqM) Est GFR (CKD-EPI)NonAf (>60 ml/min/1.73 sqM) Glucose (74-99) mg/dL Calcium (8.4-10.2) mg/dL Total Bilirubin (0.2-1.3) mg/dL AST (17-59) U/L ALT (21-72) U/L Alkaline Phosphatase (38-126) U/L Total Protein (6.3-8.2) g/dL Albumin (3.5-5.0) g/dL Triglycerides (<150) mg/dL Cholesterol (<200) mg/dL LDL Cholesterol, Calc (0-99) mg/dL HDL Cholesterol (40-60) mg/dL TSH (0.465-4.680) mIU/L Urine Opiates Screen (NotDetected) Ur Oxycodone Screen (NotDetected) Urine Methadone Screen (NotDetected) Ur Propoxyphene Screen (NotDetected) Ur Barbiturates Screen (NotDetected) U Tricyclic Antidepress (NotDetected) Ur Phencyclidine Scrn (NotDetected) Ur Amphetamines Screen (NotDetected) U Methamphetamines Scrn (NotDetected) U Benzodiazepines Scrn (NotDetected) [place] mmol/L 0.5 0.5 Urine Cocaine Screen (NotDetected) U Marijuana (THC) Screen (NotDetected) Procedures: Plan: Patient will continue follow-up at-. As per discharge plan Continue the following medications: As per discharge plan Patient Condition at Discharge: Stable Patient will be discharge to home Last dose of Prolixin Decanoate 25 mg IM given 06/29 and didn't injection due on 07/20. Last [place] level obtained 06/30 and was 0.5 Discharge Medication List fluPHENAZine DECANOATE [Prolixin Decanoate] 25 mg IM Q21D 06/08/19 [History] [place] Carbonate ER [Lithobid] 450 mg PO BID #60 tablet.er 06/30/19 [Rx] Plan - Discharge Summary Discharge Rx Participant: No New Discharge Prescriptions: New [place] Carbonate ER [Lithobid] 450 mg PO BID #60 tablet.er Continue fluPHENAZine DECANOATE [Prolixin Decanoate] 25 mg IM Q21D Discontinued [place] Carbonate ER [Lithobid] 450 mg PO HS Discharge Medication List fluPHENAZine DECANOATE [Prolixin Decanoate] 25 mg IM Q21D 06/08/19 [History] [place] Carbonate ER [Lithobid] 450 mg PO BID #60 tablet.er 06/30/19 [Rx] Follow up Appointment(s)/Referral(s): [facility] [Outside] - 07/02/19 12:30 pm ([place] ) Mauro Beaver MD [Primary Care Provider] - 1-2 days Patient Instructions/Handouts: How to Stop Smoking (DC), Bipolar Disorder (DC), Cannabis Abuse (DC), Suicide Prevention (DC) Activity/Diet/Wound Care/Special Instructions: Activity and diet as tolerated. Avoid the use of street drugs and alcohol. Take all medications as prescribed. When you are in need of refills on your medications please contact your medical provider and/or outpatient psychiatrist to have this done. Please go to scheduled outpatient appointment for aftercare treatment. If symptoms return or become worse, call the crisis line at and/or go to the nearest emergency room for evaluation. Discharge Disposition: HOME SELF-CARE
== END 2019-06-30 13:00 | disposition home or self-care (01) | DRG 885 ==
LOC: EC 12:08 → 3MHU 14:56
PROVIDERS: ADMIT Psychiatry & Neurology Psychiatry; ATTEND Psychiatry & Neurology Psychiatry
DX: F31.2 Bipolar disorder, current episode manic severe with psychotic features (principal); F14.99 Cocaine use, unspecified with unspecified cocaine-induced disorder; F12.99 Cannabis use, unspecified with unspecified cannabis-induced disorder; F11.99 Opioid use, unspecified with unspecified opioid-induced disorder; F17.210 Nicotine dependence, cigarettes, uncomplicated; F41.9 Anxiety disorder, unspecified; G80.9 Cerebral palsy, unspecified; Y04.0XXA Assault by unarmed brawl or fight, initial encounter; Z80.7 Family history of other malignant neoplasms of lymphoid, hematopoietic and related tissues; Z82.3 Family history of stroke; Z82.49 Family history of ischemic heart disease and other diseases of the circulatory system; Z83.3 Family history of diabetes mellitus; Z91.19 Patient's noncompliance with other medical treatment and regimen
CPT/HCPCS: 80053; 80061; 80178; 80306; 82075; 84443; 99285

== ENCOUNTER 2020-11-25 16:44 | Emergency (ER) | payer OTHER ==
[2020-11-25 17:36] VITALS: BP 133/101; PULSE 87; RESP 18; TEMP 98.3
--- NOTE | 2020-11-25 18:31 | ED ---
General Adult HPI - General Chief complaint: Psychiatric Symptoms Stated complaint: Court order pickup Time Seen by Provider: 11/25/20 17:44 Source: patient, RN notes reviewed, old records reviewed Mode of arrival: ambulatory Limitations: no limitations - History of Present Illness Initial comments: 25-year-old male presents for psychiatric evaluation. Patient has been petitioned. He was brought in for psychiatric evaluation, he's been calm and cooperative. He denies suicidal or homicidal ideation. Patient indicates that he's been noncompliant with treatment. Patient does seem somewhat paranoid. Denies alcohol. No physical complaints. - Related Data Home Medications Medication Instructions Recorded Confirmed fluPHENAZine decanoate [Prolixin 25 mg IM Q28D 06/08/19 11/25/20 Decanoate] Allergies Allergy/AdvReac Type Severity Reaction Status Date / Time cantaloupe Allergy Anaphylaxis Verified 11/25/20 19:57 clonazepam [From Klonopin] AdvReac Hallucinati Verified 11/25/20 19:57 ons Review of Systems ROS Statement: Those systems with pertinent positive or pertinent negative responses have been documented in the HPI. ROS Other: All systems not noted in ROS Statement are negative. Past Medical History Past Medical History: No Reported History Additional Past Medical History / Comment(s): he thinks that he may of have a seizure at that time per history-- Pt states that he has never been dx with seizure history. History of Any Multi-Drug Resistant Organisms: None Reported Past Surgical History: Orthopedic Surgery, Tonsillectomy Past Anesthesia/Blood Transfusion Reactions: No Reported Reaction Past Psychological History: Anxiety, Bipolar, Depression, Schizophrenia Smoking Status: Current every day smoker Past Alcohol Use History: None Reported Past Drug Use History: Cocaine, Marijuana - Past Family History Mother History Unknown: Yes Additional Family Medical History / Comment(s): Mother is alive with history of diabetes, hypertension, stroke, chronic back problems. Father Additional Family Medical History / Comment(s): Patient states he does not know his father but does know he has Hodgkin's lymphoma. Brother(s) Additional Family Medical History / Comment(s): Patient has 7/2 brothers and does not know any medical problems. Patient has 1 half-sister and he does not know her medical problems. General Exam Limitations: no limitations General appearance: alert, in no apparent distress Head exam: Present: atraumatic, normocephalic Eye exam: Present: normal appearance, PERRL ENT exam: Present: normal exam Neck exam: Present: normal inspection. Absent: tenderness, meningismus Respiratory exam: Present: normal lung sounds bilaterally. Absent: respiratory distress, wheezes Cardiovascular Exam: Present: regular rate, normal rhythm GI/Abdominal exam: Present: soft. Absent: distended, tenderness, guarding Extremities exam: Present: normal inspection, normal capillary refill. Absent: pedal edema, calf tenderness Neurological exam: Present: alert, oriented X3 Psychiatric exam: Present: flat affect Skin exam: Present: warm, dry, intact. Absent: cyanosis, diaphoretic Course Vital Signs 11/25/20 17:32 Temperature 98.3 F Pulse Rate 87 Respiratory 18 Rate Blood Pressure 133/101 O2 Sat by Pulse 97 Oximetry - Reevaluation(s) Reevaluation #1: 11/25/20 18:30 Patient cleared for EPS evaluated Medical Decision Making - Medical Decision Making Patient had been petitioned. He's been calm and cooperative in the emergency department. He is positive for cocaine and marijuana. He has been evaluated by EP acid and felt to be safe for discharge. He has no suicidal or homicidal ideation. He is given 3 mental health as well as rehabilitation resources. - Lab Data Lab Results 11/25/20 Range/Units 18:07 Urine Opiates Screen Not Detected (NotDetected) Ur Oxycodone Screen Not Detected (NotDetected) Urine Methadone Screen Not Detected (NotDetected) Ur Propoxyphene Screen Not Detected (NotDetected) Ur Barbiturates Screen Not Detected (NotDetected) U Tricyclic Antidepress Not Detected (NotDetected) Ur Phencyclidine Scrn Not Detected (NotDetected) Ur Amphetamines Screen Not Detected (NotDetected) U Methamphetamines Scrn Not Detected (NotDetected) U Benzodiazepines Scrn Not Detected (NotDetected) Urine Cocaine Screen Detected H (NotDetected) U Marijuana (THC) Screen Detected H (NotDetected) Disposition Clinical Impression: Cannabis abuse, Cocaine abuse Disposition: HOME SELF-CARE Condition: Fair Instructions (If sedation given, give patient instructions): Cocaine Abuse (ED) Additional Instructions: Please follow up with [facility]. Is patient prescribed a controlled substance at d/c from ED?: No Referrals: Mauro Beaver MD [Primary Care Provider] - 1-2 days Time of Disposition: 20:30
[2020-11-25 18:45] LABS: Amphetamine Screen,Urine Not Detected (NotDetected); Barbiturate Screen,Urine Not Detected (NotDetected); Benzodiazepines Screen,Urine Not Detected (NotDetected); Cocaine Screen,Urine Detected (NotDetected); Methadone Screen, Urine Not Detected (NotDetected); Opiate Screen,Urine Not Detected (NotDetected); Phencyclidine Screen,Urine Not Detected (NotDetected); Tricyclic Antidepressant,Urine Not Detected (NotDetected); Urn Cannabinoid Scrn Detected (NotDetected)
[2020-11-25 18:46] LABS: Oxycodone Screen, Urine Not Detected (NotDetected)
== END 2020-11-25 20:43 | disposition home or self-care (01) ==
LOC: EC 16:44
DX: F12.10 Cannabis abuse, uncomplicated (principal); F14.10 Cocaine abuse, uncomplicated; F17.200 Nicotine dependence, unspecified, uncomplicated; Z82.49 Family history of ischemic heart disease and other diseases of the circulatory system; Z83.3 Family history of diabetes mellitus; Z91.19 Patient's noncompliance with other medical treatment and regimen
CPT/HCPCS: 80306; 82075; 99284

== ENCOUNTER 2020-12-11 20:04 | Inpatient (IN) | payer MEDICAID, OTHER ==
[2020-12-11 21:33] LABS: Amphetamine Screen,Urine Not Detected (NotDetected); Barbiturate Screen,Urine Not Detected (NotDetected); Benzodiazepines Screen,Urine Not Detected (NotDetected); Cocaine Screen,Urine Detected (NotDetected); Methadone Screen, Urine Not Detected (NotDetected); Opiate Screen,Urine Not Detected (NotDetected); Oxycodone Screen, Urine Not Detected (NotDetected); Phencyclidine Screen,Urine Not Detected (NotDetected); Tricyclic Antidepressant,Urine Not Detected (NotDetected); Urn Cannabinoid Scrn Detected (NotDetected)
--- NOTE | 2020-12-11 21:33 | ED ---
Psych HPI - General Chief Complaint: Psychiatric Symptoms Stated Complaint: Petition Time Seen by Provider: 12/11/20 20:58 Source: patient Mode of arrival: ambulatory - History of Present Illness Initial Comments: 25-year-old male presents to the emergency department for psychiatric evaluation. Patient was petitioned by his mother who is concerned for his safety being. She states the patient had recently overdosed twice. Patient states that he does not use any opiate-based drugs, instead he uses smokes crack and smokes cocaine. He also smokes occasional marijuana. Patient also reports history of non-Hodgkin's lymphoma and is using the drugs as an outlet because he is concerned for his well being. He denies any homicidal, suicidal thoughts or ideations at this time. - Related Data Home Medications Medication Instructions Recorded Confirmed fluPHENAZine decanoate [Prolixin 25 mg IM Q28D 06/08/19 12/11/20 Decanoate] Allergies Allergy/AdvReac Type Severity Reaction Status Date / Time cantaloupe Allergy Anaphylaxis Verified 12/11/20 21:20 clonazepam [From Klonopin] AdvReac Hallucinati Verified 12/11/20 21:20 ons Review of Systems ROS Statement: Those systems with pertinent positive or pertinent negative responses have been documented in the HPI. ROS Other: All systems not noted in ROS Statement are negative. Past Medical History Past Medical History: No Reported History Additional Past Medical History / Comment(s): he thinks that he may of have a seizure at that time per history-- Pt states that he has never been dx with seizure history. History of Any Multi-Drug Resistant Organisms: None Reported Past Surgical History: Orthopedic Surgery, Tonsillectomy Past Anesthesia/Blood Transfusion Reactions: No Reported Reaction Past Psychological History: Anxiety, Bipolar, Depression, Schizophrenia Smoking Status: Current every day smoker Past Alcohol Use History: None Reported Past Drug Use History: Cocaine, Marijuana, Opiates - Past Family History Mother History Unknown: Yes Additional Family Medical History / Comment(s): Mother is alive with history of diabetes, hypertension, stroke, chronic back problems. Father Additional Family Medical History / Comment(s): Patient states he does not know his father but does know he has Hodgkin's lymphoma. Brother(s) Additional Family Medical History / Comment(s): Patient has 7/2 brothers and does not know any medical problems. Patient has 1 half-sister and he does not know her medical problems. General Exam Limitations: no limitations General appearance: alert, in no apparent distress Head exam: Present: atraumatic, normocephalic, normal inspection Eye exam: Present: normal appearance, PERRL, EOMI Pupils: Present: normal accommodation ENT exam: Present: normal exam, normal oropharynx, mucous membranes moist Neck exam: Present: normal inspection, full ROM. Absent: tenderness, lymphadenopathy Respiratory exam: Present: normal lung sounds bilaterally. Absent: respiratory distress Cardiovascular Exam: Present: regular rate, normal rhythm, normal heart sounds. Absent: systolic murmur Extremities exam: Present: normal inspection, full ROM. Absent: tenderness Back exam: Present: normal inspection, full ROM. Absent: tenderness Neurological exam: Present: alert, oriented X3, normal gait Psychiatric exam: Present: normal affect, normal mood Skin exam: Present: warm, dry, intact, normal color Course Vital Signs 12/11/20 20:14 Temperature 98.1 F Pulse Rate 102 H Respiratory 18 Rate Blood Pressure 123/79 O2 Sat by Pulse 97 Oximetry Medical Decision Making - Medical Decision Making 25-year-old male presents to the emergency department for psychiatric evaluation. On physical examination, patient appeared to be slightly agitated and does not want to be here. Urine drug screen positive for methamphetamines, marijuana and cocaine. Patient was getting increasingly agitated. Does have history of being very uncooperative and aggressive towards staff during previous admissions. Patient was given Haldol, Ativan and Benadryl. EPS evaluation pending At this time, patient care side of to - Lab Data Lab Results 12/11/20 Range/Units 21:01 Urine Opiates Screen Not Detected (NotDetected) Ur Oxycodone Screen Not Detected (NotDetected) Urine Methadone Screen Not Detected (NotDetected) Ur Propoxyphene Screen Not Detected (NotDetected) Ur Barbiturates Screen Not Detected (NotDetected) U Tricyclic Antidepress Not Detected (NotDetected) Ur Phencyclidine Scrn Not Detected (NotDetected) Ur Amphetamines Screen Not Detected (NotDetected) U Methamphetamines Scrn Detected H (NotDetected) U Benzodiazepines Scrn Not Detected (NotDetected) Urine Cocaine Screen Detected H (NotDetected) U Marijuana (THC) Screen Detected H (NotDetected) Disposition Clinical Impression: Adjustment reaction of adult life Disposition: ADMITTED IP TO THIS HOSP Condition: Fair Is patient prescribed a controlled substance at d/c from ED?: No Referrals: Mauro Beaver MD [Primary Care Provider] - 1-2 days Time of Disposition: 22:12
[2020-12-11] MEDS ORDERED: haloperidoL 5 MG TAB PO STA (22:04)
[2020-12-11] MEDS ORDERED: LORazepam 1 MG TAB PO STA (22:05)
[2020-12-11] MEDS ORDERED: diphenhydrAMINE 50 MG CAP PO STA (22:05)
[2020-12-11] MEDS ORDERED: HALOPERIDOL LACTATE 5 MG/ML 1 ML VIAL IM STA ×2 (23:30→23:57)
[2020-12-12] MEDS ORDERED: haloperidoL 5 MG TAB PO PRN (00:22)
[2020-12-12] MEDS ORDERED: LORazepam 1 MG TAB PO PRN (00:22)
[2020-12-12] MEDS ORDERED: MAGNESIUM HYDROXIDE 2,400 MG/10 ML CUP PO PRN (00:22)
[2020-12-12] MEDS ORDERED: LORazepam 2 MG/ML INJ IM PRN (00:22)
[2020-12-12 01:22] LABS: Amorphous Sediment,Urine Rare /hpf; Appearance,Urine Clear (Clear); Bacteria,Urine Rare /hpf; Bilirubin,Urine Negative (Negative); Blood,Urine Negative (Negative); Color,Urine Yellow; Glucose,Urine (UA) Negative (Negative); Hyaline Casts,Urine 1 /lpf (0-2); Ketones,Urine Negative (Negative); Leukocyte Esterase,Urine Trace (Negative); Mucus,Urine Occasional /hpf; Nitrite,Urine Negative (Negative); PH, Urine 5.5 (5.0-8.0); Protein,Urine Negative (Negative); RBC,Urine 1 /hpf (0-5); Specific Gravity,Urine 1.022 (1.001-1.035); Squamous Epithelial Cell,Urine 1 /hpf (0-4); WBC,Urine 3 /hpf (0-5)
[2020-12-12] MEDS: NICOTINE 14MG/24HR PATCH TRANSDERM SCH (10:32)
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
[2020-12-12] MEDS: LORazepam 1 MG TAB PO PRN ×3 (12:38→21:18)
--- NOTE | 2020-12-12 22:27 | P.PN ---
Progress Note - Text Progress Note Date: 12/12/20 The patient refused to answer questions or be examined. Will attempt again tomorrow.
[2020-12-13] MEDS ORDERED: fluPHENAZine DECANOATE 25 MG/ML 5ML MDV IM ONE ×2 (08:50)
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
[2020-12-13] MEDS: NICOTINE 14MG/24HR PATCH TRANSDERM SCH (10:09)
[2020-12-13] MEDS: LORazepam 1 MG TAB PO PRN ×2 (10:50→20:14)
[2020-12-13] MEDS ORDERED: diphenhydrAMINE 50 MG/ML 1 ML VIAL IM ONE ×2 (11:55→12:00)
[2020-12-13] MEDS ORDERED: diphenhydrAMINE 50 MG/ML 1 ML VIAL ONE (11:56)
[2020-12-13] MEDS: HALOPERIDOL LACTATE 5 MG/ML 1 ML VIAL IM PRN (11:57)
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
[2020-12-14] MEDS: LORazepam 1 MG TAB PO PRN ×3 (08:12→20:52)
[2020-12-14] MEDS: NICOTINE 14MG/24HR PATCH TRANSDERM SCH (08:15)
[2020-12-14] MEDS: CLINDAMYCIN 150 MG CAP PO SCH ×5 (08:16→21:58)
[2020-12-14] MEDS ORDERED: diphenhydrAMINE 50 MG/ML 1 ML VIAL IM STA (09:28)
[2020-12-14] MEDS: HALOPERIDOL LACTATE 5 MG/ML 1 ML VIAL IM PRN (09:31)
[2020-12-14] MEDS ORDERED: OLANZapine 10 MG VIAL IM PRN (11:17)
[2020-12-14] MEDS ORDERED: chlorproMAZINE 25 MG/ML 2 ML AMP IM ONE (11:20)
--- NOTE | 2020-12-14 13:02 | P.MHFACE ---
Face to Face Restrain/Seclus - Evaluation Patient's Immediate Situation: Endangers others' safety, Endangers staff safety Patient's Immediate Situation - Comment: patient was becoming agitated, not directable and apparently spit on staff members Patient's Reaction to the Intervention: Uncooperative, Angry, Belligerent, Bizarre, Aggressive Patient's Reaction to the Intervention - Comment: patient was aggressive and not directable Patient's Medical & Behavioral Condition: Awake, Agitated, Bizarre behavior Need to Continue or Terminate Restraint or Seclusion: Continue Need to Continue or Terminate Restraint/Seclusion - Comment: due to patients behvr and threatening demeanor, aggression towards others patient required restraints and recieved prn IM Face to Face Eval of Restraint Date: 12/14/20 Face to Face Eval of Restraint Time: 12:00
--- NOTE | 2020-12-14 13:08 | P.PN ---
Progress Note - Text Progress Note Date: 12/14/20 Interval History: Patient was seen wandering the hallways and was directable and agreeable to sp eak with group underwriter [place]. Patient was however acting fairly bizarre and intrusive today with group underwriter and also with staff. He was difficult to redirect and threatening group underwriter several times with lawsuits claiming that "I will get my psychologist educational after you to see you for everything you got if you don't discharge me today". He requested several times to have his necklace and jewelry back on the unit and claims that other patients on the unit have that as well. He was walking around carrying a book. He appeared to have poor attention span and was very argumentative today and bizarre. He has very little insight into his condition. At this time patient denies any suicidal or homical ideations, intent or plan. Patient denies any auditory, visual hallucinations. Patient denies any side effects from the medications and has been compliant with meds. Mental Status Exam: General Appearance: Patient appears to be disheveled in appearance, thin, stated age is more alert today, difficult to redirect at times Behavior: Patient is calmly seated without any agitated behavior. bizarre statements at times. argumentative Speech: Patient's speech is fluent and nonpressured. gaurded Mood/Affect: Mood is "fine", affect is incongruent and constricted. Suicidality/Homicidality: Patient denies having any suicidal or homicidal ideation intent or plan. Perceptions: Patient denies any visual hallucinations and denies any auditory hallucinations Though content/process: poverty of content. Bizarre at times, improving mildly Memory and concentration: AOX2, does not know today's date, poor concentration Judgment and insight: chronically poor, improving mildly Assessment Bipolar disorder unspecified methamphetamine abuse cocaine use disorder cannabis use disorder nicotine dependence Plan: -Patient continues to meet criteria for inpatient psychiatric admission for symptom stabilization and safety. Patient has signed adult voluntary form and was placed in patient's chart. Patient did not signed medication consent form. -Medications: increased Prolixin 4 mg twice a day for psychosis/mood stabilization. Patient recieved Prolixin D 25 mg IM on 12/13/20, would recommend the next dose be given in 3 weeks from now on 01/03/21. added deapkote 750 mg hsfor mood stabilization. -thorazine 50mg tid prn for agitation -NRT - nicotine patch -SW on board for discharge planning. Encouraged the patient to participate in milieu. We'll attempt to speak with patient more about substance use treatment and his options as patient is currently homeless.
[2020-12-14] MEDS: DIVALPROEX ER 250 MG TAB.ER.24H PO SCH (20:44)
[2020-12-14] MEDS: chlorproMAZINE 25 MG TAB PO PRN (21:15)
[2020-12-14] MEDS: ACETAMINOPHEN TAB 325 MG TAB PO PRN (22:33)
[2020-12-15] MEDS: LORazepam 1 MG TAB PO PRN ×5 (03:54→20:12)
[2020-12-15] MEDS: NICOTINE 14MG/24HR PATCH TRANSDERM SCH ×2 (09:37→13:49)
[2020-12-15] MEDS: CLINDAMYCIN 150 MG CAP PO SCH ×3 (09:38→20:18)
[2020-12-15] MEDS: chlorproMAZINE 25 MG/ML 2 ML AMP IM PRN (11:31)
--- NOTE | 2020-12-15 12:20 | P.PN ---
Progress Note - Text Progress Note Date: 12/15/20 Interval History: Patient was seen wandering the hallways and was directable and agreeable to sp toñok with technical writer today. He continues to appear to be bizarre and acting appropriately with technical writer. He is very intrusive with his comments and his behaviors. He claims that he does not want to take any other medication besides Prolixin. He makes of multiple reasons why he cannot take certain medications. He is denying any overnight complaints however did state that he pulled his mattress out of his room and into the hallway because "I was scared". He continues to appear to have poor hygiene and grooming and a disheveled appearance. He was walking around carrying a book. He again was very argumentative today and bizarre and has been selectively refusing medications. He has very little insight into his condition. At this time patient denies any suicidal or homical ideations, intent or plan. Patient denies any auditory, visual hallucinations. Patient denies any side effects from the medications and has been compliant with meds. Mental Status Exam: General Appearance: Patient appears to be disheveled in appearance, thin, stated age is more alert today, difficult to redirect at times Behavior: Patient is calmly seated without any agitated behavior. bizarre statements at times. argumentative Speech: Patient's speech is fluent and nonpressured. gaurded Mood/Affect: Mood is "fine", affect is incongruent and constricted. Suicidality/Homicidality: Patient denies having any suicidal or homicidal ideation intent or plan. Perceptions: Patient denies any visual hallucinations and denies any auditory hallucinations Though content/process: poverty of content. Bizarre at times, improving mildly Memory and concentration: AOX2, does not know today's date, poor concentration Judgment and insight: chronically poor, improving mildly Assessment Bipolar disorder unspecified methamphetamine abuse cocaine use disorder cannabis use disorder nicotine dependence Plan: -Patient continues to meet criteria for inpatient psychiatric admission for symptom stabilization and safety. Patient has signed adult voluntary form and was placed in patient's chart. Patient did not signed medication consent form. -Medications: continue with Prolixin 5 mg twice a day for psychosis/mood sta bilization. Patient recieved Prolixin D 25 mg IM on 12/13/20, would recommend the next dose be given in 3 weeks from now on 01/03/21. added deapkote 750 mg hsfor mood stabilization. -thorazine 50mg tid prn for agitation -NRT - nicotine patch -SW on board for discharge planning. Encouraged the patient to participate in milieu. We'll attempt to speak with patient more about substance use treatment and his options as patient is currently homeless.
[2020-12-15] MEDS: DIVALPROEX ER 250 MG TAB.ER.24H PO SCH (20:18)
[2020-12-15] MEDS: MAG HYDROX/AL HYDROX/SIMETH 30 ML CUP PO PRN (23:42)
[2020-12-15] MEDS: chlorproMAZINE 25 MG TAB PO PRN (23:43)
[2020-12-16] MEDS: NICOTINE 14MG/24HR PATCH TRANSDERM SCH ×2 (09:04→19:49)
[2020-12-16] MEDS: CLINDAMYCIN 150 MG CAP PO SCH ×2 (09:04→16:05)
[2020-12-16] MEDS: LORazepam 1 MG TAB PO PRN ×3 (09:05→20:11)
[2020-12-16] MEDS ORDERED: flUPHENAZine 2.5 MG/ML (MDV) 10 ML VIAL IM PRN (09:45)
[2020-12-16] MEDS ORDERED: DIVALPROEX ER 500 MG TAB.ER.24H PO SCH (09:45)
--- NOTE | 2020-12-16 09:56 | P.PN ---
Progress Note - Text Progress Note Date: 12/16/20 Interval History: Patient was seen wandering the hallways and was intrusive with staff and other patients on the unit. Patient apparently was agitated last night and required Thorazine prn. Patient also required restraints and prns yesterday for aggression. Patient was standing in the hallway and demanding to speak to bid writer. He called the bid writer several profanities and was swearing at him. He was agreeable to speak near his room today in the hallway. He continues to have very poor insight and judgment and is impulsive. He threatened bid writer several times and demanded discharge. He claims that he was "intimate" with another patient on the unit in the shower yesterday and does not beleive that it was a problem. He continues to be bizarre at times and argumentative/hostile. He claims that he was able to sleep throughout the night last night. He continues to appear to have poor hygiene and grooming and a disheveled appearance. He followed bid writer after the conversation several times attempting to provoke bid writer and intimidate him. At this time patient denies any suicidal or homical ideations, intent or plan. Patient denies any auditory, visual hallucinations. Patient denies any side effects from the medications. Personal Secretary attempted to speak with patient about his medication options to add onto Prolixin at this time including mood stabilizers and patient was spoken to about the possibility of Depakote, lithium, Seroquel and Lamictal and patient refused all of them. Mental Status Exam: General Appearance: Patient appears to be disheveled in appearance, thin, stated age is more alert today, difficult to redirect at times Behavior: Patient is calmly seated without any agitated behavior. bizarre statements at times. argumentative Speech: Patient's speech is fluent and nonpressured. gaurded Mood/Affect: Mood is "fine", affect is incongruent and constricted. Suicidality/Homicidality: Patient denies having any suicidal or homicidal ideation intent or plan. Perceptions: Patient denies any visual hallucinations and denies any auditory hallucinations Though content/process: poverty of content. Bizarre at times, improving mildly Memory and concentration: AOX2, does not know today's date, poor concentration Judgment and insight: chronically poor, improving mildly Assessment Bipolar disorder unspecified methamphetamine abuse cocaine use disorder cannabis use disorder nicotine dependence Plan: -Patient continues to meet criteria for inpatient psychiatric admission for symptom stabilization and safety. Patient initially has signed adult voluntary form and was placed in patient's chart. Patient did not signed medication consent form. Patient signed AMA and afterwards patients mother filled out a petition, 2 clinical certs were completed and faxed to the courts. -Medications: continue with Prolixin 5 mg twice a day for psychosis/mood stabilization. Patient recieved Prolixin D 25 mg IM on 12/13/20, would recommend the next dose be given in 3 weeks from now on 01/03/21and to be increased to 37.5mg. changed deapkote 500 mg bid for mood stabilization. -thorazine 50mg tid prn for agitation -NRT - nicotine patch -SW on board for discharge planning. Encouraged the patient to participate in milieu. We'll attempt to speak with patient more about substance use treatment and his options as patient is currently homeless. Currently awaiting deferral and court hearing date.
[2020-12-16] MEDS: lamoTRIgine 25 MG TAB PO SCH (10:38)
[2020-12-16] MEDS: chlorproMAZINE 25 MG TAB PO PRN (16:07)
[2020-12-16] MEDS: chlorproMAZINE 25 MG/ML 2 ML AMP IM PRN (21:50)
[2020-12-16] MEDS: MAG HYDROX/AL HYDROX/SIMETH 30 ML CUP PO PRN (23:59)
[2020-12-17] MEDS: CLINDAMYCIN 150 MG CAP PO SCH ×4 (00:04→21:26)
[2020-12-17] MEDS: LORazepam 1 MG TAB PO PRN ×4 (03:34→21:26)
[2020-12-17] MEDS: IBUPROFEN 400 MG TAB PO PRN (03:37)
[2020-12-17] MEDS: chlorproMAZINE 25 MG/ML 2 ML AMP IM PRN (05:25)
[2020-12-17] MEDS: NICOTINE 14MG/24HR PATCH TRANSDERM SCH (09:15)
[2020-12-17] MEDS: lamoTRIgine 25 MG TAB PO SCH (09:16)
[2020-12-17] MEDS ORDERED: chlorproMAZINE 25 MG/ML 2 ML AMP IM STA (09:52)
[2020-12-17] MEDS ORDERED: diphenhydrAMINE 50 MG/ML 1 ML VIAL IM STA (09:53)
[2020-12-17] MEDS ORDERED: LORazepam 2 MG/ML INJ IM STA (09:53)
--- NOTE | 2020-12-17 12:55 | XR ---
EXAMINATION TYPE: XR humerus LT DATE OF EXAM: 12/17/2020 COMPARISON: NONE HISTORY: 25-year-old male pain TECHNIQUE: 2 views FINDINGS: No acute fracture, subluxation, dislocation. No periostitis or osteolysis. No soft tissue calcificati ons are seen. No retained radiopaque foreign body. No elbow joint effusion. IMPRESSION: No acute osseous abnormality seen.
[2020-12-17] MEDS ORDERED: chlorproMAZINE 25 MG/ML 2 ML AMP IM PRN (15:37)
[2020-12-17] MEDS: DICLOFENAC SODIUM GEL 100 GM TUBE TOPICAL SCH ×2 (18:00→22:15)
[2020-12-17] MEDS ORDERED: chlorproMAZINE 25 MG TAB PO SCH (18:00)
--- NOTE | 2020-12-17 23:03 | P.PN ---
Progress Note - Text Progress Note Date: 12/17/20 The patient was evaluated after he was restrained. Patient became very agitated and threatening and was not responding to redirection and continued to present with threatening and intrusive behavior that he was threatening staff, throwing objects and as reported he was intrusive to other patients. Other measure tried to avoid restraints, deescalation, offered PRN medications, one to one observation failed to redirect the patient or prevent the threatening, agitated behavior. Restrain order started 09:50 am with 4 point restraints and patient received PRN Thorazine and Ativan for severe agitation and psychotic behavior. Pt was evaluated for face to face evaluation at 10:30 and he presented agitated, not able to understand the behavior resulted in restraints or understanding the need to stop threatening behavior to avoid restraints in the future. O/E: Patient reports pain in L shoulder and he has very superficial bruises in his L biceps area. He states having pain in L arm. x-ray of L arm ordered and obtained. Pt was constantly monitored during the time of restraint by one to one staff. X-ray of L arm obtained and was negative for any fracture. Pt was released from restraint 11:15 am. PRN Tylenol and Voltaren gel offered to the patient to help with pain and bruises.
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
[2020-12-17] MEDS: chlorproMAZINE 25 MG TAB PO PRN (23:44)
[2020-12-18] MEDS: MAG HYDROX/AL HYDROX/SIMETH 30 ML CUP PO PRN ×3 (04:42→15:10)
[2020-12-18] MEDS: LORazepam 1 MG TAB PO PRN ×4 (04:42→20:14)
[2020-12-18] MEDS: DICLOFENAC SODIUM GEL 100 GM TUBE TOPICAL SCH ×4 (08:15→21:08)
[2020-12-18] MEDS: CLINDAMYCIN 150 MG CAP PO SCH ×3 (08:16→20:12)
[2020-12-18] MEDS: NICOTINE 14MG/24HR PATCH TRANSDERM SCH (08:17)
[2020-12-18] MEDS: lamoTRIgine 25 MG TAB PO SCH ×2 (08:17→20:12)
[2020-12-18] MEDS: IBUPROFEN 400 MG TAB PO PRN ×2 (08:19→15:09)
[2020-12-18] MEDS: chlorproMAZINE 25 MG TAB PO PRN ×2 (10:27→17:17)
--- NOTE | 2020-12-18 13:51 | P.PN ---
Progress Note - Text Progress Note Date: 12/18/20 The patient was evaluated after was restrained. Patient was evaluated at 11:40 AM Pt was evaluated for face to face evaluation and he presented agitated, and angry. The patient was able to understand that severe agitation and aggressive behavior by punching doors and smith was the reason for restraint especially he didn't respond to redirection or other de-escalation escalating measures including offering when necessary medications. O/E: The patient was able to move his left hand was no restriction of movement and no process or evidence of fracture not depressed or reported. The patient was alert and oriented, angry, to some degree irritable and agitated. Management: Will continue restrain and reevaluate the patient for criteria to get out of restraint including controlling his behavior and stop threatening/violent behavior Reasons for restraint order: Aggressive and violent behavior, started to punch smith and doors, not responding to redirection or other de-escalating measures including when necessary medications Other measure tried to avoid restraints have been tried and failed including deescalation, offered PRN medications. All other measures failed to redirect the patient or prevent the threatening, agitated behavior because the patient wsa not responsive. Restraint order started at 11:38 AM with 4 point restraints and patient received PRN Haldol and Ativan was given by IM route for severe agitation and aggressive behavior. Patient was released out from restraints at 12:35 PM Patient was constantly monitored during the time of restraint by one to one staff.
[2020-12-18] MEDS: NICOTINE 21MG/24HR PATCH TRANSDERM SCH (15:09)
--- NOTE | 2020-12-18 15:18 | P.PN ---
Progress Note - Text Progress Note Date: 12/18/20 Subjective: Patient was seen today as a cross coverage for Dr. Cruz. The patient was evaluated, chart reviewed, case discussed with the treatment team. Patient presented much: Today and reports feeling less racing thoughts, and less agitated. No behavioral problems, threatening or aggressive behaviors reported or noticed. Patient continues to take his psychiatric medications and he denies any side effects. He reports feeling helpless with Lamictal and Ativan. He agreed to continue taking Prolixin and he states he will take IM because he forgets taking the oral medication. Denies any sleep or appetite problem. Continues one-to-one observation but apparently no behavioral problems. Objective: Vitals has been reviewed. Mental status examination; Appearance: The patient appears stated age, fairly groomed and dressed, no specific features. Gait/posture: Normal gait, Normal arm swinging: No abnormal movements. Attitude and behavior: Better engaged, more cooperative, better eye contact. Motor activity: Normal psychomotor activity Speech: Normal rate and rhythm Mood: Anxious Affect: Less labile. Thought form: Linear, goal-directed Thought content: Non delusional, denies suicidal or homicidal ideation Perception: Denies any auditory or visual hallucinations Attention: No impairment. Orientation: Patient was fully oriented to time place person and situation. Insight: Patient has better insight about his psychiatric disorder. Judgment: Patient has better judgment about his psychiatric treatment. Assessment: Bipolar disorder, unspecified. Methamphetamine use disorder Cocaine use disorder Cannabis use disorder Nicotine use disorder Plan: Continue inpatient level of care due to need for further monitoring and stabilization Precautions: Continue one to one observation for safety. Consider medical consultation if any acute medical issues arise. Provide the patient individual, group therapy, substance use disorder counseling to give better insight and learn coping skills. Medications: Continue Prolixin 10 mg BID for mood stabilization and psychotic symptoms. Continue Lamictal 75 mg am and 50 mg HS for mood stabilization. Continue as needed medications for psychiatric emergencies including psychosis, agitation and anxiety. Continue non-psychiatric medications for medical conditions as recommended by the medical team. Discharge patient to OUTPATIENT services upon a stabilization
[2020-12-18] MEDS: ACETAMINOPHEN TAB 325 MG TAB PO PRN ×2 (17:18→21:12)
[2020-12-19] MEDS: LORazepam 1 MG TAB PO PRN ×4 (07:37→21:19)
[2020-12-19] MEDS: CLINDAMYCIN 150 MG CAP PO SCH ×3 (10:22→21:16)
[2020-12-19] MEDS: lamoTRIgine 25 MG TAB PO SCH (10:22)
[2020-12-19] MEDS: NICOTINE 21MG/24HR PATCH TRANSDERM SCH (10:23)
[2020-12-19] MEDS: DICLOFENAC SODIUM GEL 100 GM TUBE TOPICAL SCH ×4 (10:24→21:16)
[2020-12-19] MEDS: IBUPROFEN 400 MG TAB PO PRN ×2 (10:41→21:20)
[2020-12-19] MEDS: ACETAMINOPHEN TAB 325 MG TAB PO PRN ×2 (10:42→21:19)
[2020-12-19 11:42] VITALS: BMI 23.8
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
[2020-12-19] MEDS: chlorproMAZINE 25 MG TAB PO PRN ×2 (16:13→21:19)
[2020-12-19] MEDS: lamoTRIgine 100 MG TAB PO SCH (21:16)
[2020-12-20] MEDS ORDERED: lamoTRIgine 25 MG TAB PO SCH (09:00)
[2020-12-20] MEDS: DICLOFENAC SODIUM GEL 100 GM TUBE TOPICAL SCH ×5 (09:22→21:32)
[2020-12-20] MEDS: NICOTINE 21MG/24HR PATCH TRANSDERM SCH (09:22)
[2020-12-20] MEDS: CLINDAMYCIN 150 MG CAP PO SCH ×3 (09:22→21:27)
--- NOTE | 2020-12-20 11:14 | P.PN ---
Progress Note - Text Progress Note Date: 12/20/20 Interval History: Patient was seen lying in his bed this morning and was awoken by software writer and ag reeable to speak. Patient was on a one-to-one security today. Patient did not receive any IM prns last night and no reported episodes of agitation or aggression. Patient was noted by staff to be much calmer and cooperative on the unit. He claims that he is doing better today and denied any overnight complaints. He states that he is able to sleep throughout the night. He appeared to be less argumentative and more cooperative with the software writer today. He appears to have mildly improving insight and judgment. He is not endorsing any delusions or paranoia today. Patient will be meeting with his insurance defense attorney later on today for a deferral. At this time patient denies any suicidal or homical ideations, intent or plan. Patient denies any auditory, visual hallucinations. Patient denies any side effects from the medications and has been taking his medications. Mental Status Exam: General Appearance: Patient appears to be improving in hygiene and grooming in appearance, thin, stated age is more alert today, more directable today Behavior: Patient is calmly seated without any agitated behavior. Less bizarre and argumentative today. Attempts to cooperate Speech: Patient's speech is fluent and nonpressured. Mood/Affect: Mood is "good", affect is congruent and constricted. Suicidality/Homicidality: Patient denies having any suicidal or homicidal ideation intent or plan. Perceptions: Patient denies any visual hallucinations and denies any auditory hallucinations Though content/process: More logical and goal oriented today. Not endorsing any delusions or paranoia. Memory and concentration: AOX3, improving concentration Judgment and insight: chronically poor, improving mildly Assessment Bipolar disorder unspecified methamphetamine abuse cocaine use disorder cannabis use disorder nicotine dependence Plan: -Patient continues to meet criteria for inpatient psychiatric admission for symptom stabilization and safety. Patient initially has signed adult voluntary form and was placed in patient's chart. Patient did not signed medication consent form. Patient signed AMA and afterwards filed for involuntary tx. -Medications: decreased Prolixin PO 6 mg twice a day for psychosis/mood stabilization. Patient recieved Prolixin D 25 mg IM on 12/13/20, will be giving patient next IM dose 50mg IM tonight. Increased lamictal 100mg bid for mood stabilization -thorazine 50mg tid prn for agitation -NRT - nicotine patch -ROCK on board for discharge planning. Encouraged the patient to participate in milieu. deferral date set for today with his insurance defense attorney. d/c security 1:1 today. potential d/c tomorrow, will attempt to get pt a rehab intake appointment prior to discharge
[2020-12-20] MEDS: LORazepam 1 MG TAB PO PRN ×3 (11:40→21:31)
[2020-12-20] MEDS: chlorproMAZINE 25 MG TAB PO PRN (11:40)
[2020-12-20] MEDS: IBUPROFEN 400 MG TAB PO PRN (15:25)
[2020-12-20] MEDS: ACETAMINOPHEN TAB 325 MG TAB PO PRN (15:26)
[2020-12-20] MEDS ORDERED: fluPHENAZine DECANOATE 25 MG/ML 5ML MDV IM ONE (20:00)
[2020-12-20] MEDS: lamoTRIgine 100 MG TAB PO SCH (21:27)
[2020-12-21] MEDS: LORazepam 1 MG TAB PO PRN ×3 (02:03→12:25)
[2020-12-21] MEDS: chlorproMAZINE 25 MG TAB PO PRN ×2 (02:06→08:29)
[2020-12-21 02:13] VITALS: BP 129/69; PULSE 76; RESP 16; TEMP 96.7
[2020-12-21] MEDS: DICLOFENAC SODIUM GEL 100 GM TUBE TOPICAL SCH (08:26)
[2020-12-21] MEDS: NICOTINE 21MG/24HR PATCH TRANSDERM SCH (08:26)
[2020-12-21] MEDS: IBUPROFEN 400 MG TAB PO PRN (08:29)
[2020-12-21] MEDS: ACETAMINOPHEN TAB 325 MG TAB PO PRN (08:30)
[2020-12-21] MEDS ORDERED: lamoTRIgine 100 MG TAB PO SCH (09:00)
[2020-12-21] MEDS ORDERED: diphenhydrAMINE 50 MG CAP PO PRN (09:20)
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
== END 2020-12-21 12:45 | disposition home or self-care (01) | DRG 885 ==
LOC: EC 20:04 → 3MHU 12-12 00:11
PROVIDERS: ADMIT Psychiatry & Neurology Psychiatry; ATTEND Psychiatry & Neurology Psychiatry
DX: F31.9 Bipolar disorder, unspecified (principal); C85.90 Non-Hodgkin lymphoma, unspecified, unspecified site; K04.01 Reversible pulpitis; F12.10 Cannabis abuse, uncomplicated; F14.10 Cocaine abuse, uncomplicated; F15.10 Other stimulant abuse, uncomplicated; F17.200 Nicotine dependence, unspecified, uncomplicated; F20.9 Schizophrenia, unspecified; F43.22 Adjustment disorder with anxiety; G47.00 Insomnia, unspecified; Z59.0 Homelessness; Z78.1 Physical restraint status; Z79.899 Other long term (current) drug therapy; Z80.7 Family history of other malignant neoplasms of lymphoid, hematopoietic and related tissues; Z83.3 Family history of diabetes mellitus; Z91.19 Patient's noncompliance with other medical treatment and regimen; Z20.822 Contact with and (suspected) exposure to COVID-19
CPT/HCPCS: 80306; 81001; 82075; 87635; 96372; 99285

== ENCOUNTER 2022-03-13 12:53 | Inpatient (IN) | payer MEDICARE, MEDICAID ==
[2022-03-13] MEDS ORDERED: OLANZapine 10 MG VIAL IM STA (20:31)
--- NOTE | 2022-03-13 20:35 | ED ---
Disposition Clinical Impression: Acute psychosis Disposition: ADMITTED IP TO THIS [facility] Referrals: Selvin Beaver MD [Primary Care Provider] - 1-2 days Time of Disposition: 20:34 Procedures - Restraint - Face to Face Restraint Occurrence 1 Patient's Immediate Situation: Endangers self safety, Endangers staff safety Patient's Reaction to the Intervention: Uncooperative, Belligerent, Bizarre, Restless Patient's Medical & Behavioral Condition: Awake, Alert, Agitated, Bizarre behavior Need to Continue or Terminate Restraint or Seclusion: Continue Face to Face Eval of Restraint Date: 03/13/22 Face to Face Eval of Restraint Time: 20:21
[2022-03-13 21:39] LABS: Amphetamine Screen,Urine Not Detected (NotDetected); Barbiturate Screen,Urine Not Detected (NotDetected); Benzodiazepines Screen,Urine Detected (NotDetected); Cocaine Screen,Urine Not Detected (NotDetected); Methadone Screen, Urine Not Detected (NotDetected); Opiate Screen,Urine Not Detected (NotDetected); Oxycodone Screen, Urine Not Detected (NotDetected); Phencyclidine Screen,Urine Not Detected (NotDetected); Tricyclic Antidepressant,Urine Not Detected (NotDetected); Urn Cannabinoid Scrn Detected (NotDetected)
[2022-03-14 02:11] LABS: Amorphous Sediment,Urine Occasional /hpf; Appearance,Urine Turbid (Clear); Bacteria,Urine Occasional /hpf; Bilirubin,Urine Negative (Negative); Blood,Urine Negative (Negative); Color,Urine Yellow; Glucose,Urine (UA) Negative (Negative); Ketones,Urine 1+ (Negative); Leukocyte Esterase,Urine Negative (Negative); Mucus,Urine Many /hpf; Nitrite,Urine Negative (Negative); PH, Urine 5.5 (5.0-8.0); Protein,Urine Trace (Negative); Specific Gravity,Urine 1.027 (1.001-1.035); Urobilinogen,Urine <2.0 mg/dL (<2.0)
[2022-03-14] MEDS: chlorproMAZINE 25 MG/ML 2 ML AMP IM PRN (05:34)
[2022-03-14] MEDS: LORazepam 2 MG/ML INJ IM PRN (05:34)
--- NOTE | 2022-03-14 06:26 | P.PN ---
Progress Note - Text Progress Note Date: 03/14/22 notified 03/14/2022@0047: New Admit for H & P for Medical Follow Up. Pt currently mumbling, nonsensical, uncooperative. No acute medical issues.
[2022-03-14] MEDS: NICOTINE 14MG/24HR PATCH TRANSDERM SCH (13:38)
[2022-03-14] MEDS: ACETAMINOPHEN TAB 325 MG TAB PO PRN (13:57)
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
[2022-03-14] MEDS: LORazepam 1 MG TAB PO PRN (15:11)
[2022-03-14] MEDS: MAG HYDROX/AL HYDROX/SIMETH 30 ML CUP PO PRN (15:11)
[2022-03-14] MEDS: chlorproMAZINE 25 MG TAB PO PRN (15:33)
[2022-03-14] MEDS ORDERED: chlorproMAZINE 25 MG/ML 2 ML AMP IM STA (18:48)
[2022-03-14] MEDS ORDERED: LORazepam 1 MG TAB PO STA (18:50)
[2022-03-14] MEDS ORDERED: chlorproMAZINE 25 MG TAB PO STA (18:51)
--- NOTE | 2022-03-14 19:26 | P.MDCNMH ---
<Edvin Blank - Last Filed: 03/14/22 19:17> History of Present Illness H&P Date: 03/14/22 History of Presenting Illness: Patient is a 27-year-old male with a past medical history of polysubstance abuse and bipolar disorder. He is currently admitted to the inpatient mental health unit for psychosis. We have been consulted for continued medical management throughout patient's hospitalization. Patient was seen and fully evaluated at bedside and mental health unit.. Patient required repeated verbal stimulation to respond. Patient minimally cooperative and only answering some questions asked. Patient was medicated with Prolixin and Ativan prior to assessment. Patient confirms history of methamphetamine abuse and daily cannabis use. In addition patient reports daily nicotine use and occasional alcohol use. Patient denies any IV drug use. . He reports history of bipolar disorder otherwise denies having any previous medical history other than psychiatric diagnoses. Patient currently denies having any complaints of pain or discomfort including chest pain, abdominal pain, or shortness of breath. He denies any suicidal or homicidal ideations. Patient denies visual, tactile, or auditory hallucinations. Patient would drift off to sleep during conversation but again after repeated questions patient would respond. Patient was alert to Person, place, and time at time of assessment. Review of systems: Pertinent positives and negatives as discussed in HPI, a complete review of s ystems was performed and all other systems are negative. Physical exam: Vital signs reviewed and stable. General: Nontoxic, no distress and appears stated age. Derm: Skin warm and dry, normal coloration for ethnicity. Head: Atraumatic, normocephalic and symmetric. Eyes: EOMs intact, no lid lag, and anicteric sclera Mouth: no lip lesions, mucus membranes moist Cardiovascular: regular rate and rhythm with normal S1S2, no murmur, positive posterior tibial pulses bilaterally, and cap refill < 2 seconds. Lungs: Respirations even, regular, and unlabored on room air. Lungs CTA bilaterally, no rhonchi, no rales, no wheezing, and no accessory muscle usage. Abdominal: soft, nontender to palpation, no guarding, no appreciable organomegaly Ext: ROM intact. No gross muscle atrophy, no edema, no contractures Neuro: Speech clear, face symmetrical and CN II-XII grossly intact with no noted focal neuro deficits Psych: Alert and oriented to person, place, time, and situation. Withdrawn, sedated, slow to respond. Assessment and Plan of Care: Polysubstance abuse with methamphetamines, cannabis, and benzodiazepines -Recommend cessation of all nonprescription drug use. -UDS was positive for benzodiazepines and marijuana. Patient does have history of methamphetamine abuse. Nicotine dependence -Recommend smoking cessation. -Nicotine patch Psychosis Bipolar disorder -Management per primary admitting psychiatric team. -Safe and supportive care. Thank you for allowing us to participate in the care of this pleasant patient. Do not hesitate to contact us with questions. Someone can be reached from the [facility] hospitalist group all hours of the day at [phone] or via [employer]. Past Medical History Past Medical History: No Reported History Additional Past Medical History / Comment(s): he thinks that he may of have a seizure at that time per history-- Pt states that he has never been dx with seizure history. History of Any Multi-Drug Resistant Organisms: None Reported Past Surgical History: Orthopedic Surgery, Tonsillectomy Past Anesthesia/Blood Transfusion Reactions: No Reported Reaction Past Psychological History: Anxiety, Bipolar, Depression, Schizophrenia Smoking Status: Current every day smoker Past Alcohol Use History: None Reported Additional Past Alcohol Use History / Comment(s): Patient denies any current MJ, drug or alcohol use at this time. Past Drug Use History: Cocaine, Marijuana, Opiates - Past Family History Mother History Unknown: Yes Additional Family Medical History / Comment(s): Mother is alive with history of diabetes, hypertension, stroke, chronic back problems. Father Additional Family Medical History / Comment(s): Patient states he does not know his father but does know he has Hodgkin's lymphoma. Brother(s) Additional Family Medical History / Comment(s): Patient has 7/2 brothers and does not know any medical problems. Patient has 1 half-sister and he does not know her medical problems. Medications and Allergies Home Medications Medication Instructions Recorded Confirmed Type Pantoprazole [Protonix] 40 mg PO DAILY 03/13/22 03/14/22 History fluPHENAZine HCl 1 dose PO DIRECTED 03/13/22 03/14/22 History fluPHENAZine decanoate [Prolixin 25 mg IM Q28D 03/13/22 03/14/22 History Decanoate] Allergies Allergy/AdvReac Type Severity Reaction Status Date / Time cantaloupe Allergy Anaphylaxis Verified 03/14/22 00:26 clonazepam [From Klonopin] AdvReac Hallucinati Verified 03/14/22 00:26 ons Physical Exam Vitals: Vital Signs Temp Pulse Resp BP Pulse Ox 03/14/22 13:55 97.5 F L 113 H 20 140/81 03/14/22 00:47 97.1 F L 85 15 131/84 100 Intake and Output 03/14/22 03/14/22 03/14/22 06:59 14:59 22:59 Other: Weight 74.021 kg Cranial Nerve Examination - Cranial Nerves Cranial Nerve II- Optic: Intact Cranial Nerve III- Oculomotor: Intact Cranial Nerve IV- Trochlear: Intact Cranial Nerve V- Trigeminal: Intact Cranial Nerve - Abducens: Intact Cranial Nerve VII- Facial: Intact Cranial Nerve VIII- Auditory: Intact Cranial Nerve IX- Glossopharyngeal: Intact Cranial Nerve X- Vagus: Intact Cranial Nerve XI- Accessory: Intact Cranial Nerve XII- Hypoglossal: Intact Results Labs: Abnormal Lab Results - Last 24 Hours (Table) 03/13/22 03/14/22 Range/Units 15:30 00:00 Urine Protein Trace H (Negative) Urine Ketones 1+ H (Negative) Amorphous Sediment Occasional H (None) /hpf Urine Bacteria Occasional H (None) /hpf Urine Mucus Many H (None) /hpf U Benzodiazepines Scrn Detected H (NotDetected) U Marijuana (THC) Screen Detected H (NotDetected) <Dante Lin - Last Filed: 03/15/22 07:15> History of Present Illness I reviewed the documentation as provided by the JAMILA above, who is the original author of this note. I agree with the documented assessment and plan, with the following changes: none Physical Exam Osteopathic Statement: *. No significant issues noted on an osteopathic structural exam other than those noted in the History and Physical/Consult. Vitals: Vital Signs Temp Pulse Resp BP 03/14/22 18:56 83 16 125/83 03/14/22 13:55 97.5 F L 113 H 20 140/81
[2022-03-14] MEDS: DIVALPROEX ER 500 MG TAB.ER.24H PO SCH ×2 (20:09→23:11)
[2022-03-15] MEDS: NICOTINE 14MG/24HR PATCH TRANSDERM SCH ×2 (09:04→16:17)
[2022-03-15] MEDS ORDERED: fluPHENAZine DECANOATE 25 MG/ML 5ML MDV IM ONE (11:45)
[2022-03-15] MEDS ORDERED: chlorproMAZINE 25 MG/ML 2 ML AMP ONE (12:09)
[2022-03-15] MEDS ORDERED: LORazepam 2 MG/ML INJ ONE (12:10)
[2022-03-15] MEDS: chlorproMAZINE 25 MG/ML 2 ML AMP IM PRN (12:11)
[2022-03-15] MEDS: LORazepam 2 MG/ML INJ IM PRN (12:11)
--- NOTE | 2022-03-15 12:51 | P.PN ---
Progress Note - Text Progress Note Date: 03/15/22 Interval History: Patient was seen in bed resting and was directable and agreeable to speak with typewriter repairer in his room. Currently, the patient is denying any suicidal or homicidal ideation. However, the patient does report visual hallucinations of people around his room as well as paranoia that people are after him. He is denying any auditory hallucinations. He remains primarily isolative to himself in his room however has been up for meals. He denies any issues regarding his sleep or his appetite. He reports no significant side effects of his medication. He is agreeable to the transition to Invega Sustenna today. Mental Status Exam: General Appearance: Patient appears to be stated age is alert, directable, and cooperative. Behavior: Patient is calmly lying down in bed without any agitated behavior. Eye contact is poor. Speech: Patient's speech is fluent and nonpressured. Monotone. Normal psychomotor activity. Mood/Affect: Mood is "not good." affect is congruent and blunted. Suicidality/Homicidality: Patient denies having any suicidal or homicidal i deation intent or plan. Perceptions: Patient reports visual hallucinations but no auditory hallucinations. Though content/process: Patient endorses paranoid delusional thought content. Thought process is linear and logical. Memory and concentration: AOX3, grossly intact for the purposes of this session Judgment and insight: Improving mildly Vital Signs Temp 97.5 F L 03/14/22 13:55 Pulse 83 03/14/22 18:56 Resp 16 03/14/22 18:56 BP 125/83 03/14/22 18:56 Pulse Ox 100 03/14/22 00:47 FiO2 Assessment Schizoaffective disorder, depressive type Methamphetamine use disorder Antisocial personality disorder Plan: -Patient continues to meet criteria for inpatient psychiatric admission for symptom stabilization and safety. Patient has signed adult voluntary form and medication consent and was placed in patient's chart. -Medications: Continue Invega 6 mg by mouth at bedtime for mood stabilization/psychosis. We will start Invega Sustenna 234 mg IM today Catapres 0.2 mg by mouth 3 times a day for substance use disorder Gabapentin 400 mg by mouth 3 times a day for off label use for anxiety Melatonin 6 mg by mouth at bedtime for insomnia Zoloft 150 mg by mouth daily for depression/anxiety Trazodone 100 mg by mouth at bedtime for insomnia -When necessary Ativan for agitation/aggression. -NRT - nicotine patch -SW on board for discharge planning. Encouraged the patient to participate in milieu.
[2022-03-15] MEDS ORDERED: chlorproMAZINE 25 MG/ML 2 ML AMP IM PRN (12:56)
--- NOTE | 2022-03-15 12:57 | P.PN ---
Progress Note - Text Progress Note Date: 03/15/22 Interval History: The patient continues to display significant behaviors while admitted onto our psychiatric unit. The patient requires frequent redirection and his often attempted to leave the unit following the psychiatrists to the door. He has been noted to be put racing the board in the woods, slamming the phone, spilling water, and hitting a door on the unit. He has also been spitting and yelling stating that he needed to leave. He has been noted to be refusing medications and refusing redirection often requiring security to assist. Furthermore, the patient was noted to be intrusive with peers including being naked in another patient's room. The patient is currently denying any suicidal or homicidal ideation, intention, and/or plan. He is not reporting any auditory or visual hallucinations. He does endorse some paranoid and bizarre delusions. He is di sorganized during the psychiatric interview and very oppositional. Mental Status Exam: General Appearance: Patient appears to be stated age, with multiple tattoos, tamazight haircut. Not directable or cooperative. Behavior: Patient is calmly seated without any agitated behavior. Often pacing the hallway. Speech: Patient's speech is fluent and nonpressured. Mood/Affect: Mood is "annoyed" affect is irritable and labile. Unpredictable. Suicidality/Homicidality: Patient is currently denying any suicidal or homicidal ideation. Perceptions: Patient denies any visual hallucinations and denies any auditory hallucinations Though content/process: Some gross disorganization as well as paranoid delusional thought content is endorsed. Memory and concentration: AOX3, grossly intact for the purposes of this session Judgment and insight: Very poor Vital Signs Temp 97.5 F L 03/14/22 13:55 Pulse 83 03/14/22 18:56 Resp 16 03/14/22 18:56 BP 125/83 03/14/22 18:56 Pulse Ox 100 03/14/22 00:47 FiO2 Assessment Bipolar 1 disorder, manic episode, with psychotic features Cannabis use disorder Methamphetamine use disorder, as per history Stimulant use disorder, as per history Plan: -Patient continues to meet criteria for inpatient psychiatric admission for symptom stabilization and safety. Patient has been petitioned and certified. -Medications: As per patient request, we will administer Prolixin Decanoate 25 mg IM today. Continue Prolixin 5 mg by mouth twice a day for mood stabilization/psychosis Continue Depakote ER 1000 g by mouth at bedtime for mood stabilization -When necessary Thorazine, Benadryl and Ativan for agitation/aggression. -NRT - nicotine patch -SW on board for discharge planning. Encouraged the patient to participate in milieu.
[2022-03-15] MEDS: ACETAMINOPHEN TAB 325 MG TAB PO PRN (16:18)
[2022-03-15] MEDS: MAG HYDROX/AL HYDROX/SIMETH 30 ML CUP PO PRN (16:18)
[2022-03-15] MEDS: DIVALPROEX ER 500 MG TAB.ER.24H PO SCH (21:09)
[2022-03-16] MEDS: LORazepam 2 MG/ML INJ IM PRN (01:54)
[2022-03-16] MEDS: diphenhydrAMINE 50 MG/ML 1 ML VIAL IM PRN ×3 (02:40→21:58)
[2022-03-16] MEDS: NICOTINE 14MG/24HR PATCH TRANSDERM SCH (09:04)
[2022-03-16] MEDS: chlorproMAZINE 25 MG TAB PO PRN ×2 (09:05→12:21)
[2022-03-16] MEDS: LORazepam 1 MG TAB PO PRN ×3 (09:05→21:24)
--- NOTE | 2022-03-16 12:45 | P.PN ---
Progress Note - Text Progress Note Date: 03/16/22 Interval History: The patient continues to be disruptive with staff and peers. However, the patient is much more linear and logical conversation today. He is currently denying any suicidal or homicidal ideation, intention, and/or plan. He is denying any auditory or visual hallucinations. He denies any paranoia or other delusions. He has not been in adherent with his Depakote however has been taking his Prolixin willingly and received Prolixin Decanoate yesterday. He is not reporting any significant side effects. He reports that Depakote caused him to have a "lump on my breast." He does express elevated anxiety. He reports that he would like to continue taking BuSpar. Mental Status Exam: General Appearance: Patient appears to be stated age, with multiple tattoos, thai haircut. Difficult to direct and intermittently cooperative. Behavior: Patient is displays psychomotor agitation.. Often pacing the hallway. Speech: Patient's speech is fluent and nonpressured. Mood/Affect: Mood is "I want your shoes" affect is labile. Unpredictable. Suicidality/Homicidality: Patient is currently denying any suicidal or homicidal ideation. Perceptions: Patient denies any visual hallucinations and denies any auditory hallucinations Though content/process: Linear and logical and goal-directed. Oppositional. Memory and concentration: AOX3, grossly intact for the purposes of this session Judgment and insight: Poor Impulse control and frustration tolerance is poor. Assessment Bipolar 1 disorder, manic episode, with psychotic features Cannabis use disorder Methamphetamine use disorder, as per history Stimulant use disorder, as per history Plan: -Patient continues to meet criteria for inpatient psychiatric admission for symptom stabilization and safety. Patient has been petitioned and certified. He is scheduled for deferral on saturday. -Medications: Prolixin Decanoate 25 mg IM was administered yesterday. Continue Prolixin 5 mg by mouth twice a day for mood stabilization/psychosis Discontinue Depakote. Start BuSpar 15 mg by mouth 3 times a day for anxiety -When necessary Thorazine, Benadryl and Ativan for agitation/aggression. -NRT - nicotine patch -SW on board for discharge planning. Encouraged the patient to participate in milieu.
[2022-03-16] MEDS: ACETAMINOPHEN TAB 325 MG TAB PO PRN ×2 (14:11→21:52)
[2022-03-16] MEDS ORDERED: chlorproMAZINE 25 MG/ML 2 ML AMP IM ONE (15:16)
[2022-03-16] MEDS: busPIRone HCl 5 MG TAB PO SCH ×2 (15:23→21:04)
[2022-03-16] MEDS ORDERED: LORazepam 2 MG/ML INJ IM STA (16:54)
[2022-03-16] MEDS: MAG HYDROX/AL HYDROX/SIMETH 30 ML CUP PO PRN (21:54)
[2022-03-16] MEDS: MAGNESIUM HYDROXIDE 2,400 MG/10 ML CUP PO PRN (21:54)
[2022-03-17] MEDS: busPIRone HCl 5 MG TAB PO SCH ×3 (08:14→20:53)
[2022-03-17] MEDS: NICOTINE 14MG/24HR PATCH TRANSDERM SCH (08:15)
[2022-03-17] MEDS ORDERED: chlorproMAZINE 25 MG/ML 1 ML AMP IM PRN (09:37)
[2022-03-17] MEDS ORDERED: LORazepam 2 MG/ML INJ IM PRN (10:03)
[2022-03-17] MEDS: LORazepam 1 MG TAB PO PRN ×2 (14:52→20:53)
--- NOTE | 2022-03-17 20:12 | P.PN ---
Progress Note - Text Progress Note Date: 03/17/22 Interval history: Patient was seen multiple times today since he continues to be somewhat intrusive and demanding. He required an Ativan 2 mg po x 1 this afternoon for anxiety. On re-evaluation this evening he is calmer and more cooperative. He denies any immediate concerns but continues to be discharge focused. At this time, patient denies any suicidal or homicidal ideation, intent or plan. Denies any auditory or visual hallucinations. Patient denies any side effects from the medications and has been compliant with meds. Mental status exam: General Appearance: Patient appears to be stated age, tattoos, nails painted. Behavior: Patient is calm without any agitated behavior currently but has spent most of the day as intrusive and demanding. Speech: Patient's speech is fluent and non-pressured. Mood/Affect: Patient reports their mood is "good", affect is congruent and euthymic. Suicidality/Homicidality: Patient denies having any homicidal ideation intent or plan. He denies any suicidal ideations, intent or plan. Perceptions: Patient denies any visual hallucinations and denies any auditory hallucinations. Though content/process: There is no evidence of any delusional thought content and thought process is linear and goal-directed. Memory and concentration: AOX3, grossly intact for the purposes of this session. Judgment and insight: improving Assessment/Plan: Continue with current diagnosis. Patient continues to meet criteria for inpatient psychiatric admission for symptom stabilization and safety. Patient will be maintained on current psychotropic medication regimen. Monitor for medication compliance and for any psychotropic medication side effects. Will continue to monitor ongoing response to treatment. Encouraged participation in milieu.
[2022-03-17] MEDS: chlorproMAZINE 25 MG TAB PO PRN (20:53)
[2022-03-17] MEDS: NICOTINE GUM (POLACRILEX) 2 MG GUM BUCCAL PRN (21:13)
[2022-03-17] MEDS: MAG HYDROX/AL HYDROX/SIMETH 30 ML CUP PO PRN (23:45)
[2022-03-18] MEDS: ACETAMINOPHEN TAB 325 MG TAB PO PRN ×3 (00:55→12:42)
[2022-03-18] MEDS: NICOTINE GUM (POLACRILEX) 2 MG GUM BUCCAL PRN ×4 (00:55→20:52)
[2022-03-18] MEDS: LORazepam 1 MG TAB PO PRN ×3 (06:44→20:51)
[2022-03-18] MEDS: NICOTINE 14MG/24HR PATCH TRANSDERM SCH ×2 (08:45→11:18)
[2022-03-18] MEDS: busPIRone HCl 5 MG TAB PO SCH ×3 (08:46→21:11)
[2022-03-18] MEDS: NICOTINE 21MG/24HR PATCH TRANSDERM SCH (11:17)
[2022-03-18] MEDS: chlorproMAZINE 25 MG TAB PO PRN ×2 (12:18→20:51)
--- NOTE | 2022-03-18 12:53 | P.PN ---
Progress Note - Text Progress Note Date: 03/18/22 Interval history: Patient was seen in the hallway and requested to be seen by this newspaper writer. He continues to be intrusive and demanding, but mildly calmer than previous days. He required an Ativan 2 mg po x 1 and Thorazine 50 mg po x 1 today around mid- day for what he describes as "anxiety". He continues to be discharge focused and requests he be prescribed Ativan and Thorazine on discharge. He states he wants to sign a deferral tomorrow without being seen by the roof bolter operator so it doesn't delay his discharge. He was directed to discuss these concerns with his primary team tomorrow. At this time, patient denies any suicidal or homicidal ideation, intent or plan. Denies any auditory or visual hallucinations. Patient denies any side effects from the medications and has been compliant with meds. Mental status exam: General Appearance: Patient appears to be stated age, tattoos, nails painted. Behavior: Patient is currently calm without any agitated behavior currently but has spent most of the day as intrusive and demanding. Speech: Patient's speech is fluent and non-pressured. Mood/Affect: Patient reports their mood is "good", affect is congruent and euthymic. Suicidality/Homicidality: Patient denies having any homicidal ideation intent or plan. He denies any suicidal ideations, intent or plan. Perceptions: Patient denies any visual hallucinations and denies any auditory hallucinations. Though content/process: There is no evidence of any delusional thought content and thought process is linear and goal-directed. Memory and concentration: AOX3, grossly intact for the purposes of this session. Judgment and insight: improving Assessment/Plan: Continue with current diagnosis. Patient continues to meet criteria for inpatient psychiatric admission for symptom stabilization and safety. Patient will be maintained on current psychotropic medication regimen. Monitor for medication compliance and for any psychotropic medication side effects. Will continue to monitor ongoing response to treatment. Encouraged participation in milieu.
[2022-03-18] MEDS ORDERED: IBUPROFEN 400 MG TAB PO PRN (14:28)
[2022-03-18] MEDS ORDERED: BENZOCAINE 20 % GEL 11.9 GM TUBE MM PRN (14:28)
[2022-03-18] MEDS: MAG HYDROX/AL HYDROX/SIMETH 30 ML CUP PO PRN (15:50)
[2022-03-18] MEDS: MAGNESIUM HYDROXIDE 2,400 MG/10 ML CUP PO PRN (21:56)
[2022-03-19 00:39] VITALS: RESP 18; TEMP 97.8
[2022-03-19] MEDS: NICOTINE 21MG/24HR PATCH TRANSDERM SCH (08:15)
[2022-03-19] MEDS: busPIRone HCl 5 MG TAB PO SCH (08:16)
[2022-03-19] MEDS: NICOTINE GUM (POLACRILEX) 2 MG GUM BUCCAL PRN (08:16)
[2022-03-19] MEDS: LORazepam 1 MG TAB PO PRN (08:18)
[2022-03-19 09:54] VITALS: BP 144/78; PULSE 118
--- NOTE | 2022-03-19 11:50 | P.DS ---
Providers Date of admission: 03/13/22 23:44 Expected date of discharge: 03/19/22 Attending physician: Miller Yap MD Consults: 03/14/22 00:04 Consult Physician Routine Consulting Provider: Quentin Gómez Consult Reason/Comments: H&P and medical Do you want consulting provider notified?: Yes Primary care physician: Selvin Beaver - Discharge Diagnosis(es) (1) Bipolar I, recurrent manic episode, severe with psychotic behavior Current Visit: Yes Status: Acute Priority: High (2) Cocaine use disorder Current Visit: Yes Status: Chronic Priority: Medium (3) Cluster B personality disorder in adult Current Visit: Yes Status: Acute Priority: High Hospital Course: Admission HPI: Patient is a , unemployed, 27-year-old male with significant history of polysubstance abuse and bipolar disorder who presents to the hospital for acute psychosis. HPI: Patient presented to the hospital on 03/13/2022, brought in by family for psychotic behavior. The patient required 4 point restraints in the ED after multiple attempts at eloping. The patient was mostly nonsensical during the initial psychiatric evaluation in the emergency department. He was oppositional and refused to answer questions clearly. He would at times report grandiose statements. The patient was petitioned and certified and transferred to the psychiatric unit. As per petition by the patient's mother, "the patient attempted to hang himself while he was at rehab. He was transferred to the behavioral health unit in [place] where he was discharged back to [place]. He was again sent to the hospital because he was acting bizarrely including being combative and showering with clothes on. He was also noted to be very intrusive with other peers. The patient expressed relief that he is a werewolf. He has been incapable of caring for himself." The patient is also reportedly nonadherent with his medications. Upon evaluation on her psychiatric unit, the patient is currently sedated after the patient is noted to be agitated and intrusive with staff and peers. He entered multiple patient's rooms and was difficult to redirect. He was noted by staff to have spat on the nurse. He was administered Thorazine and Ativan for agitation. Second clinical certificate was filled out. The patient has had numerous inpatient psychiatric hospitalizations, including 8 in our facility over the last few years. He is currently enrolled with [facility]. He was previously in our psychiatric unit in December 2020. The patient was reportedly receiving Prolixin decanoate 25 mg IM every 28 days. He is currently not under any court order. Hospital course: Upon admission to the unit patient was initially uncooperative and unwilling to speak with this provider. The patient was petitioned and certified and a second clinical certificate was filled out by this provider. When the patient initially awoke and was able to step out of his room, patient was noted to be disruptive in the milieu and requiring multiple administrations of IM medications in order to calm him down. He was difficult to direct and was intrusive with staff and peers. However, once the patient began taking the Prolixin regularly and transition back to Prolixin Decanoate, the patient spiked a significant improvement in regards to his target symptoms of psychosis. He became more directable, cooperative, and slept and ate regularly. He no longer required as many administrations of Thorazine for behaviors. The patient displayed gradual but significant improvement in regards to his target symptoms of addi and psychosis. The patient also reported that he would defer mental health Court. He was adherent with his medications and reported no significant side effects. On the day of discharge, the patient is not reporting any suicidal or homicidal ideation, intention, and/or plan. He is not reporting any auditory or visual hallucinations. He is denying any paranoia or other delusions. The patient has been adherent to medication is not reporting any significant side effects at this time. The patient denies any access to firearms other weapons. Patient was counseled at length on importance of medication adherence appropriate outpatient follow-up. The patient was also counseled on his substance use and was encouraged to abstain from all substances including alcohol and marijuana. He was offered however declined inpatient substance-abuse rehabilitation. The patient deferred mental health court. Prior to discharge, family meeting will be arranged by social media job titles to answer any questions and ensure safety. He reports no medical issues or concerns. He denies any chest pain, SOB, palpitations, or muscle tightness. Mental status exam: General Appearance: Patient appears to be stated age is alert, pleasant, and cooperative. Patient is in no acute distress and has fair hygiene and grooming. The patient has multiple tattoos and a spanish haircut. Behavior: Patient is calmly seated without any agitated behavior. Speech: Patient's speech is fluent and nonpressured. Mood/Affect: Patient reports their mood is "much better", affect is congruent and euthymic to expansive. Suicidality/Homicidality: Patient denies having any suicidal or homicidal ideation intent or plan. Perceptions: Patient denies any auditory or visual hallucinations. Though content/process: There is no evidence of any delusional thought content and thought process is linear and goal-directed. Patient is future oriented. Memory and concentration: AOX3, grossly intact for the purposes of this session. Can spell "WORLD" backwards correctly. Judgment and insight: Improved with guarded prognosis Impression: Bipolar 1 disorder, manic episode, with psychotic features Cannabis use disorder Cluster B Personality Disorder Plan: -Continue with discharge today as patient has improved and stabilized psychiatrically and is not currently an imminent threat to himself and/or others. Patient will remain at chronically elevated risk for harm to self and/or others due to his impulsivity and history of polysubstance abuse. -Continue medications: Prolixin 5 mg by mouth twice a day for mood stabilization/psychosis BuSpar 15 mg by mouth 3 times a day for anxiety Nicorette gum for nicotine cravings Prolixin decanoate 25 mg IM was administered on 03/15/2022. Next dose is due on 04/12/2022. -Patient was counseled on the need for medication compliance and appropriate follow-up at mental health and also primary care for medical issues. Patient verbalized understanding and agreed. -Social work to arrange for and conduct family meeting to ensure safety upon discharge and answer any questions/concerns. Social work also to arrange for patients follow up appointments with [facility] for psychiatric care along with follow up with primary care provider. -Patient counseled on abstaining from recreational drugs and marijuana and alcohol. Was informed/educated on the adverse effects on their physical and mental health. Patient verbally agreed and understood. Patient was offered substance abuse treatment however declined at this time. -Patient was instructed to return to the hospital or seek immediate medical care if their psychiatric or medical symptoms do worsen or reoccur. -Psychoeducation and supportive therapy provided to patient. Risks and benefits of pharmacological treatment versus the risks and benefits of nontreatment weight and discussed. Informed consent discussion held. Common side effects of psychotropics discussed such as, but not limited to headache, GI disturbance, sexual dysfunction, movement disorders, sedation, and orthostatic hypotension. Life threatening and blackbox warnings of prescribed medications also discussed. Potential risks of operating a vehicle or heavy machinery discussed with patient at length. Advised on importance of compliance and a reliable and responsible manner. Patient advised to review FDA consumer labeling of all medications prior to taking. Patient verbalized understanding of potential risks, and agrees with current treatment plan. Patient advised to medically contact physician/emergency personnel if any acute changes in condition occur. Vital Signs Temp 97.8 F 03/19/22 00:38 Pulse 118 H 03/19/22 09:53 Resp 18 03/19/22 00:38 BP 144/78 03/19/22 09:53 Pulse Ox 97 03/17/22 05:58 FiO2 Laboratory Results Urine Color Yellow 03/14/22 00:00 Urine Appearance Turbid (Clear) 03/14/22 00:00 Urine pH 5.5 (5.0-8.0) 03/14/22 00:00 Ur Specific [place] 1.027 (1.001-1.035) 03/14/22 00:00 Urine Protein Trace (Negative) H 03/14/22 00:00 Urine Glucose (UA) Negative (Negative) 03/14/22 00:00 Urine Ketones 1+ (Negative) H 03/14/22 00:00 Urine Blood Negative (Negative) 03/14/22 00:00 Urine Nitrite Negative (Negative) 03/14/22 00:00 Urine Bilirubin Negative (Negative) 03/14/22 00:00 Urine Urobilinogen <2.0 mg/dL (<2.0) 03/14/22 00:00 Ur Leukocyte Esterase Negative (Negative) 03/14/22 00:00 Amorphous Sediment Occasional /hpf (None) H 03/14/22 00:00 Urine Bacteria Occasional /hpf (None) H 03/14/22 00:00 Urine Mucus Many /hpf (None) H 03/14/22 00:00 Urine Opiates Screen Not Detected (NotDetected) 03/13/22 15:30 Ur Oxycodone Screen Not Detected (NotDetected) 03/13/22 15:30 Urine Methadone Screen Not Detected (NotDetected) 03/13/22 15:30 Ur Propoxyphene Screen Not Detected (NotDetected) 03/13/22 15:30 Ur Barbiturates Screen Not Detected (NotDetected) 03/13/22 15:30 U Tricyclic Antidepress Not Detected (NotDetected) 03/13/22 15:30 Ur Phencyclidine Scrn Not Detected (NotDetected) 03/13/22 15:30 Ur Amphetamines Screen Not Detected (NotDetected) 03/13/22 15:30 U Methamphetamines Scrn Not Detected (NotDetected) 03/13/22 15:30 U Benzodiazepines Scrn Detected (NotDetected) H 03/13/22 15:30 Urine Cocaine Screen Not Detected (NotDetected) 03/13/22 15:30 U Marijuana (THC) Screen Detected (NotDetected) H 03/13/22 15:30 Coronavirus (PCR) Not Detected (Not Detectd) 03/13/22 21:53 Allergies Allergy/AdvReac Type Severity Reaction Status Date / Time cantaloupe Allergy Anaphylaxis Verified 03/14/22 00:26 clonazepam [From Klonopin] AdvReac Hallucinati Verified 03/14/22 00:26 ons Patient Condition at Discharge: Stable Plan - Discharge Summary New Discharge Prescriptions: New fluPHENAZine [Prolixin] 5 mg PO BID 30 Days tab busPIRone HCl [Buspar] 15 mg PO TID 30 Days tab Nicotine Gum (Polacrilex) [Nicorette] 2 mg BUCCAL Q4HR PRN 30 Days pieceofgum PRN Reason: Nicotine Cravings Continue Pantoprazole [Protonix] 40 mg PO DAILY Changed fluPHENAZine decanoate [Prolixin Decanoate] 25 mg IM Q28D #1 ml Discontinued fluPHENAZine HCl 1 dose PO DIRECTED Discharge Medication List Pantoprazole [Protonix] 40 mg PO DAILY 03/13/22 [History] Nicotine Gum (Polacrilex) [Nicorette] 2 mg BUCCAL Q4HR PRN 30 Days pieceofgum 03/19/22 [Rx] busPIRone HCl [Buspar] 15 mg PO TID 30 Days tab 03/19/22 [Rx] fluPHENAZine [Prolixin] 5 mg PO BID 30 Days tab 03/19/22 [Rx] fluPHENAZine decanoate [Prolixin Decanoate] 25 mg IM Q28D #1 ml 03/19/22 [Rx] Follow up Appointment(s)/Referral(s): [facility] [Outside] - 03/21/22 11:00 am (03-21-22 at 11:00 with Florence Dow 03-27-22 at 2:00 with Selvin He MD [Primary Care Provider] - 1-2 days Patient Instructions/Handouts: How to Stop Smoking (DC), Stress (DC), Bipolar Disorder (DC), Cannabis Abuse (DC) Activity/Diet/Wound Care/Special Instructions: Avoid the use of street drugs and alcohol. Take all prescriptions as prescribed. When you are in need of refills on your medications, please contact your medical provider and/or outpatient psychiatrist to have this done. Please go to scheduled outpatient appointment for aftercare treatment. If symptoms return or become worse, call the crisis line at and/or go to the nearest emergency room for evaluation. Discharge Disposition: HOME SELF-CARE
== END 2022-03-19 15:09 | disposition home or self-care (01) | DRG 885 ==
LOC: EC 12:53 → UNDOADMIN 23:44 → 3MHU 23:44 → UNDODISIN 03-19 15:09
PROVIDERS: ADMIT Psychiatry & Neurology Psychiatry; ATTEND Psychiatry & Neurology Psychiatry
DX: F31.89 Other bipolar disorder (principal); F14.90 Cocaine use, unspecified, uncomplicated; F12.90 Cannabis use, unspecified, uncomplicated; F15.90 Other stimulant use, unspecified, uncomplicated; F25.1 Schizoaffective disorder, depressive type; F41.9 Anxiety disorder, unspecified; F60.2 Antisocial personality disorder; F60.89 Other specific personality disorders; Z59.00 Homelessness unspecified; Z78.1 Physical restraint status; Z20.822 Contact with and (suspected) exposure to COVID-19
CPT/HCPCS: 80306; 81001; 87635; 96361; 96372; 96374; 96375; 99284; 99285

== ENCOUNTER 2022-09-21 14:26 | Emergency (ER) | payer MEDICARE, OTHER ==
[2022-09-21 14:46] VITALS: RESP 18
[2022-09-21 15:31] VITALS: TEMP 98
--- NOTE | 2022-09-21 16:26 | ED ---
Psych HPI - General Chief Complaint: Psychiatric Symptoms Stated Complaint: Psych Eval Time Seen by Provider: 09/21/22 15:09 Source: patient Mode of arrival: EMS - History of Present Illness MD Complaint: other -: days(s) Associated Psychiatric Symptoms: racing thoughts, auditory hallucinations Quality: getting worse Improves With: none Worsens With: none Associated Symptoms: denies other symptoms - Related Data Home Medications Medication Instructions Recorded Confirmed fluPHENAZine HCl 20 mg PO BID 09/21/22 09/21/22 fluPHENAZine decanoate [Prolixin 50 mg IM Q28D 09/21/22 09/21/22 Decanoate] Allergies Allergy/AdvReac Type Severity Reaction Status Date / Time cantaloupe Allergy Anaphylaxis Verified 09/21/22 17:49 shellfish derived [Crab] Allergy Unknown Verified 09/22/22 22:22 clonazepam [From Klonopin] AdvReac Hallucinati Verified 09/21/22 17:49 ons Review of Systems ROS Statement: Those systems with pertinent positive or pertinent negative responses have been documented in the HPI. ROS Other: All systems not noted in ROS Statement are negative. Constitutional: Denies: fever, chills Respiratory: Denies: cough, dyspnea Cardiovascular: Denies: chest pain, palpitations Gastrointestinal: Denies: abdominal pain, vomiting, diarrhea Genitourinary: Denies: dysuria, hematuria Musculoskeletal: Denies: back pain Skin: Denies: rash Neurological: Denies: headache Psychiatric: Reports: anxiety, auditory hallucinations. Denies: visual orona llucinations, homicidal thoughts Past Medical History Past Medical History: No Reported History Additional Past Medical History / Comment(s): he thinks that he may of have a seizure at that time per history-- Pt states that he has never been dx with seizure history. History of Any Multi-Drug Resistant Organisms: None Reported Past Surgical History: Orthopedic Surgery, Tonsillectomy Past Anesthesia/Blood Transfusion Reactions: No Reported Reaction Past Psychological History: Anxiety, Bipolar, Depression, Schizophrenia Smoking Status: Current every day smoker Past Alcohol Use History: None Reported Past Drug Use History: Cocaine, Marijuana, Opiates - Past Family History Mother History Unknown: Yes Additional Family Medical History / Comment(s): Mother is alive with history of diabetes, hypertension, stroke, chronic back problems. Father Additional Family Medical History / Comment(s): Patient states he does not know his father but does know he has Hodgkin's lymphoma. Brother(s) Additional Family Medical History / Comment(s): Patient has 7/2 brothers and does not know any medical problems. Patient has 1 half-sister and he does not know her medical problems. General Exam Limitations: no limitations General appearance: alert, in no apparent distress Head exam: Present: atraumatic, normocephalic Eye exam: Present: normal appearance. Absent: scleral icterus, conjunctival injection Neck exam: Present: normal inspection Respiratory exam: Present: normal lung sounds bilaterally. Absent: respiratory distress, wheezes, rales, rhonchi, stridor Cardiovascular Exam: Present: regular rate, normal rhythm, normal heart sounds. Absent: systolic murmur, diastolic murmur, rubs, gallop GI/Abdominal exam: Present: soft. Absent: distended, tenderness, guarding, rebound, rigid, mass Extremities exam: Present: normal inspection, normal capillary refill. Absent: pedal edema, calf tenderness Back exam: Present: normal inspection. Absent: CVA tenderness (R), CVA tenderness (L) Neurological exam: Present: alert Psychiatric exam: Present: anxious, manic. Absent: agitated, flat affect, homi cidal ideation, suicidal ideation Skin exam: Present: warm, dry, intact, normal color. Absent: rash Course Vital Signs 09/21/22 09/21/22 09/21/22 14:30 15:30 21:59 Temperature 98.2 F 98.0 F Pulse Rate 72 94 90 Respiratory 18 18 18 Rate Blood Pressure 120/72 132/72 130/70 O2 Sat by Pulse 99 95 99 Oximetry Medical Decision Making - Medical Decision Making This patient is 27-year-old man in with racing thoughts and some anxiety. The patient had been noncompliant with medications. He was medically cleared and seen by EPS. The patient then agreed to take his psychiatric medication and after discussion with the psychiatrist they feel he is safe to continue as outpatient. We discussed the safety plan and the patient will return if there is any problem. Was pt. sent in by a medical professional or institution (, PA, FARM MACHINERY ERECTOR, urgent care, hospital, or long-term...) When possible be specific @ -[No] Did you speak to anyone other than the patient for history (EMS, parent, family, police, friend...)? What history was obtained from this source @ -[No] Did you review nursing and triage notes (agree or disagree)? Why? @ -[I reviewed and agree with nursing and triage notes] Were old charts reviewed (outside hosp., previous admission, EMS record, old EKG, old radiological studies, urgent care reports/EKG's, long-term records)? Report findings @ -[No old charts were reviewed] Differential Diagnosis (chest pain, altered mental status, abdominal pain women, abdominal pain men, vaginal bleeding, weakness, fever, dyspnea, syncope, headache, dizziness, GI bleed, back pain, seizure, CVA, palpatations, mental health, musculoskeletal)? @ -[not applicable] EKG interpreted by me (3pts min.). @ -[ X-rays interpreted by me (1pt min.). @ -[None done] CT interpreted by me (1pt min.). @ -[None done] U/S interpreted by me (1pt. min.). @ -[None done] What testing was considered but not performed or refused? (CT, X-rays, U/S, labs)? Why? @ -[None] What meds were considered but not given or refused? Why? @ -[None] Did you discuss the management of the patient with other professionals (professionals i.e. , PA, FARM MACHINERY ERECTOR, lab, RT, psych nurse, social science instructor, digital account supervisor, teacher, accounting officer, manager case management)? Give summary @ -[EPS nurse Was smoking cessation discussed for >3mins.? @ -[No] Was critical care preformed (if so, how long)? @ -[No] Were there social determinants of health that impacted care today? How? (Homelessness, low income, unemployed, alcoholism, drug addiction, transpo rtation, low edu. Level, literacy, decrease access to med. care, [facility], rehab)? @ -[No] Was there de-escalation of care discussed even if they declined (Discuss DNR or withdrawal of care, Hospice)? DNR status @ -[No] What co-morbidities impacted this encounter? (DM, HTN, Smoking, COPD, CAD, Cancer, CVA, ARF, Chemo, Hep., AIDS, mental health diagnosis, sleep apnea, morbid obesity)? @ -[None] Was patient admitted / discharged? Hospital course, mention meds given and route, prescriptions, significant lab abnormalities, going to OR and other pertinent info. @ -[Discharged Undiagnosed new problem with uncertain prognosis? @ -[No] Drug Therapy requiring intensive monitoring for toxicity (Heparin, Nitro, Ins ulin, Cardizem)? @ -[No] Were any procedures done? @ -[No] Diagnosis/symptom? @ -[Acute psychosis Acute, or Chronic, or Acute on Chronic? @ -[Acute on chronic Uncomplicated (without systemic symptoms) or Complicated (systemic symptoms)? @ -[Uncomplicated Side effects of treatment? @ -[No] Exacerbation, Progression, or Severe Exacerbation? @ -[Mild exacerbation Poses a threat to life or bodily function? How? (Chest pain, USA, VT, pneumonia, PE, COPD, DKA, ARF, appy, cholecystitis, CVA, Diverticulitis, Homicidal, Suicidal, threat to staff... and all critical care pts) @ -[No] - Lab Data Result diagrams: 09/21/22 18:12 09/21/22 18:12 Lab Results 09/21/22 09/21/22 09/21/22 Range/Units 18:12 18:12 18:12 WBC 7.7 (3.8-10.6) k/uL RBC 5.23 (4.30-5.90) m/uL Hgb 15.1 (13.0-17.5) gm/dL Hct 45.3 (39.0-53.0) % MCV 86.7 (80.0-100.0) fL MCH 28.9 (25.0-35.0) pg MCHC 33.3 (31.0-37.0) g/dL RDW 12.8 (11.5-15.5) % Plt Count 203 (150-450) k/uL MPV 7.7 Neutrophils % 57 % Lymphocytes % 33 % Monocytes % 7 % Eosinophils % 1 % Basophils % 0 % Neutrophils # 4.4 (1.3-7.7) k/uL Lymphocytes # 2.6 (1.0-4.8) k/uL Monocytes # 0.5 (0-1.0) k/uL Eosinophils # 0.1 (0-0.7) k/uL Basophils # 0.0 (0-0.2) k/uL Sodium 140 (137-145) mmol/L Potassium 4.0 (3.5-5.1) mmol/L Chloride 103 (98-107) mmol/L Carbon Dioxide 29 (22-30) mmol/L Anion Gap 8 mmol/L BUN 12 (9-20) mg/dL Creatinine 0.80 (0.66-1.25) mg/dL Est GFR (CKD-EPI)AfAm >90 (>60 ml/min/1.73 sqM) Est GFR (CKD-EPI)NonAf >90 (>60 ml/min/1.73 sqM) Glucose 83 (74-99) mg/dL Calcium 9.7 (8.4-10.2) mg/dL Total Bilirubin 1.3 (0.2-1.3) mg/dL AST 25 (17-59) U/L ALT 21 (4-49) U/L Alkaline Phosphatase 64 (38-126) U/L Total Protein 8.7 H (6.3-8.2) g/dL Albumin 5.2 H (3.5-5.0) g/dL Urine Color Yellow Urine Appearance Cloudy (Clear) Urine pH 8.0 (5.0-8.0) Ur Specific [place] 1.015 (1.001-1.035) Urine Protein Negative (Negative) Urine Glucose (UA) Negative (Negative) Urine Ketones Negative (Negative) Urine Blood Negative (Negative) Urine Nitrite Negative (Negative) Urine Bilirubin Negative (Negative) Urine Urobilinogen 2.0 (<2.0) mg/dL Ur Leukocyte Esterase Negative (Negative) Urine WBC <1 (0-5) /hpf Amorphous Sediment Few H (None) /hpf Urine Opiates Screen (NotDetected) Ur Oxycodone Screen (NotDetected) Urine Methadone Screen (NotDetected) Ur Propoxyphene Screen (NotDetected) Ur Barbiturates Screen (NotDetected) U Tricyclic Antidepress (NotDetected) Ur Phencyclidine Scrn (NotDetected) Ur Amphetamines Screen (NotDetected) U Methamphetamines Scrn (NotDetected) U Benzodiazepines Scrn (NotDetected) Urine Cocaine Screen (NotDetected) U Marijuana (THC) Screen (NotDetected) Coronavirus (PCR) (Not Detectd) 09/21/22 09/21/22 Range/Units 18:12 18:20 WBC (3.8-10.6) k/uL RBC (4.30-5.90) m/uL Hgb (13.0-17.5) gm/dL Hct (39.0-53.0) % MCV (80.0-100.0) fL MCH (25.0-35.0) pg MCHC (31.0-37.0) g/dL RDW (11.5-15.5) % Plt Count (150-450) k/uL MPV Neutrophils % % Lymphocytes % % Monocytes % % Eosinophils % % Basophils % % Neutrophils # (1.3-7.7) k/uL Lymphocytes # (1.0-4.8) k/uL Monocytes # (0-1.0) k/uL Eosinophils # (0-0.7) k/uL Basophils # (0-0.2) k/uL Sodium (137-145) mmol/L Potassium (3.5-5.1) mmol/L Chloride (98-107) mmol/L Carbon Dioxide (22-30) mmol/L Anion Gap mmol/L BUN (9-20) mg/dL Creatinine (0.66-1.25) mg/dL Est GFR (CKD-EPI)AfAm (>60 ml/min/1.73 sqM) Est GFR (CKD-EPI)NonAf (>60 ml/min/1.73 sqM) Glucose (74-99) mg/dL Calcium (8.4-10.2) mg/dL Total Bilirubin (0.2-1.3) mg/dL AST (17-59) U/L ALT (4-49) U/L Alkaline Phosphatase (38-126) U/L Total Protein (6.3-8.2) g/dL Albumin (3.5-5.0) g/dL Urine Color Urine Appearance (Clear) Urine pH (5.0-8.0) Ur Specific [place] (1.001-1.035) Urine Protein (Negative) Urine Glucose (UA) (Negative) Urine Ketones (Negative) Urine Blood (Negative) Urine Nitrite (Negative) Urine Bilirubin (Negative) Urine Urobilinogen (<2.0) mg/dL Ur Leukocyte Esterase (Negative) Urine WBC (0-5) /hpf Amorphous Sediment (None) /hpf Urine Opiates Screen Not Detected (NotDetected) Ur Oxycodone Screen Not Detected (NotDetected) Urine Methadone Screen Not Detected (NotDetected) Ur Propoxyphene Screen Not Detected (NotDetected) Ur Barbiturates Screen Not Detected (NotDetected) U Tricyclic Antidepress Not Detected (NotDetected) Ur Phencyclidine Scrn Not Detected (NotDetected) Ur Amphetamines Screen Not Detected (NotDetected) U Methamphetamines Scrn Not Detected (NotDetected) U Benzodiazepines Scrn Not Detected (NotDetected) Urine Cocaine Screen Not Detected (NotDetected) U Marijuana (THC) Screen Detected H (NotDetected) Coronavirus (PCR) Not Detected (Not Detectd) Disposition Clinical Impression: Psychosis Disposition: HOME SELF-CARE Condition: Good Instructions (If sedation given, give patient instructions): Schizophrenia (ED) Is patient prescribed a controlled substance at d/c from ED?: No Referrals: Selvin Beaver MD [Primary Care Provider] - 1-2 days
[2022-09-21] MEDS ORDERED: NICOTINE 7MG/24HR PATCH TRANSDERM STA (17:25)
[2022-09-21] MEDS: fluPHENAZine DECANOATE 25 MG/ML 5ML MDV IM ONE ×2 (17:56→17:59)
[2022-09-21 18:19] LABS: Basophils % (A) 0 %; Eosinophils # (A) 0.1 k/uL (0-0.7); Eosinophils % (A) 1 %; HCT 45.3 % (39.0-53.0); HGB 15.1 gm/dL (13.0-17.5); Lymphocytes # (A) 2.6 k/uL (1.0-4.8); Lymphocytes % (A) 33 %; MCH 28.9 pg (25.0-35.0); MCHC 33.3 g/dL (31.0-37.0); MCV 86.7 fL (80.0-100.0); Mean Platelet Volume 7.7; Monocytes # (A) 0.5 k/uL (0-1.0); Monocytes % (A) 7 %; Neutrophils # (A) 4.4 k/uL (1.3-7.7); Neutrophils % (A) 57 %; Platelet Count 203 k/uL (150-450); RBC 5.23 m/uL (4.30-5.90); RDW 12.8 % (11.5-15.5); WBC 7.7 k/uL (3.8-10.6)
[2022-09-21 18:41] LABS: ALT 21 U/L (4-49); AST 25 U/L (17-59); African American GFR (CKD) >90 (>60 ml/min/1.73 sqM); Albumin 5.2 g/dL (3.5-5.0); Alkaline Phosphatase 64 U/L (38-126); Anion Gap 8 mmol/L; Blood Urea Nitrogen 12 mg/dL (9-20); Calcium 9.7 mg/dL (8.4-10.2); Carbon Dioxide 29 mmol/L (22-30); Chloride 103 mmol/L (98-107); Glucose 83 mg/dL (74-99); Non-African American GFR(CKD) >90 (>60 ml/min/1.73 sqM); Sodium 140 mmol/L (137-145); Total Bilirubin 1.3 mg/dL (0.2-1.3); Total Protein 8.7 g/dL (6.3-8.2)
[2022-09-21 20:23] LABS: Amorphous Sediment,Urine Few /hpf; Appearance,Urine Cloudy (Clear); Bilirubin,Urine Negative (Negative); Blood,Urine Negative (Negative); Color,Urine Yellow; Glucose,Urine (UA) Negative (Negative); Ketones,Urine Negative (Negative); Leukocyte Esterase,Urine Negative (Negative); Nitrite,Urine Negative (Negative); Protein,Urine Negative (Negative); Specific Gravity,Urine 1.015 (1.001-1.035); WBC,Urine <1 /hpf (0-5)
[2022-09-21 20:53] LABS: Amphetamine Screen,Urine Not Detected (NotDetected); Barbiturate Screen,Urine Not Detected (NotDetected); Benzodiazepines Screen,Urine Not Detected (NotDetected); Cocaine Screen,Urine Not Detected (NotDetected); Methadone Screen, Urine Not Detected (NotDetected); Opiate Screen,Urine Not Detected (NotDetected); Oxycodone Screen, Urine Not Detected (NotDetected); Phencyclidine Screen,Urine Not Detected (NotDetected); Tricyclic Antidepressant,Urine Not Detected (NotDetected); Urn Cannabinoid Scrn Detected (NotDetected)
[2022-09-21 22:00] VITALS: BP 130/70; PULSE 90
== END 2022-09-21 22:22 | disposition home or self-care (01) ==
LOC: EC 14:26
DX: F29 Unspecified psychosis not due to a substance or known physiological condition (principal); F17.200 Nicotine dependence, unspecified, uncomplicated; F12.90 Cannabis use, unspecified, uncomplicated; F11.90 Opioid use, unspecified, uncomplicated; Z20.822 Contact with and (suspected) exposure to COVID-19; Z91.013 Allergy to seafood; Z90.89 Acquired absence of other organs
CPT/HCPCS: 82075; 36415; 93005; 80053; 85025; 81001; 80306; 87635; 99285; 96372; S4990; J2680

== ENCOUNTER 2022-09-22 09:23 | Emergency (ER) | payer MEDICARE, OTHER ==
[2022-09-22 09:38] VITALS: BP 133/58; PULSE 83; RESP 14; TEMP 98
--- NOTE | 2022-09-22 10:07 | ED ---
General Adult HPI - General Chief complaint: Psychiatric Symptoms Stated complaint: Petition Time Seen by Provider: 09/22/22 09:23 Source: patient, police, EMS, RN notes reviewed, old records reviewed Mode of arrival: EMS Limitations: no limitations - History of Present Illness Initial comments: This is a 27-year-old male who presents emergency Department with police. Police petitioned because patient found to the [address] and the patient was asking to be run over. Patient was stating he is suicidal. Patient also urinated on himself and he told police that he was trying to get himself warm and then it froze. Patient is currently denying any suicidal ideations and when I asked him why he urinated on himself he stated that he was acting like an animal. Patient was in the emergency department yesterday. Patient denies any physical complaints today. - Related Data Home Medications Medication Instructions Recorded Confirmed fluPHENAZine HCl 20 mg PO BID 09/21/22 09/21/22 fluPHENAZine decanoate [Prolixin 50 mg IM Q28D 09/21/22 09/21/22 Decanoate] Allergies Allergy/AdvReac Type Severity Reaction Status Date / Time cantaloupe Allergy Anaphylaxis Verified 09/21/22 17:49 clonazepam [From Klonopin] AdvReac Hallucinati Verified 09/21/22 17:49 ons Review of Systems ROS Statement: Those systems with pertinent positive or pertinent negative responses have been documented in the HPI. ROS Other: All systems not noted in ROS Statement are negative. Past Medical History Past Medical History: No Reported History Additional Past Medical History / Comment(s): he thinks that he may of have a seizure at that time per history-- Pt states that he has never been dx with seizure history. History of Any Multi-Drug Resistant Organisms: None Reported Past Surgical History: Orthopedic Surgery, Tonsillectomy Past Anesthesia/Blood Transfusion Reactions: No Reported Reaction Past Psychological History: Anxiety, Bipolar, Depression, Schizophrenia Smoking Status: Current every day smoker Past Alcohol Use History: None Reported Past Drug Use History: Cocaine, Marijuana, Opiates - Past Family History Mother History Unknown: Yes Additional Family Medical History / Comment(s): Mother is alive with history of diabetes, hypertension, stroke, chronic back problems. Father Additional Family Medical History / Comment(s): Patient states he does not know his father but does know he has Hodgkin's lymphoma. Brother(s) Additional Family Medical History / Comment(s): Patient has 7/2 brothers and does not know any medical problems. Patient has 1 half-sister and he does not know her medical problems. General Exam - General Exam Comments Initial Comments: GENERAL: Patient is well-developed and well-nourished. Patient is nontoxic and well-hydrated and is in mild distress. ENT: Neck is soft and supple. No significant lymphadenopathy is noted. Oropharynx is clear. Moist mucous membranes. Neck has full range of motion without eliciting any pain. EYES: The sclera were anicteric and conjunctiva were pink and moist. Extraocular movements were intact and pupils were equal round and reactive to light. Eyelids were unremarkable. PULMONARY: Unlabored respirations. Good breath sounds bilaterally. No audible rales rhonchi or wheezing was noted. CARDIOVASCULAR: There is a regular rate and rhythm without any murmurs gallops or rubs. ABDOMEN: Soft and nontender with normal bowel sounds. SKIN: Skin is clear with no lesions or rashes and otherwise unremarkable. NEUROLOGIC: Patient is alert and oriented unable to assess total orientation because he does not answer all questions. Cranial nerves II through XII are grossly intact. Motor and sensory are also intact. Normal speech, volume and content. Symmetrical smile. MUSCULOSKELETAL: Normal extremities with adequate strength and full range of motion. LYMPHATICS: No significant lymphadenopathy is noted PSYCHIATRIC: Patient's responses are very slow and occasionally bizarre. Patient states she was acting like an animal that is why he urinated on himself. Limitations: no limitations Course Vital Signs 09/22/22 09:25 Temperature 98.0 F Pulse Rate 83 Respiratory 14 Rate Blood Pressure 133/58 O2 Sat by Pulse 97 Oximetry Medical Decision Making - Medical Decision Making Was pt. sent in by a medical professional or institution (, PA, [employer] DEVELOPMENT MANAGER, urgent care, hospital, or senior care...) When possible be specific @ -Patient was brought in by the police Did you speak to anyone other than the patient for history (EMS, parent, family, police, friend...)? What history was obtained from this source @ -Police gave all of the history Did you review nursing and triage notes (agree or disagree)? Why? @ -I reviewed and agree with nursing and triage notes Were old charts reviewed (outside hosp., previous admission, EMS record, old EKG, old radiological studies, urgent care reports/EKG's, senior care records)? Report findings @ -I reviewed patient's previous charts for previous visits Differential Diagnosis (chest pain, altered mental status, abdominal pain women, abdominal pain men, vaginal bleeding, weakness, fever, dyspnea, syncope, headache, dizziness, GI bleed, back pain, seizure, CVA, palpatations, mental health, musculoskeletal)? @ -Differential Mental Health Depression, anxiety, bipolar, psychosis, schizophrenia, borderline personality, situational depression, adjustment disorder, behavioral disorder, brain tumor, malingering, substance abuse, encephalopathy, medication reaction, dementia, hypothyroidism, degenerative neurologic disorder, lupus.... This is not meant to be all-inclusive list EKG interpreted by me (3pts min.). @ -As above X-rays interpreted by me (1pt min.). @ -None done CT interpreted by me (1pt min.). @ -None done U/S interpreted by me (1pt. min.). @ -None done What testing was considered but not performed or refused? (CT, X-rays, U/S, labs)? Why? @ -None What meds were considered but not given or refused? Why? @ -None Did you discuss the management of the patient with other professionals (professionals i.e. , PA, [employer] PR[employer] DEVELOPMENT MANAGER, lab, RT, psych nurse, pediatric social worker, neurourologist, teacher, placement officer, case coordinator)? Give summary @ -Patient was evaluated by EPS and arrangements were made for him to go by ambulance back to his mother's home and she is aware of this and willing to take the patient back Was smoking cessation discussed for >3mins.? @ -No Was critical care preformed (if so, how long)? @ -No Were there social determinants of health that impacted care today? How? (Homelessness, low income, unemployed, alcoholism, drug addiction, transportation, low edu. Level, literacy, decrease access to med. care, intermediate, rehab)? @ -No Was there de-escalation of care discussed even if they declined (Discuss DNR or withdrawal of care, Hospice)? DNR status @ -No What co-morbidities impacted this encounter? (DM, HTN, Smoking, COPD, CAD, Cancer, CVA, ARF, Chemo, Hep., AIDS, mental health diagnosis, sleep apnea, morbid obesity)? @ -None Was patient admitted / discharged? Hospital course, mention meds given and route, prescriptions, significant lab abnormalities, going to OR and other pertinent info. @ -Patient was seen by myself and evaluated by EPS and was determined that the patient safely be discharged to his mother's care Undiagnosed new problem with uncertain prognosis? @ -No Drug Therapy requiring intensive monitoring for toxicity (Heparin, Nitro, Insulin, Cardizem)? @ -No Were any procedures done? @ -No Diagnosis/symptom? @ -default Acute, or Chronic, or Acute on Chronic? @ -Situational depression Uncomplicated (without systemic symptoms) or Complicated (systemic symptoms)? @ -Uncomplicated Side effects of treatment? @ -No Exacerbation, Progression, or Severe Exacerbation? @ -No Poses a threat to life or bodily function? How? (Chest pain, [place], [place], pneumonia, PE, COPD, DKA, ARF, appy, cholecystitis, CVA, Diverticulitis, Homicidal, Suicidal, threat to staff... and all critical care pts) @ -No - Lab Data Lab Results 09/22/22 Range/Units 10:09 Urine Opiates Screen Not Detected (NotDetected) Ur Oxycodone Screen Not Detected (NotDetected) Urine Methadone Screen Not Detected (NotDetected) Ur Propoxyphene Screen Not Detected (NotDetected) Ur Barbiturates Screen Not Detected (NotDetected) U Tricyclic Antidepress Not Detected (NotDetected) Ur Phencyclidine Scrn Not Detected (NotDetected) Ur Amphetamines Screen Not Detected (NotDetected) U Methamphetamines Scrn Not Detected (NotDetected) U Benzodiazepines Scrn Not Detected (NotDetected) Urine Cocaine Screen Not Detected (NotDetected) U Marijuana (THC) Screen Detected H (NotDetected) Disposition Clinical Impression: Situational depression Disposition: HOME SELF-CARE Condition: Good Instructions (If sedation given, give patient instructions): Depression (ED) Is patient prescribed a controlled substance at d/c from ED?: No Referrals: Selvin Beaver MD [Primary Care Provider] - 1-2 days Time of Disposition: 13:14
[2022-09-22 10:44] LABS: Amphetamine Screen,Urine Not Detected (NotDetected); Barbiturate Screen,Urine Not Detected (NotDetected); Benzodiazepines Screen,Urine Not Detected (NotDetected); Cocaine Screen,Urine Not Detected (NotDetected); Methadone Screen, Urine Not Detected (NotDetected); Opiate Screen,Urine Not Detected (NotDetected); Oxycodone Screen, Urine Not Detected (NotDetected); Phencyclidine Screen,Urine Not Detected (NotDetected); Tricyclic Antidepressant,Urine Not Detected (NotDetected); Urn Cannabinoid Scrn Detected (NotDetected)
== END 2022-09-22 13:21 | disposition home or self-care (01) ==
LOC: EC 09:23
DX: F43.21 Adjustment disorder with depressed mood (principal); F41.9 Anxiety disorder, unspecified; F31.9 Bipolar disorder, unspecified; F17.200 Nicotine dependence, unspecified, uncomplicated; F12.90 Cannabis use, unspecified, uncomplicated; F11.90 Opioid use, unspecified, uncomplicated; F14.90 Cocaine use, unspecified, uncomplicated; Z88.6 Allergy status to analgesic agent
CPT/HCPCS: 80306; 82075; 99285

== ENCOUNTER 2022-09-22 22:10 | Emergency (ER) | payer MEDICARE, OTHER ==
[2022-09-22 22:40] VITALS: TEMP 98
--- NOTE | 2022-09-22 22:47 | ED ---
General Adult HPI - General Chief complaint: Psychiatric Symptoms Stated complaint: Petition Time Seen by Provider: 09/22/22 22:11 Source: patient Mode of arrival: EMS Limitations: no limitations - History of Present Illness Initial comments: Dictation was produced using [employer] dictation software. please excuse any grammatical, word or spelling errors. Chief Complaint: 27-year-old male past nuchal history of illicit drug abuse brought in by law enforcement for suicidal ideation History of Present Illness: 27-year-old male presents to the ER again after brought by police for telling police he was in a punch himself to . This is patient's third visit within the last 48 hours. Patient is porcine. He states he allegedly smoked meth prior to arrival. Patient does report suicidality. Unable to obtain given that patient is uncooperative PHYSICAL EXAM: General Impression: Alert and oriented, not in acute distress HEENT: Normocephalic atraumatic, extra-ocular movements intact, pupils equal and reactive to light bilaterally, mucous membranes moist. Cardiovascular: Heart regular rate and rhythm Chest: Able to complete full sentences, no retractions, no tachypnea Musculoskeletal: no peripheral edema Motor: no focal deficits noted Neurological: CN II-XII grossly intact, no focal motor or sensory deficits noted Skin: Intact with no visualized rashes Psych: Flat affect ED course: 27-year-old presents to the emergency Department for suicidal ideation. Patient appears to be stable. He is well-known to emergency department. Patient appears to be at baseline. Patient medically cleared for EPS evaluation. Nursing notes and chart review was performed Patient evaluated by EPS. He is given [facility]. Is allegedly homeless. EPS is familiar with the patient. He allegedly recently got an appointment with his mother has no place to stay. Patient is agreeable to go to the [facility]. Was pt. sent in by a medical professional or institution (, PA, SALES TEAM MANAGER, urgent care, hospital, or correction...) When possible be specific @ -No Did you speak to anyone other than the patient for history (EMS, parent, family, police, friend...)? What history was obtained from this source @ -Law enforcement, EPS nurse Did you review nursing and triage notes (agree or disagree)? Why? @ -I reviewed and agree with nursing and triage notes Were old charts reviewed (outside hosp., previous admission, EMS record, old EKG, old radiological studies, urgent care reports/EKG's, correction records)? Report findings @ -No old charts were reviewed Differential Diagnosis (chest pain, altered mental status, abdominal pain women, abdominal pain men, vaginal bleeding, musculoskeletal, weakness, fever, dyspnea, syncope, headache, dizziness, GI bleed, back pain, seizure, CVA, palpatations, mental health)? @ -Differential Mental Health: Depression, anxiety, bipolar, psychosis, schizophrenia, borderline personality, situational depression, adjustment disorder, behavioral disorder, brain tumor, malingering, substance abuse, encephalopathy, medication reaction, dementia, hypothyroidism, degenerative neurologic disorder, lupus.... This is not meant to be all-inclusive list EKG interpreted by me (3pts min.). @ -None done X-rays interpreted by me (1pt min.). @ -None done CT interpreted by me (1pt min.). @ -None done U/S interpreted by me (1pt. min.). @ -None done What testing was considered but not performed or refused? (CT, X-rays, U/S, labs)? Why? @ -None What meds were considered but not given or refused? Why? @ -None Did you discuss the management of the patient with other professionals (professionals i.e. , PA, SALES TEAM MANAGER, lab, RT, psych nurse, social insurance administrator, sleep lab technician, teacher, targeting acquisition officer, pillowcase sewer)? Give summary @ -EPS nurse Was smoking cessation discussed for >3mins.? @ -No Was critical care preformed (if so, how long)? @ -No Were there social determinants of health that impacted care today? How? (Homelessness, low income, unemployed, alcoholism, drug addiction, transportation, low edu. Level, literacy, decrease access to med. care, care home, rehab)? @ -No Was there de-escalation of care discussed even if they declined (Discuss DNR or withdrawal of care, Hospice)? DNR status @ -No What co-morbidities impacted this encounter? (DM, HTN, Smoking, COPD, CAD, Cancer, CVA, ARF, Chemo, Hep., AIDS, mental health diagnosis, sleep apnea, morbid obesity)? @ -None Was patient admitted / discharged? Hospital course, mention meds given and route, prescriptions, significant lab abnormalities, going to OR and other pertinent info. @ -27-year-old homeless male with reported suicidality represent the emergency department for the third time within 48 hours for suicidal behavior. Patient evaluated by EPS and will be given instructions to go to the [facility]. Patient is agreeable. Patient will be discharged. Undiagnosed new problem with uncertain prognosis? @ -No Drug Therapy requiring intensive monitoring for toxicity (Heparin, Nitro, Insulin, Cardizem)? @ -No Were any procedures done? @ -No Diagnosis/symptom? Acute, or Chronic, or Acute on Chronic? Uncomplicated (without systemic symptoms) or Complicated (systemic symptoms)? @ -1. Suicidal ideation, 2. Homeless Side effects of treatment? @ -No Exacerbation, Progression, or Severe Exacerbation? @ -No Poses a threat to life or bodily function? How? (Chest pain, [place], [place], pneumonia, PE, COPD, DKA, ARF, appy, cholecystitis, CVA, Diverticulitis, Homicidal, Suicidal, threat to staff... and all critical care pts) @ -yes - Related Data Home Medications Medication Instructions Recorded Confirmed fluPHENAZine HCl 20 mg PO BID 09/21/22 09/21/22 fluPHENAZine decanoate [Prolixin 50 mg IM Q28D 09/21/22 09/21/22 Decanoate] Allergies Allergy/AdvReac Type Severity Reaction Status Date / Time cantaloupe Allergy Anaphylaxis Verified 09/21/22 17:49 shellfish derived [Crab] Allergy Unknown Verified 09/22/22 22:22 clonazepam [From Klonopin] AdvReac Hallucinati Verified 09/21/22 17:49 ons Review of Systems ROS Statement: Those systems with pertinent positive or pertinent negative responses have been documented in the HPI. ROS Other: All systems not noted in ROS Statement are negative. Past Medical History Past Medical History: No Reported History Additional Past Medical History / Comment(s): he thinks that he may of have a seizure at that time per history-- Pt states that he has never been dx with seizure history. History of Any Multi-Drug Resistant Organisms: None Reported Past Surgical History: Orthopedic Surgery, Tonsillectomy Past Anesthesia/Blood Transfusion Reactions: No Reported Reaction Past Psychological History: Anxiety, Bipolar, Depression, Schizophrenia Smoking Status: Current every day smoker Past Alcohol Use History: None Reported Past Drug Use History: Cocaine, Marijuana, Methamphetamine, Opiates - Past Family History Mother History Unknown: Yes Additional Family Medical History / Comment(s): Mother is alive with history of diabetes, hypertension, stroke, chronic back problems. Father Additional Family Medical History / Comment(s): Patient states he does not know his father but does know he has Hodgkin's lymphoma. Brother(s) Additional Family Medical History / Comment(s): Patient has 7/2 brothers and does not know any medical problems. Patient has 1 half-sister and he does not know her medical problems. General Exam Limitations: no limitations Course Vital Signs 09/22/22 22:22 Temperature 98.0 F Pulse Rate 76 Respiratory 16 Rate Blood Pressure 121/80 O2 Sat by Pulse 98 Oximetry Disposition Clinical Impression: Homeless Disposition: HOME SELF-CARE Condition: Good Instructions (If sedation given, give patient instructions): Help Prevent Suicide (ED) Is patient prescribed a controlled substance at d/c from ED?: No Referrals: Mauro Beaver MD [Primary Care Provider] - 1-2 days Time of Disposition: 22:51
[2022-09-22 23:29] VITALS: BP 118/80; PULSE 80; RESP 18
== END 2022-09-22 23:29 | disposition home or self-care (01) ==
LOC: EC 22:10 → EEVIPCON 22:10 → EC 23:29
DX: F41.9 Anxiety disorder, unspecified (principal); F31.9 Bipolar disorder, unspecified; F17.200 Nicotine dependence, unspecified, uncomplicated; Z59.00 Homelessness unspecified; Z91.013 Allergy to seafood; Z88.8 Allergy status to other drugs, medicaments and biological substances
CPT/HCPCS: 82075; 99285

== ENCOUNTER 2023-07-06 10:17 | Emergency (ER) | payer MEDICARE, OTHER ==
[2023-07-06 11:11] LABS: Appearance,Urine Clear (Clear); Bilirubin,Urine Negative (Negative); Blood,Urine Negative (Negative); Color,Urine Yellow; Glucose,Urine (UA) Negative (Negative); Ketones,Urine 1+ (Negative); Leukocyte Esterase,Urine Negative (Negative); Nitrite,Urine Negative (Negative); Protein,Urine Trace (Negative); Specific Gravity,Urine 1.032 (1.001-1.035); Urobilinogen,Urine <2.0 mg/dL (<2.0)
[2023-07-06 11:49] LABS: Amphetamine Screen,Urine Not Detected (NotDetected); Barbiturate Screen,Urine Not Detected (NotDetected); Benzodiazepines Screen,Urine Not Detected (NotDetected); Cocaine Screen,Urine Not Detected (NotDetected); Methadone Screen, Urine Not Detected (NotDetected); Opiate Screen,Urine Not Detected (NotDetected); Oxycodone Screen, Urine Not Detected (NotDetected); Phencyclidine Screen,Urine Not Detected (NotDetected); Tricyclic Antidepressant,Urine Not Detected (NotDetected); Urn Cannabinoid Scrn Detected (NotDetected)
[2023-07-06] MEDS ORDERED: PALIPERIDONE IM 234 MG/1.5 ML SYG IM STA (12:50)
[2023-07-06 13:17] LABS: Basophils % (A) 0 %; Eosinophils # (A) 0.1 k/uL (0-0.7); Eosinophils % (A) 1 %; HCT 40.6 % (39.0-53.0); HGB 13.7 gm/dL (13.0-17.5); Lymphocytes # (A) 1.6 k/uL (1.0-4.8); Lymphocytes % (A) 27 %; MCH 28.9 pg (25.0-35.0); MCHC 33.7 g/dL (31.0-37.0); MCV 85.6 fL (80.0-100.0); Mean Platelet Volume 7.6; Monocytes # (A) 0.6 k/uL (0-1.0); Monocytes % (A) 11 %; Neutrophils # (A) 3.6 k/uL (1.3-7.7); Neutrophils % (A) 59 %; Platelet Count 228 k/uL (150-450); RBC 4.74 m/uL (4.30-5.90); RDW 12.4 % (11.5-15.5); WBC 6.1 k/uL (3.8-10.6)
[2023-07-06 13:36] LABS: ALT 18 U/L (4-49); AST 24 U/L (17-59); African American GFR (CKD) >90 (>60 ml/min/1.73 sqM); Albumin 4.6 g/dL (3.5-5.0); Alkaline Phosphatase 66 U/L (38-126); Anion Gap 13 mmol/L; Blood Urea Nitrogen 14 mg/dL (9-20); Calcium 9.3 mg/dL (8.4-10.2); Carbon Dioxide 23 mmol/L (22-30); Chloride 103 mmol/L (98-107); Glucose 96 mg/dL (74-99); Non-African American GFR(CKD) >90 (>60 ml/min/1.73 sqM); Potassium 4.2 mmol/L (3.5-5.1); Sodium 139 mmol/L (137-145); Total Bilirubin 0.9 mg/dL (0.2-1.3); Total Protein 7.7 g/dL (6.3-8.2)
[2023-07-06 13:42] LABS: Valproic Acid (Depakene) 17.7 ug/mL
--- NOTE | 2023-07-06 14:15 | ED ---
General Adult HPI - General Chief complaint: Psychiatric Symptoms Stated complaint: Mental Health Time Seen by Provider: 07/06/23 10:35 Source: patient, RN notes reviewed Mode of arrival: EMS Limitations: altered mental status - History of Present Illness Initial comments: 28-year-old male with an extensive past medical history significant for psychiatric evaluations presents the emergency department with a chief complaint of hallucinations. Patient reports via EMS. He reports "I feel older than I am and I just want everybody be safe and happy." He does report to visual and auditory hallucinations. When asked about his visual hallucinations patient describes provider as "caring, but unsure." He denies any illicit drug use. Denies any recent alcohol use. He denies any active suicidal or homicidal ideation. - Related Data Home Medications Medication Instructions Recorded Confirmed Divalproex ER [Depakote ER] 1,000 mg PO HS 07/06/23 07/06/23 Paliperidone IM [Invega Sustenna] 234 mg IM QMONTHLY 07/06/23 07/06/23 QUEtiapine [SEROquel] 200 mg PO HS 07/06/23 07/06/23 Allergies Allergy/AdvReac Type Severity Reaction Status Date / Time cantaloupe Allergy Anaphylaxis Verified 07/06/23 14:43 shellfish derived [Crab] Allergy Unknown Verified 07/06/23 14:43 clonazepam [From Klonopin] AdvReac Hallucinati Verified 07/06/23 14:43 ons Review of Systems ROS Statement: Those systems with pertinent positive or pertinent negative responses have been documented in the HPI. ROS Other: All systems not noted in ROS Statement are negative. Past Medical History Past Medical History: No Reported History Additional Past Medical History / Comment(s): he thinks that he may of have a seizure at that time per history-- Pt states that he has never been dx with seizure history. History of Any Multi-Drug Resistant Organisms: None Reported Past Surgical History: Orthopedic Surgery, Tonsillectomy Past Anesthesia/Blood Transfusion Reactions: No Reported Reaction Past Psychological History: Anxiety, Bipolar, Depression, Schizophrenia Past Drug Use History: Cocaine, Marijuana, Methamphetamine, Opiates - Past Family History Mother History Unknown: Yes Additional Family Medical History / Comment(s): Mother is alive with history of diabetes, hypertension, stroke, chronic back problems. Father Additional Family Medical History / Comment(s): Patient states he does not know his father but does know he has Hodgkin's lymphoma. Brother(s) Additional Family Medical History / Comment(s): Patient has 7/2 brothers and does not know any medical problems. Patient has 1 half-sister and he does not know her medical problems. General Exam - General Exam Comments Initial Comments: General: Alert, in no acute distress Head: atraumatic normocephalic. Eyes PERRL, EOMI intact, mucous membranes moist Respiratory: Lungs clear to auscultation bilaterally Cardiovascular: Heart rate regular rate and rhythm Abdominal: Soft without guarding or rebound Extremities: Normal inspection with full range of motion and normal capillary refill Neuroogic: alert and oriented 3, CN II-XII intact, able to ambulate with steady gait Skin: warm dry and intact with normal color Limitations: altered mental status Course Vital Signs 07/06/23 07/06/23 10:30 10:34 Temperature 97.0 F L Pulse Rate 84 68 Respiratory 20 16 Rate Blood Pressure 148/90 146/90 O2 Sat by Pulse 98 98 Oximetry - Reevaluation(s) Reevaluation #1: 07/06/23 11:20 Patient is medically clear. Reevaluation #2: 07/06/23 14:20 case discussed with EPS rn who recommends crisis unit to transport patient to [facility] for continuation of care. Medical Decision Making - Medical Decision Making Was pt. sent in by a medical professional or institution (ANNELISE Rodríguez, SANDFILL OPERATOR SURFACE, urgent care, hospital, or prison...) When possible be specific @ -[No] Did you speak to anyone other than the patient for history (EMS, parent, family, police, friend...)? What history was obtained from this source @ -[No] Did you review nursing and triage notes (agree or disagree)? Why? @ -[I reviewed and agree with nursing and triage notes] Were old charts reviewed (outside hosp., previous admission, EMS record, old EKG, old radiological studies, urgent care reports/EKG's, prison records)? Report findings @ -[No old charts were reviewed] Differential Diagnosis (chest pain, altered mental status, abdominal pain women, abdominal pain men, vaginal bleeding, weakness, fever, dyspnea, syncope, headache, dizziness, GI bleed, back pain, seizure, CVA, palpatations, mental health, musculoskeletal)? @ -[not applicable] EKG interpreted by me (3pts min.). @ -[As above] X-rays interpreted by me (1pt min.). @ -[None done] CT interpreted by me (1pt min.). @ -[None done] U/S interpreted by me (1pt. min.). @ -[None done] What testing was considered but not performed or refused? (CT, X-rays, U/S, labs)? Why? @ -[None] What meds were considered but not given or refused? Why? @ -[None] Did you discuss the management of the patient with other professionals (professionals i.e. , PA, SANDFILL OPERATOR SURFACE, lab, RT, psych nurse, social professionals, foundry metallurgist, teacher, railway patrol officer, senior case manager)? Give summary @ -Case discussed with EPS who recommends finding placement into [facility] for patient to be discharged home to Was smoking cessation discussed for >3mins.? @ -[No] Was critical care preformed (if so, how long)? @ -[No] Were there social determinants of health that impacted care today? How? (Homelessness, low income, unemployed, alcoholism, drug addiction, trans portation, low edu. Level, literacy, decrease access to med. care, residential, rehab)? @ -[No] Was there de-escalation of care discussed even if they declined (Discuss DNR or withdrawal of care, Hospice)? DNR status @ -[No] What co-morbidities impacted this encounter? (DM, HTN, Smoking, COPD, CAD, Cancer, CVA, ARF, Chemo, Hep., AIDS, mental health diagnosis, sleep apnea, morbid obesity)? @ -[None] Was patient admitted / discharged? Hospital course, mention meds given and route, prescriptions, significant lab abnormalities, going to OR and other pertinent info. @ -Discharged. This is a pleasant 28-year-old who presents the emergency department with a chief complaint of hallucinations. Patient had a thorough history and physical exam performed. Physical exam is essentially unremarkable. Heart rate regular rate and rhythm, lungs are to auscultation bilaterally abdomen soft nontender. There are no focal neuro deficits noted upon exam. Patient had laboratory studies and urinalysis which were unremarkable. She was medically cleared. He was evaluated by vascular recommends contacting mobile crisis unit in order to find placement into [facility]. I discussed the results in detail with the patient verbalized understanding all questions were addressed. She is agreeable with the plan for discharge home. Return precautions were discussed at length. Case is discussed, with Dr. Miranda ED attending who agrees with plan of care Undiagnosed new problem with uncertain prognosis? @ -[No] Drug Therapy requiring intensive monitoring for toxicity (Heparin, Nitro, Insulin, Cardizem)? @ -[No] Were any procedures done? @ -[No] Diagnosis/symptom? @ -Psychiatric evaluation Acute, or Chronic, or Acute on Chronic? @ -Acute Uncomplicated (without systemic symptoms) or Complicated (systemic symptoms)? @ -Uncomplicated Side effects of treatment? @ -[No] Exacerbation, Progression, or Severe Exacerbation? @ -[No] Poses a threat to life or bodily function? How? (Chest pain, USA, OR, pneumonia, PE, COPD, DKA, ARF, appy, cholecystitis, CVA, Diverticulitis, Homicidal, Suicidal, threat to staff... and all critical care pts) @ -Low likelihood - Lab Data Result diagrams: 07/06/23 13:00 07/06/23 13:00 Lab Results 07/06/23 07/06/23 07/06/23 Range/Units 10:48 10:48 13:00 WBC 6.1 (3.8-10.6) k/uL RBC 4.74 (4.30-5.90) m/uL Hgb 13.7 (13.0-17.5) gm/dL Hct 40.6 (39.0-53.0) % MCV 85.6 (80.0-100.0) fL MCH 28.9 (25.0-35.0) pg MCHC 33.7 (31.0-37.0) g/dL RDW 12.4 (11.5-15.5) % Plt Count 228 (150-450) k/uL MPV 7.6 Neutrophils % 59 % Lymphocytes % 27 % Monocytes % 11 % Eosinophils % 1 % Basophils % 0 % Neutrophils # 3.6 (1.3-7.7) k/uL Lymphocytes # 1.6 (1.0-4.8) k/uL Monocytes # 0.6 (0-1.0) k/uL Eosinophils # 0.1 (0-0.7) k/uL Basophils # 0.0 (0-0.2) k/uL Sodium (137-145) mmol/L Potassium (3.5-5.1) mmol/L Chloride (98-107) mmol/L Carbon Dioxide (22-30) mmol/L Anion Gap mmol/L BUN (9-20) mg/dL Creatinine (0.66-1.25) mg/dL Est GFR (CKD-EPI)AfAm (>60 ml/min/1.73 sqM) Est GFR (CKD-EPI)NonAf (>60 ml/min/1.73 sqM) Glucose (74-99) mg/dL Calcium (8.4-10.2) mg/dL Total Bilirubin (0.2-1.3) mg/dL AST (17-59) U/L ALT (4-49) U/L Alkaline Phosphatase (38-126) U/L Ammonia (<30) umol/L Total Protein (6.3-8.2) g/dL Albumin (3.5-5.0) g/dL Urine Color Yellow Urine Appearance Clear (Clear) Urine pH 6.0 (5.0-8.0) Ur Specific [place] 1.032 (1.001-1.035) Urine Protein Trace H (Negative) Urine Glucose (UA) Negative (Negative) Urine Ketones 1+ H (Negative) Urine Blood Negative (Negative) Urine Nitrite Negative (Negative) Urine Bilirubin Negative (Negative) Urine Urobilinogen <2.0 (<2.0) mg/dL Ur Leukocyte Esterase Negative (Negative) Urine Opiates Screen Not Detected (NotDetected) Ur Oxycodone Screen Not Detected (NotDetected) Urine Methadone Screen Not Detected (NotDetected) Ur Barbiturates Screen Not Detected (NotDetected) Valproic Acid ug/mL U Tricyclic Antidepress Not Detected (NotDetected) Ur Phencyclidine Scrn Not Detected (NotDetected) Ur Amphetamines Screen Not Detected (NotDetected) U Methamphetamines Scrn Not Detected (NotDetected) U Benzodiazepines Scrn Not Detected (NotDetected) Urine Cocaine Screen Not Detected (NotDetected) U Marijuana (THC) Screen Detected H (NotDetected) SARS-CoV-2 (PCR) (Not Detectd) 07/06/23 07/06/23 07/06/23 Range/Units 13:00 13:00 13:00 WBC (3.8-10.6) k/uL RBC (4.30-5.90) m/uL Hgb (13.0-17.5) gm/dL Hct (39.0-53.0) % MCV (80.0-100.0) fL MCH (25.0-35.0) pg MCHC (31.0-37.0) g/dL RDW (11.5-15.5) % Plt Count (150-450) k/uL MPV Neutrophils % % Lymphocytes % % Monocytes % % Eosinophils % % Basophils % % Neutrophils # (1.3-7.7) k/uL Lymphocytes # (1.0-4.8) k/uL Monocytes # (0-1.0) k/uL Eosinophils # (0-0.7) k/uL Basophils # (0-0.2) k/uL Sodium 139 (137-145) mmol/L Potassium 4.2 (3.5-5.1) mmol/L Chloride 103 (98-107) mmol/L Carbon Dioxide 23 (22-30) mmol/L Anion Gap 13 mmol/L BUN 14 (9-20) mg/dL Creatinine 0.80 (0.66-1.25) mg/dL Est GFR (CKD-EPI)AfAm >90 (>60 ml/min/1.73 sqM) Est GFR (CKD-EPI)NonAf >90 (>60 ml/min/1.73 sqM) Glucose 96 (74-99) mg/dL Calcium 9.3 (8.4-10.2) mg/dL Total Bilirubin 0.9 (0.2-1.3) mg/dL AST 24 (17-59) U/L ALT 18 (4-49) U/L Alkaline Phosphatase 66 (38-126) U/L Ammonia 39 H (<30) umol/L Total Protein 7.7 (6.3-8.2) g/dL Albumin 4.6 (3.5-5.0) g/dL Urine Color Urine Appearance (Clear) Urine pH (5.0-8.0) Ur Specific [place] (1.001-1.035) Urine Protein (Negative) Urine Glucose (UA) (Negative) Urine Ketones (Negative) Urine Blood (Negative) Urine Nitrite (Negative) Urine Bilirubin (Negative) Urine Urobilinogen (<2.0) mg/dL Ur Leukocyte Esterase (Negative) Urine Opiates Screen (NotDetected) Ur Oxycodone Screen (NotDetected) Urine Methadone Screen (NotDetected) Ur Barbiturates Screen (NotDetected) Valproic Acid 17.7 ug/mL U Tricyclic Antidepress (NotDetected) Ur Phencyclidine Scrn (NotDetected) Ur Amphetamines Screen (NotDetected) U Methamphetamines Scrn (NotDetected) U Benzodiazepines Scrn (NotDetected) Urine Cocaine Screen (NotDetected) U Marijuana (THC) Screen (NotDetected) SARS-CoV-2 (PCR) Not Detected (Not Detectd) Disposition Clinical Impression: Hallucination, Psychiatric complaint Disposition: HOME SELF-CARE Condition: Stable Additional Instructions: Please return to the nearest emergency department if worsening symptoms Is patient prescribed a controlled substance at d/c from ED?: No Referrals: None,Stated [Primary Care Provider] - 1-2 days Time of Disposition: 16:58
[2023-07-06 18:51] VITALS: BP 145/68; PULSE 70; RESP 20; TEMP 98.1
== END 2023-07-06 18:00 | disposition home or self-care (01) ==
LOC: EC 10:17
DX: Z00.8 Encounter for other general examination (principal); F12.90 Cannabis use, unspecified, uncomplicated; Z86.59 Personal history of other mental and behavioral disorders; Z91.013 Allergy to seafood; Z88.8 Allergy status to other drugs, medicaments and biological substances; Z20.822 Contact with and (suspected) exposure to COVID-19
CPT/HCPCS: 82075; 36415; 80164; 80053; 82140; 85025; 81003; 80306; 87635; 99285; 96372; J2426

== ENCOUNTER 2023-07-31 15:33 | Emergency (ER) | payer MEDICARE, OTHER ==
[2023-07-31 15:47] VITALS: BP 125/77; PULSE 125; RESP 18; TEMP 98.1
--- NOTE | 2023-07-31 16:13 | ED ---
General Adult HPI - General Chief complaint: Psychiatric Symptoms Stated complaint: mental health picker feeder Time Seen by Provider: 07/31/23 15:48 Source: patient, RN notes reviewed, old records reviewed Mode of arrival: ambulatory Limitations: no limitations - History of Present Illness Initial comments: Patient is a 28-year-old male who presents emergency department as a court order pickup for psychiatric evaluation. [facility] staff reports increased paranoia for the patient, thinks people are tapping into his phones, [place] Seems to have some flight of ideas. Is refusing med review appointment and injection as well as refusing to meet with [facility]. Usually has a monthly injection. Was brought in by police for psychiatric evaluation via court order pickup. Patient currently seems paranoid, thinks we are going to draw his blood when no one has even stated that to him. He has no acute complaints at this time. Does acknowledge she has not received his injection. States it is because he does not have a ride. States he has been compliant with his other meds. Denies any suicidal or homicidal ideations, intents complaints. Denies any visual or auditory hallucinations. Has no other acute complaints at this time. Presents for further evaluation and psychiatric evaluation for medication review and injection.Patient is irritated that he was brought here but is cooperative. Is just asking for his injection. Patient is complaining of some chronic dental pain on the left side. He has old teeth that seem to have split. Has been like this for multiple months. Worsening pain lately. Still needs to see dentist. No other acute complaints at this time. - Related Data Home Medications Medication Instructions Recorded Confirmed Divalproex ER [Depakote ER] 1,000 mg PO HS 07/06/23 07/06/23 Paliperidone IM [Invega Sustenna] 234 mg IM QMONTHLY 07/06/23 07/06/23 QUEtiapine [SEROquel] 200 mg PO HS 07/06/23 07/06/23 Previous Rx's Medication Instructions Recorded Acetaminophen Tab [Tylenol] 500 mg PO Q6H 7 Days #28 tablet 07/31/23 Amoxic-Pot Clav 875-125Mg 1 tab PO Q12HR 7 Days #14 tab 07/31/23 [Augmentin 875-125] Allergies Allergy/AdvReac Type Severity Reaction Status Date / Time cantaloupe Allergy Anaphylaxis Verified 07/31/23 15:45 shellfish derived [Crab] Allergy Unknown Verified 07/31/23 15:45 clonazepam [From Klonopin] AdvReac Hallucinati Verified 07/31/23 15:45 ons Review of Systems ROS Statement: Those systems with pertinent positive or pertinent negative responses have been documented in the HPI. Review of Systems: CONST: Denies fever EYES: Denies blurry vision ENT: Denies nasal congestion C/V: Denies Chest pain RESP: Denies shortness of breath GI: Denies abdominal pain : Denies dysuria SKIN: Denies rash. MSK: Denies joint pain. NEURO: Denies headache PSYCH: Denies suicidal and homicidal ideations/plans/attempts. Denies visual or auditory hallucinations. ROS Other: All systems not noted in ROS Statement are negative. Past Medical History Past Medical History: No Reported History Additional Past Medical History / Comment(s): he thinks that he may of have a seizure at that time per history-- Pt states that he has never been dx with seizure history. History of Any Multi-Drug Resistant Organisms: None Reported Past Surgical History: Orthopedic Surgery, Tonsillectomy Past Anesthesia/Blood Transfusion Reactions: No Reported Reaction Past Psychological History: Anxiety, Bipolar, Depression, Schizophrenia Past Drug Use History: Cocaine, Marijuana, Methamphetamine, Opiates - Past Family History Mother History Unknown: Yes Additional Family Medical History / Comment(s): Mother is alive with history of diabetes, hypertension, stroke, chronic back problems. Father Additional Family Medical History / Comment(s): Patient states he does not know his father but does know he has Hodgkin's lymphoma. Brother(s) Additional Family Medical History / Comment(s): Patient has 7/2 brothers and does not know any medical problems. Patient has 1 half-sister and he does not know her medical problems. General Exam - General Exam Comments Initial Comments: General: Appears in no acute distress. HEAD: Normal with no signs of head trauma. EYES: PERRLA, EOMI, conjunctiva normal, no discharge. ENT: Hearing grossly intact, normal oropharynx. RESPIRATORY: Clear breath sounds bilaterally. No wheezes, rales, or rhonchi. C/V: Regular rate and rhythm. S1 and S2 auscultated, peripheral pulses 2+ and intact throughout ABD: Abd is soft, nontender, nondistended EXT: Normal range of motion, no obvious deformity SKIN: No rashes or lesions observed on exposed skin. NEURO: Alert and oriented x 4. Limitations: no limitations Course Vital Signs 07/31/23 15:42 Temperature 98.1 F Pulse Rate 125 H Respiratory 18 Rate Blood Pressure 125/77 O2 Sat by Pulse 97 Oximetry Medical Decision Making - Medical Decision Making Was pt. sent in by a medical professional or institution (, ANNELISE, MANNEQUIN MOLDER, urgent care, hospital, or intermediate...) When possible be specific @ -Court ordered pickup and drop off at the emergency department Did you speak to anyone other than the patient for history (EMS, parent, family, police, friend...)? What history was obtained from this source @ -No Did you review nursing and triage notes (agree or disagree)? Why? @ -I reviewed and agree with nursing and triage notes Were old charts reviewed (outside hosp., previous admission, EMS record, old EKG, old radiological studies, urgent care reports/EKG's, intermediate records)? Report findings @ -Old charts reviewed Differential Diagnosis (chest pain, altered mental status, abdominal pain women, abdominal pain men, vaginal bleeding, weakness, fever, dyspnea, syncope, headache, dizziness, GI bleed, back pain, seizure, CVA, palpatations, mental health, musculoskeletal)? @ -Differential Mental Health Depression, anxiety, bipolar, psychosis, schizophrenia, borderline personality, situational depression, adjustment disorder, behavioral disorder, brain tumor, malingering, substance abuse, encephalopathy, medication reaction, dementia, hypothyroidism, degenerative neurologic disorder, lupus.... This is not meant to be all-inclusive list EKG interpreted by me (3pts min.). @ -None done X-rays interpreted by me (1pt min.). @ -None done CT interpreted by me (1pt min.). @ -None done U/S interpreted by me (1pt. min.). @ -None done What testing was considered but not performed or refused? (CT, X-rays, U/S, labs)? Why? @ -None What meds were considered but not given or refused? Why? @ -None Did you discuss the management of the patient with other professionals (professionals i.e. , ANNELISE, MANNEQUIN MOLDER, lab, RT, psych nurse, protective services social worker, electric detector operator, teacher, occupational medicine officer, case investigator)? Give summary @ -EPS notified of the consult. EPS evaluated the patient. Determined he does not meet inpatient criteria. Psychiatrist on-call is uncomfortable giving the patient his normal monthly injection that is documented in the chart and he has been present for multiple times in the past. I was comfortable with ordering the patient's Invega Sustenna. This is the sole reason why he was brought to the emergency department for evaluation. Was smoking cessation discussed for >3mins.? @ -No Was critical care preformed (if so, how long)? @ -No Were there social determinants of health that impacted care today? How? (Homelessness, low income, unemployed, alcoholism, drug addiction, transportation, low edu. Level, literacy, decrease access to med. care, long-term, rehab)? @ -No Was there de-escalation of care discussed even if they declined (Discuss DNR or withdrawal of care, Hospice)? DNR status @ -No What co-morbidities impacted this encounter? (DM, HTN, Smoking, COPD, CAD, Cancer, CVA, ARF, Chemo, Hep., AIDS, mental health diagnosis, sleep apnea, morbid obesity)? @ -None Was patient admitted / discharged? Hospital course, mention meds given and route, prescriptions, significant lab abnormalities, going to OR and other pertinent info. @ -Presents as a court ordered petition for psychiatric evaluation as he was refusing his injection. Patient is currently cooperative. He was placed in green scrubs. Denies any suicidal or homicidal ideations or attempts or plans. Denies any hallucinations. Per pickup note, has been having increased paranoia. BAT is 0. UDS is pending. Vitals are within acceptable limits. He was initially somewhat tachycardic but that is likely secondary to agitation and was it is improved at bedside. At this time patient is medically cleared for evaluation by psychiatry. Disposition is pending psychiatric evaluation. EPS was notified of the consult. EPS evaluated the patient. Determined he does not meet inpatient criteria. Psychiatrist on-call is uncomfortable giving the patient his normal monthly injection that is documented in the chart and he has been present for multiple times in the past. I was comfortable with ordering the patient's Invega Sustenna. This is the sole reason why he was brought to the emergency department for evaluation. At this time he did reveal to me his dental issues. On exam it looks like he has chronic poor dentition. Worsening pain lately. He will be given a dose of a steroid and placed on Augmentin as well as Tylenol at the [facility]. Recommended follow-up with a dentist. He was in agreement this plan. Strict return precautions discussed. I will provide the patient with a prescription for Augmentin, Tylenol. I instructed the patient to follow up with their PCP in the next 1-3 days. I explained that the patient should return to the emergency department if they experience any worsening symptoms. Strict return precautions were discussed with the patient. The patient expressed understanding of these instructions. I an swered all questions that the patient had. The patient was discharged home in good condition with their prescriptions and follow up information. Undiagnosed new problem with uncertain prognosis? @ -No Drug Therapy requiring intensive monitoring for toxicity (Heparin, Nitro, Insulin, Cardizem)? @ -No Were any procedures done? @ -No Diagnosis/symptom? @ -Encounter for psychiatric evaluation, to take Acute, or Chronic, or Acute on Chronic? @ -Acute Uncomplicated (without systemic symptoms) or Complicated (systemic symptoms)? @ -Uncomplicated Side effects of treatment? @ -None Exacerbation, Progression, or Severe Exacerbation] @ -No Poses a threat to life or bodily function? @ -No - Lab Data Lab Results 07/31/23 Range/Units 16:11 Urine Opiates Screen Not Detected (NotDetected) Ur Oxycodone Screen Not Detected (NotDetected) Urine Methadone Screen Not Detected (NotDetected) Ur Barbiturates Screen Not Detected (NotDetected) U Tricyclic Antidepress Detected H (NotDetected) Ur Phencyclidine Scrn Not Detected (NotDetected) Ur Amphetamines Screen Not Detected (NotDetected) U Methamphetamines Scrn Not Detected (NotDetected) U Benzodiazepines Scrn Not Detected (NotDetected) Urine Cocaine Screen Not Detected (NotDetected) U Marijuana (THC) Screen Detected H (NotDetected) Disposition Clinical Impression: Encounter for psychiatric assessment, Tooth ache Disposition: HOME SELF-CARE Condition: Good Instructions (If sedation given, give patient instructions): Toothache (ED) Prescriptions: Amoxic-Pot Clav 875-125Mg [Augmentin 875-125] 1 tab PO Q12HR 7 Days #14 tab Acetaminophen Tab [Tylenol] 500 mg PO Q6H 7 Days #28 tablet Is patient prescribed a controlled substance at d/c from ED?: No Referrals: None,Stated [Primary Care Provider] - 1-2 days Forms: Area PCPs Time of Disposition: 17:37
[2023-07-31 16:40] LABS: Amphetamine Screen,Urine Not Detected (NotDetected); Barbiturate Screen,Urine Not Detected (NotDetected); Benzodiazepines Screen,Urine Not Detected (NotDetected); Cocaine Screen,Urine Not Detected (NotDetected); Methadone Screen, Urine Not Detected (NotDetected); Opiate Screen,Urine Not Detected (NotDetected); Oxycodone Screen, Urine Not Detected (NotDetected); Phencyclidine Screen,Urine Not Detected (NotDetected); Tricyclic Antidepressant,Urine Detected (NotDetected); Urn Cannabinoid Scrn Detected (NotDetected)
[2023-07-31] MEDS ORDERED: PALIPERIDONE IM 234 MG/1.5 ML SYG IM STA (17:23)
[2023-07-31] MEDS ORDERED: ACETAMINOPHEN TAB 500 MG TAB PO STA (17:38)
[2023-07-31] MEDS ORDERED: AMOXIC-POT CLAV 875-125MG 1 EACH TAB PO STA (17:38)
== END 2023-07-31 18:50 | disposition home or self-care (01) ==
LOC: EC 15:33
DX: Z00.8 Encounter for other general examination (principal); K08.89 Other specified disorders of teeth and supporting structures; F12.90 Cannabis use, unspecified, uncomplicated; Z86.59 Personal history of other mental and behavioral disorders; Z91.013 Allergy to seafood; Z88.8 Allergy status to other drugs, medicaments and biological substances
CPT/HCPCS: 82075; 80306; 99285; 96372; J2426